=== PATIENT | male | born 1995 | race Caucasian/White ===

== ENCOUNTER 2018-11-24 17:10 | Emergency (ER) | payer MEDICAID, SELFPAY ==
[2018-11-24 17:12] VITALS: BP 156/103; PULSE 111; RESP 14; TEMP 36.7; O2SAT 95; BMI 28.4
--- NOTE | 2018-11-24 18:53 | ED.VISSUMM ---
- ER Visit Summary Date of Service: 11/24/18 Chief Complaint: Nausea, vomiting, diarrhea History of Present Illness: The patient is a 23 M presents to the emergency department approximately 18 hours of symptoms of gastroenteritis. Patient states that last night, he began to have some abdominal cramping. He states that he was having a mild headache and generalized malaise. He states shortly thereafter, he began to vomit. He states he vomited about 2 or 3 times. He is now had 10 episodes of loose, watery diarrhea. He does not think he had fever. He does admit to some myalgias and arthralgias. He denies any recent sick contacts. There is been no blood in the emesis or the diarrhea. He has no history of Crohn's disease or ulcerative colitis. He has no history of prior abdominal surgery. Physical Examination: Vital signs reviewed General: Well-nourished, well-developed Head: Normocephalic, atraumatic Eyes: Pupils equal and reactive, extraocular muscles intact Neck, supple, no lymphadenopathy Heart: Regular rate and rhythm Respiratory: No distress, clear bilaterally Abdomen: Soft, nontender, nondistended, no peritoneal signs Back: Nontender Extremities: Nontender, no edema, no cords Skin: Normal color no rash Neuro: Alert and oriented, no focal or lateralizing deficits Test Results: [] Emergency Department Course and Treatment: The patient's abdomen is soft and nontender. He has no reproducible tenderness. His exam is relatively unremarkable. The patient did not want any IV medication or laboratory workup. I do feel that this is reasonable. He does appear to be well hydrated. He does not have a fever. He has no focal tenderness. The patient is treated with Zofran, Bentyl, Imodium, Tylenol. I will continue him on these medications as an outpatient. He was counseled on concerning symptoms and reasons to return. He will be discharged home. Treatment Plan: [] Disposition: Discharge Impression: Gastroenteritis This note was generated with [employer] dictation software. It may contain incorrect words, spelling, and punctuation that were not noted in review of the chart prior to signing ED Disposition - Plan for ED Patient: Chief Complaint: Nausea/Vomiting/Diarrhea Instructions: ED Gastroenteritis Vs Food Poison Prescriptions: Ondansetron [Zofran Odt] 4 mg PO Q8H PRN PRN #10 tab PRN Reason: Nausea Dicyclomine HCl [Bentyl] 20 mg PO TIDAC #20 cap Referrals: Care Physician,No Primary [Primary Care Provider] -
[2018-11-24] MEDS: Dicyclomine 10 MG Capsule 20 MG PO (19:00)
[2018-11-24] MEDS: Acetaminophen 500 MG Tablet 1000 MG PO (19:00)
[2018-11-24] MEDS: Loperamide 2 MG Capsule 4 MG PO (19:00)
[2018-11-24] MEDS: Ondansetron ODT 4 MG Tablet 8 MG PO (19:00)
[2018-11-24 19:46] VITALS: BP 137/77; PULSE 90; RESP 16; O2SAT 94
== END 2018-11-24 19:47 | disposition home or self-care (01) ==
LOC: ED 19:10
PROVIDERS: Emergency Provider Emergency Medicine
DX: K52.9 Noninfective gastroenteritis and colitis, unspecified (principal)
CPT/HCPCS: 99283

== ENCOUNTER 2019-02-25 23:35 | Emergency (ER) | payer MEDICAID, SELFPAY ==
[2019-02-25 23:36] VITALS: BP 140/95; PULSE 115; RESP 18; TEMP 37.2; O2SAT 99; BMI 25.4
--- NOTE | 2019-02-25 23:48 | EKG12_ITS ---
Test Reason : HEAD INJURY Blood Pressure : / mmHG Vent. Rate : 098 BPM Atrial Rate : 098 BPM P-R Int : 150 ms QRS Dur : 094 ms QT Int : 356 ms P-R-T Axes : 038 031 016 degrees QTc Int : 454 ms Normal sinus rhythm Nonspecific T wave abnormality Abnormal ECG Confirmed by ASHLEY SALAZAR, PRISCILA ([id number]), marketing editor KRZYSZTOF EDDY ([id number]) on 03/02/2019 1:42:07 PM Referred By: YIN Confirmed By:PRISCILA RAMIREZ MD
--- NOTE | 2019-02-26 00:05 | CT_ITS ---
HISTORY: fall, hit back of head, headache, patient admits to drinking EXAMINATION: CT Spine Cervical W/O Contrast TECHNIQUE: Helically acquired images were obtained of the cervical spine. 2D reformatted images were reviewed. A radiation dose optimization technique was used for this scan. IV Contrast dosage and agent: None. COMPARISON: None FINDINGS: Visualization of the craniocervical junction and C1-C5 vertebrae. Motion artifact with nonvisualization of the lower cervical spine and upper dorsal spine. The CT exam as overall nondiagnostic in this regard. Intact dens and craniocervical junction. Straightening of the upper cervical spine with mild reversal of the normal cervical lordosis. The C1-C5 vertebra appear intact. Corresponding disc space heights are preserved. CT/Spine Cervical without Contras IMPRESSION: 1. Overall nondiagnostic exam secondary to motion artifact. 2. Intact craniocervical junction, dens, and C1-C5 vertebrae. 3. Consider follow-up CT exam if needed. Individualized dose optimization techniques were used for this CT. at 0126 Reported and signed by: Scot Gardiner MD Electronically Signed: Scot Gardiner, at 1:25 EDT Tel , Service support ,
[2019-02-26] MEDS: 0.9% Normal Saline 1,000 ML 1000 ML IV (00:08)
--- NOTE | 2019-02-26 00:14 | CT_ITS ---
HISTORY: fall, hit back of head, headache, patient admits to drinking EXAMINATION: CT Head or Brain W/O Contrast TECHNIQUE: Multiple axial images were obtained of the brain without intravenous contrast. A radiation dose optimization technique was used for this scan. IV Contrast dosage and agent: None. COMPARISON: Cranial CT report but not images 11/28/2013 FINDINGS: Normal ventricles and normal juares-white matter differentiation. No intracranial mass, hemorrhage, or acute intracranial abnormality. Posterior fossa structures are unremarkable. No suspicious extra-axial fluid collection. The calvarium appears intact. As visualized, the mastoids appear clear. Small dependent fluid levels within both maxillary sinuses and partial opacification of the left sphenoid sinus. CT/Brain/Head without Contrast IMPRESSION: 1. Normal CT brain without contrast. 2. Paranasal sinusitis, as above. Individualized dose optimization techniques were used for this CT. at 0119 Reported and signed by: Scot Gardiner MD Electronically Signed: Scot Gardiner, at 1:18 EDT Tel , Service support ,
[2019-02-26 00:19] LABS: Absolute Lymphocyte Count 1.66 X10^3/ul (0.83-4.51); Absolute Neutrophil Count 11.7 X10^3/uL (2.0-7.7); Basophil# 0.02 X10^3/uL; Basophil% 0.1 % (0-1); Eosinophil# 0.05 X10^3/uL; Eosinophils% 0.3 % (0-5); Hematocrit 48.2 % (40-54); Hemoglobin 16.6 g/dl (13.0-16.5); Lymphocyte # 1.66 X10^3/ul (4.0); Lymphocyte % 11.6 % (19-41); Mean Corp Hgb Conc 34.4 g/gl (32-36); Mean Corpuscular Hgb 30.3 pg (27.0-32.0); Mean Corpuscular Volume 88.1 fL (80-94); Monocyte# 0.87 X10^3/uL; Monocyte% 6.1 % (0-10); Neutrophil # 11.69 X10^3/uL (2.7-7.7); Neutrophil % 81.6 % (47-70); Platelet Count 190 K/mm3 (150-450); RBC Distribution Width CV 12.3 % (11.6-14.6); RBC Distribution Width SD 39.5 fl (35.1-43.9); Red Blood Count 5.47 M/mm3 (4.6-6.2); White Blood Count 14.3 K/mm3 (4.4-11.0)
[2019-02-26 00:24] LABS: Anion Gap 4 (5-15); BUN 16 mg/dL (7-18); BUN/Creat Ratio 12.7 RATIO (10-20); Calcium,Total 8.5 mg/dL (8.5-10.1); Chloride 103 mmol/L (98-107); Creatinine, Serum 1.26 mg/dL (0.70-1.30); EST Glomerular Filtration Rate 75 mL/min (>60); Est Glom Filt Rate - Afr Amer 91 mL/min (>60); Estimated Creatinine Clearance 100.08 ml/min; Glucose 92 mg/dL (74-106); Sodium Level 137 mmol/L (136-145)
[2019-02-26 00:26] LABS: POSITIVE COUNT NO; POSITIVE DIFFERENTIAL NO; POSITIVE MORPHOLOGY NO
--- NOTE | 2019-02-26 01:39 | ED.DCSUM_ITS ---
- ER Visit Summary Date of Service: 02/26/19 Chief Complaint: Head injury History of Present Illness: The patient is a 23 M reports falling off a barstool tonight and hitting his head on the floor. He states he did not have much to drink and does not know why he fell. He did lose consciousness. Patient reports history of irregular heartbeat. He has had syncope in the past. Physical Examination: Vital signs remarkable only for heart rate of 115. Patient sitting upright in bed no acute distress. Head neck examination reveals no obvious external sign of trauma. He has mild C-spine tenderness. Heart is regular rate and rhythm. Lung sounds are clear. Abdomen is soft nontender. Neuro exam is unremarkable. Test Results: EKG is sinus at 98 with no sign of acute ischemia. CBC reveals a white count of 14.3 with 81% neutrophils. Hemoglobin is concentrated at 16.6. Chemistry studies unremarkable. EtOH is 23. CT head is normal. CT the C-spine shows motion artifact, the spine is intact from base of skull through C5. Emergency Department Course and Treatment: Patient is given IV fluids and a dose of Toradol. Test results discussed with the patient. Treatment Plan: [] Disposition: Discharge Impression: 1. Fall 2. Closed head injury This note was generated with [employer] dictation software. It may contain incorrect words, spelling, and punctuation that were not noted in review of the chart prior to signing ED Disposition - Plan for ED Patient: Disposition: Home or Assisted Living Instructions: ED Head Injury Closed Prescriptions: Naproxen [Naprosyn] 500 mg PO BID PRN PRN #20 tablet PRN Reason: Pain Referrals: Chava Blanchard MD [NON-STAFF] - As Needed
[2019-02-26] MEDS: Ketorolac 30 MG/ML Syringe IV (02:26)
[2019-02-26 02:47] VITALS: BP 128/86; PULSE 102; RESP 18; O2SAT 100
--- NOTE | 2019-02-26 19:28 | ED.RN ---
mother of patient called in looking for patient. Advised mother patient was discharged home
== END 2019-02-26 03:10 | disposition home or self-care (01) ==
PROVIDERS: Emergency Provider Emergency Medicine
DX: S09.90XA Unspecified injury of head, initial encounter (principal); W08.XXXA Fall from other furniture, initial encounter; Y93.9 Activity, unspecified; Y92.9 Unspecified place or not applicable; Y99.9 Unspecified external cause status; Z72.0 Tobacco use
CPT/HCPCS: 70450; 72125; 80048; 80320; 85025; 93005; 96361; 96374; 99285; J7030; A4216; G0480

== ENCOUNTER 2019-02-28 12:59 | Emergency (ER) | payer MEDICAID, SELFPAY ==
[2019-02-28 13:00] VITALS: BP 160/101; PULSE 101; RESP 16; TEMP 36.7; O2SAT 96; BMI 26.4
--- NOTE | 2019-02-28 13:15 | CT_ITS ---
STUDY: CT BRAIN WITHOUT CONTRAST REASON FOR EXAM: Male, 23 years old. Head injury RADIATION DOSAGE (If Supplied By Facility): CTDIvol = ( 44.99 ) mGy, DLP = ( 829.85 ) mGycm TECHNIQUE: Transaxial CT imaging of the brain was performed without administration of intravenous contrast material. Individualized dose optimization techniques were used for this CT. COMPARISON: None. FINDINGS: There is no acute bleed or infarct. There are normal white matter tracts. The ventricles are normal in configuration. There is no hydrocephalus. The visualized paranasal sinuses are clear. The mastoid air cells are well aerated. There is no skull fracture. CT/Brain/Head without Contrast IMPRESSION: No acute intracranial abnormality. Electronically Signed: Seferino Rice, at 14:02 EDT Tel , Service support ,
--- NOTE | 2019-02-28 13:21 | ED.DCSUM_ITS ---
- ER Visit Summary Date of Service: 02/28/19 Chief Complaint: [Head injury] History of Present Illness: The patient is a 23 M [presents the emergency department after sustaining a head injury about 3 days ago. Patient states that he was at a bar/restaurant and had one beer and started to eat is burger. Chandra lindsay states that he fell back off his stool and struck his head on the ground. Patiently unconscious for several minutes. Patient eventually was seen in the emergency department that evening and had a CT scan of his brain that was unremarkable. Patient comes in with continued headache. Patient has had a difficult time sleeping. Complains of lightheadedness often. Complains of photophobia. He finally was told to return if symptoms worsen. Patient has had nausea but no vomiting.] Physical Examination: [HEENT-PERRLA, EOMI. Cranial nerves II through XII grossly intact. TMs clear. Mucous membranes moist. No adenopathy. Cardiovascular-regular rate and rhythm without murmur or ectopy Lungs-clear to auscultation, chest wall stable without crepitus or subcu emph ysema. Patient has superficial abrasions to the left anterior chest that were self-inflicted last evening. Abdomen-normoactive bowel sounds, soft, nontender, no rebound or rigidity, no peritoneal signs. Neuro yeqq-doldrr-jxhh and heel craig testing within normal limits, negative Romberg, negative pronator drift, fundi benign Extremities-intact ?4, normal range of motion, normal pulses. Left forearm- patient has superficial abrasions that were self-inflicted last evening.] Test Results: [CT scan of the brain without contrast was unremarkable.] Emergency Department Course and Treatment: [Patient advised use ibuprofen and Tylenol for discomfort. Patient will avoid screen time. Patient to get lots of rest and drink plenty of fluids.] Treatment Plan: [Follow-up with primary care physician within next 5 to 7 days. Patient is not suicidal or homicidal. He does not feel that he needs to speak with crisis.] Disposition: [Discharged home in stable condition.] Impression: [Postconcussive syndrome] This note was generated with [employer] software. It may contain incorrect words, spelling, and punctuation that were not noted in review of the chart prior to signing ED Disposition - Plan for ED Patient: Referrals: Care Physician,No Primary [Primary Care Provider] -
--- NOTE | 2019-02-28 13:39 | ED.RN ---
pt has superficial wound from self mutilation. wounds are clean and appear to be healing well. dr was informed. pt has a current psychologist with upcoming appointment. dr states pt doesn't need crisis to follow up with at current time. ariadna madden, rn [id number]
--- NOTE | 2019-02-28 14:10 | ED.DEP ---
ED Disposition - Plan for ED Patient: Instructions: ED Concussion Referrals: Care Physician,No Primary [Primary Care Provider] - Michelle Allison MD [STAFF PHYSICIAN] - 5-7 Days
[2019-02-28] MEDS: Diphth,Pertuss(Acell),Tet Vac 0.5 ML Vial IM (14:29)
== END 2019-02-28 14:57 | disposition home or self-care (01) ==
LOC: ED 13:37
PROVIDERS: Emergency Provider Emergency Medicine
DX: F07.81 Postconcussional syndrome (principal); I10 Essential (primary) hypertension; F32.9 Major depressive disorder, single episode, unspecified; F41.9 Anxiety disorder, unspecified; Z72.0 Tobacco use
CPT/HCPCS: 70450; 90715; 99284

== ENCOUNTER 2019-03-01 10:12 | Emergency (ER) | payer MEDICAID, SELFPAY ==
[2019-02-28 13:00] VITALS: BMI 26.4
[2019-03-01 10:12] VITALS: BP 142/94; PULSE 121; RESP 16; TEMP 37.1; O2SAT 94; BMI 26.4
--- NOTE | 2019-03-01 10:27 | ED.VIS.GEN ---
History of Present Illness Chief Complaint: Headache Informant: Patient, Significant Other Onset: - - Third visit status post initial head trauma on February 26 and repeat visit February 28 Context: - - Patient felt he needed to be reevaluated because his body felt stiff while asleep Timing: - Quality: Initial injury February 26. Had second head trauma yesterday February 28. Location: [facility] Current Severity: - - Unable to determine Maximum Severity: Severe Worsened by: Multiple things Relieved by: Nothing Associated Symptoms: Headache, photophobia, orthostatic, nausea Narrative: Patient is a 23-year-old male who had head trauma with loss of conscious on February 26. He was seen in the emerge department had a CT of the head and neck which were interpreted by radiologist as negative. He states he hit his head yesterday and was seen and rescanned. He reports last evening while asleep his body became stiff. He states he was convulsing. When asked if he was asleep had his he know if his body was stiff or he had a seizure. He was unable to answer my question. There was no incontinence of urine or stool. He did not bite his tongue. He does not have history of seizure disorder. Prior similar symptoms: Yes Recent Illness/Hospitalization: Yes - Past Medical History (1) Concussion with brief LOC Status: Acute Past Medical History - Allergies and Home Meds Allergies/Adverse Reactions: Allergies amoxicillin [Amoxicillin] Allergy (Verified 02/28/19 13:00) Hives bee venom protein (honey bee) Allergy (Verified 02/28/19 13:00) Angioedema Penicillins Allergy (Verified 02/28/19 13:00) Hives Primary Care Physician: Care Physician,No Primary [Primary Care Provider] - Prior records reviewed: Yes Surgical History: no surgical history Lives: Spouse/ Significant Other Smoking Status: Current every day smoker Alcohol: Rare Review of Systems General: Denies: Chills, Fever, Malaise, Sweats Eyes: Reports: - - Photophobia. Denies: Visual changes - bilaterally, Blurred Vision - bilaterally, Diplopia ENT: Denies: Rhinorrhea, Sore throat Cardiovascular: Denies: Chest pain, Palpitations Respiratory: Denies: Dyspnea, Cough, Dyspnea on exertion Gastrointestinal: Reports: Nausea. Denies: Abdominal pain, Vomiting, Diarrhea, Melena, Hematochezia Genitourinary: Denies: Dysuria, Hematuria, Frequency Musculoskeletal: Denies: Back pain, Extremity Pain Skin: Denies: Rash, Wounds Neurological: Reports: Headache. Denies: Weakness, Parasthesia, Numbness Psych: Reports: Anxiety Allergy: Denies: Uticaria, Swelling of the mouth Physical Exam Vital Signs/Narrative: Vital Signs Temp Pulse Resp BP Pulse Ox 03/01/19 10:12 98.8 F 121 H 16 142/94 H 94 Inital Vital Signs reviewed: Yes General: Well nourished, Well developed, No Acute Distress Head: Normocephalic, Atraumatic. Negative for: Trauma, Tenderness Eyes: Perrl, EOMI, - - Funduscopic exam reveals no papilledema.. Negative for: Pale conjunctiva, Scleral icterus ENT: Moist mucous membranes, No rhinorrhea. Negative for: TM's clear Neck: Supple, Nontender, - - He grimaces with flexion of his neck.. Negative for: No lymphadenopathy, No JVD Cardiovascular: Regular rate, Regular rhythm, No murmurs, Normal S1, Normal S2 Respiratory: No distress, CTA bilaterally, Chest nontender Abdomen: Soft, Nontender, Nondistended, Normal bowel sounds Back: Nontender, Normal Inspection Extremities: Nontender, No edema Skin: Normal color, No rash Neurological: Alert, Oriented x3, Cranial nerves II-XII grossly intact, Normal Strength, Normal Sensation, Normal DTR - There was no clonus or Babinski sign., Normal Gait, - - Romberg test with eyes open and closed were normal. Psychological: Normal affect, Normal Mood Diagnostic/Tx/Re-eval - Medical Decision Making Records from February 26 and February 28 were reviewed. Patient's history and physical is consistent with concussion. Since there has been no new injury since February 28 and his neuro exam is nonfocal with a GCS of 15. The imaging is not indicated or warranted. Patient was informed his symptoms are consistent with concussion. He was informed that 90 to 95% of patients have resolution of those symptoms in 4 to 6 weeks. He was instructed to avoid activity that causes his symptoms to worsen. ED Disposition - Plan for ED Patient: Disposition: Home or Assisted Living Diagnosis: Concussion syndrome Instructions: ED Concussion Referrals: Care Physician,No Primary [Primary Care Provider] -
--- NOTE | 2019-03-01 10:46 | ED.DEP ---
ED Disposition - Plan for ED Patient: Disposition: Home or Assisted Living Diagnosis: Concussion syndrome Instructions: ED Concussion Prescriptions: Ondansetron [Zofran Odt] 4 mg PO Q8H PRN PRN #10 tab PRN Reason: Nausea Referrals: Care Physician,No Primary [Primary Care Provider] -
== END 2019-03-01 10:53 | disposition home or self-care (01) ==
PROVIDERS: Emergency Provider Emergency Medicine
DX: F07.81 Postconcussional syndrome (principal); F17.200 Nicotine dependence, unspecified, uncomplicated
CPT/HCPCS: 99282

== ENCOUNTER 2019-06-07 16:25 | Emergency (ER) | payer MEDICAID, SELFPAY ==
[2019-06-07 16:26] VITALS: BP 138/85; PULSE 106; RESP 18; TEMP 36.5; O2SAT 97; BMI 25.2
--- NOTE | 2019-06-07 17:33 | ED.VISSUMM ---
- ER Visit Summary Date of Service: 06/07/19 Chief Complaint: Neck pain and bump on his left leg History of Present Illness: The patient is a 23 M who presents with neck pain that has been getting progressively worse over the past few days. Patient denies any trauma or injury. Patient states he felt a pop in his neck. Patient states the pain is gotten worse today. States pain radiates into his head and gives him a headache. Patient admits to some tingling in his fingers bilaterally. 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 Patient states he had an MRI of his cervical spine approximately 6 months ago in [place] but never followed up for the results. Patient also noticed a red bump on his left anterior thigh yesterday. Patient denies any discharge or drainage. Patient denies any fevers or chills. Patient admits to some slight redness around the area. Physical Examination: Vital signs are stable. Patient is afebrile. Patient is in no acute distress. Musculoskeletal exam reveals tenderness over the cervical paraspinal muscles bilaterally. There is mild midline tenderness. There is no bony crepitance or step-off. There is spasm of the cervical paraspinal muscles. There is good range of motion of the cervical spine. Strength is 5/5 bilateral knee upper extremities. There are no sensory deficits noted. Skin is warm and dry. There is one small pustule noted over the anterior aspect of the left proximal thigh. It is approximately 3 mm in diameter. There is some mild purulent drainage in the middle of the pustule. There is no fluctuance. Emergency Department Course and Treatment: Patient was advised that this is a small pustule from a likely hair follicle. Patient was also advised that his neck pain is likely muscular strain. Since there is no trauma or injury I do not feel x-rays or any imaging is necessary at this time. Patient was given prescription for Naprosyn. Patient was instructed to use ice to his neck. Patient was instructed to use warm compresses to his left thigh. Patient was also given a prescription for clindamycin. Patient was instructed to use bacitracin ointment to his thigh. Patient understood and was agreeable with plan. All questions were answered. Disposition: Discharge home Impression: 1. Acute cervical strain 2. Pustule left thigh This note was generated with Dragon dictation software. It may contain incorrect words, spelling, and punctuation that were not noted in review of the chart prior to signing ED Disposition - Plan for ED Patient: Disposition: Home or Assisted Living Diagnosis: Cervical myofascial strain, Skin pustule Instructions: Neck Sprain/Strain Prescriptions: Clindamycin HCl [Cleocin] 300 mg PO Q6H #28 cap Prescription Printed Naproxen [Naprosyn] 500 mg PO BID PRN #20 tab Prescription Printed Referrals: Care Physician,No Primary [Primary Care Provider] - 5-7 Days
[2019-06-07 18:03] VITALS: PULSE 97; RESP 18; O2SAT 99
== END 2019-06-07 18:04 | disposition home or self-care (01) ==
PROVIDERS: Emergency Provider Emergency Medicine
DX: S16.1XXA Strain of muscle, fascia and tendon at neck level, initial encounter (principal); L08.9 Local infection of the skin and subcutaneous tissue, unspecified; F17.210 Nicotine dependence, cigarettes, uncomplicated
CPT/HCPCS: 99283

== ENCOUNTER → 2019-07-05 15:12 | Outpatient (CLI) | payer OTHER, SELFPAY ==
[2019-06-07 16:26] VITALS: BMI 25.2
--- NOTE | 2019-07-05 15:18 | MRI_ITS ---
STUDY: MRI LEFT SHOULDER REASON FOR EXAM: Pain and decreased range of motion for 2 weeks to a month from shoulder injury. TECHNIQUE: Standardized fat and water weighted pulse sequences were obtained in all 3 orthogonal planes. COMPARISON: None. FINDINGS: There is mild supraspinatus tendinosis (T2 coronal images 11-13) without discrete tendon tear. Normal infraspinatus tendon. Normal subscapularis tendon. Normal teres minor tendon. Normal supraspinatus muscle. Normal infraspinatus muscle. Normal subscapularis muscle. Normal teres minor muscle. Normal glenohumeral articulation. Normal humeral head and visualized proximal humerus. Normal biceps labral complex. Normal intracapsular long biceps tendon. There is a subtle posterior labral tear (proton density axial images 10-13) with very small paralabral cysts (T2 axial images 10, 13; T2 coronal images 4, 5). Normal capsulo- ligamentous complex. Normal acromioclavicular articulation. There is a Type II morphology (curved), with a neutral orientation. There is no subacromial-subdeltoid bursal fluid. Normal visualized coracohumeral and coracoacromial ligaments. Normal deltoid muscle. Normal trapezius muscle. MRI/Upper Ext Joint Only(Routine) IMPRESSION: Subtle posterior labral tear with very small paralabral cysts. Mild supraspinatus tendinosis without demonstrated rotator cuff tear. Electronically Signed: Abiel Ramey MD at 9:08 EDT Tel , Service support ,
== END ==
PROVIDERS: Referring Provider Emergency Medicine; Visit Provider Emergency Medicine
DX: S43.402A Unspecified sprain of left shoulder joint, initial encounter (principal)
CPT/HCPCS: 73221

== ENCOUNTER 2019-07-24 14:53 | Emergency (ER) | payer MEDICAID, SELFPAY ==
[2019-07-24 14:54] VITALS: BP 130/71; PULSE 116; RESP 16; TEMP 36.6; O2SAT 95; BMI 24.2
--- NOTE | 2019-07-24 15:05 | RAD_ITS ---
STUDY: X-RAY - LEFT TIBIA AND FIBULA REASON FOR EXAM: Male, 24 years old. Softball hit leg TECHNIQUE: 3 view(s) of the tibia and fibula were obtained. COMPARISON: None. FINDINGS: Normal visualized tibia. Normal visualized fibula. The soft tissue structures are unremarkable. RAD/Tibia & Fibula 2 Views IMPRESSION: Normal x-ray examination of the tibia and fibula. Electronically Signed: Mariela Huynh MD at 16:23 EDT Tel , Service support ,
--- NOTE | 2019-07-24 15:14 | ED.VIS.GEN ---
History of Present Illness <NeydaSloan - Last Filed: 07/24/19 16:06> Informant: Patient Onset: Today Narrative: Patient presents to the ED with left ankle and craig pain. Prior to arrival, he was at a batting cage when 1 of the pitches hit his left lateral ankle. He has had pain since. He has not taken anything for pain. He denies any other injury. <EllisashwiniElaine - Last Filed: 07/24/19 16:12> Chief Complaint: Lower Extremity Injury Past Medical History <NeydaSloan - Last Filed: 07/24/19 16:06> Surgical History: no surgical history Smoking Status: Never smoker <BijanElaine - Last Filed: 07/24/19 16:12> - Allergies and Home Meds Allergies/Adverse Reactions: Allergies amoxicillin [Amoxicillin] Allergy (Verified 07/24/19 14:57) Hives bee venom protein (honey bee) Allergy (Verified 07/24/19 14:57) Angioedema Penicillins Allergy (Verified 07/24/19 14:57) Hives Primary Care Physician: Kaitlin Huggins MD [COURTESY STAFF PHYSICIAN] - 10-14 Days if not better Review of Systems General: Denies: Chills, Fever, Sweats Eyes: Denies: Visual changes - bilaterally, Diplopia ENT: Denies: Rhinorrhea, Sore throat Cardiovascular: Denies: Chest pain, Palpitations Respiratory: Denies: Dyspnea, Cough, Dyspnea on exertion Gastrointestinal: Denies: Abdominal pain, Nausea, Vomiting, Diarrhea, Melena, Hematochezia Genitourinary: Denies: Dysuria, Hematuria, Frequency Musculoskeletal: Reports: - - Left ankle pain. Skin: Denies: Rash, Wounds Neurological: Denies: Headache, Weakness, Numbness <BijanElaine - Last Filed: 07/24/19 16:12> Physical Exam Vital Signs/Narrative: Vital Signs Temp Pulse Resp BP Pulse Ox 07/24/19 14:54 97.9 F 116 H 16 130/71 H 95 <NeydaSloan - Last Filed: 07/24/19 16:06> Vital Signs/Narrative: Vital Signs Temp Pulse Resp BP Pulse Ox 07/24/19 14:54 97.9 F 116 H 16 130/71 H 95 General: Well nourished, Well developed, No Acute Distress Head: Normocephalic, Atraumatic Eyes: Perrl, EOMI ENT: Moist mucous membranes, No rhinorrhea Neck: Supple, Nontender Cardiovascular: Regular rate, Regular rhythm, No murmurs Respiratory: No distress, CTA bilaterally, Chest nontender Abdomen: Soft, Nontender, Nondistended, Normal bowel sounds Back: Nontender, Normal Inspection Extremities: No edema, - - Tenderness to palpation over left lateral ankle and mid craig. There is no edema, erythema, ecchymosis. Full left foot, ankle, and knee range of motion. No obvious deformity. DP and PT pulses 2+. Normal sensation. Compartments soft and compressible. Skin: Normal color, No rash Neurological: Alert, Oriented x3, Cranial nerves II-XII grossly intact, Normal Strength, Normal Sensation Psychological: Normal affect, Normal Mood <Elaine Thakkar - Last Filed: 07/24/19 16:12> Diagnostic/Tx/Re-eval - Medical Decision Making Seen and evaluated independently and in conjunction with physician life science research assistant. Agree with notes above unless documented otherwise. Patient had a blunt injury with a baseball at a batting cage versus his anterolateral left ankle, around 3 or 4 cm proximal to the lateral malleolus and a little anterior. X-rays on my interpretation, 3 views of the ankle and 3 views of the tib-fib are normal-appearing with no sign of bony injury. He is having trouble moving his foot, I suspect this is because he had blunt trauma to the distal aspect of the anterior compartment musculature. His compartments are all soft and nondistended. Supportive care is advised with close outpatient follow-up, as I discussed with him if he did have any type of rupture or significant soft tissue injury that required further evaluation, that would be very difficult to evaluate for now since he is having painful dorsiflexion that could be present due to simple contusion which is the more likely diagnosis. He understands this and will follow-up as needed. <Sloan Faye - Last Filed: 07/24/19 16:06> - Medical Decision Making Patient presents to the ED with injury to his left anterior lateral craig. X-rays are unremarkable for acute injury. Patient was educated his symptoms are most consistent with contusion. Is no signs/symptoms concerning for compartment syndrome. He was given ibuprofen here for analgesia. Educated on rice therapy and [id number] analgesics. He was given PCP referral to establish care. Educated on signs/symptoms to return to the ED. He is provided discharge instructions and agreeable to plan. Impression: Left craig contusion. Disposition: Home stable <Elaine Thakkar - Last Filed: 07/24/19 16:12> ED Disposition <Sloan Faye - Last Filed: 07/24/19 16:06> <Elaine Thakkar - Last Filed: 07/24/19 16:12> - Plan for ED Patient: Disposition: Home or Assisted Living Diagnosis: Contusion of left lower leg, initial encounter Instructions: CONTUSION, Lower Extremity Referrals: Kaitlin Huggins MD [COURTESY STAFF PHYSICIAN] - 10-14 Days if not better
--- NOTE | 2019-07-24 15:15 | RAD_ITS ---
STUDY: X-RAY - LEFT ANKLE REASON FOR EXAM: Male, 24 years old. Softball hit leg TECHNIQUE: 3 view(s) of the ankle. COMPARISON: None. FINDINGS: Normal visualized distal tibia and fibula. Normal medial and lateral malleoli. Normal tibiotalar articulation and ankle mortise. Normal visualized talus and calcaneus. The visualized subtalar, talonavicular, calcaneocuboid and tarsal articulations are normal. The soft tissue structures are unremarkable. RAD/Ankle min 3 Views IMPRESSION: Normal x-ray examination of the ankle. Electronically Signed: Mariela Huynh MD at 16:23 EDT Tel , Service support ,
[2019-07-24] MEDS: Ibuprofen 600 MG Tablet PO (15:37)
== END 2019-07-24 16:15 | disposition home or self-care (01) ==
PROVIDERS: Emergency Provider Physician Assistant
DX: S80.12XA Contusion of left lower leg, initial encounter (principal); W21.07XA Struck by softball, initial encounter; Z88.0 Allergy status to penicillin
CPT/HCPCS: 73590; 73610; 99283

== ENCOUNTER 2019-08-08 17:02 | Emergency (ER) | payer MEDICAID, SELFPAY ==
[2019-08-08 17:02] VITALS: BP 148/100; PULSE 101; RESP 18; TEMP 36.2; O2SAT 100; BMI 24.7
--- NOTE | 2019-08-08 17:18 | EKG12_ITS ---
Test Reason : CP Blood Pressure : / mmHG Vent. Rate : 100 BPM Atrial Rate : 100 BPM P-R Int : 140 ms QRS Dur : 090 ms QT Int : 360 ms P-R-T Axes : 037 026 016 degrees QTc Int : 464 ms Normal sinus rhythm Nonspecific T wave abnormality Prolonged QT Abnormal ECG Confirmed by PAT ROWLAND ([id number]), food editor EVELYN HAMILTON ([id number]) on 08/11/2019 8:32:07 AM Referred By: JI Confirmed By:PAT ROWLAND
--- NOTE | 2019-08-08 17:29 | ED.DCSUM_ITS ---
- ER Visit Summary Date of Service: 08/08/19 Chief Complaint: Chest pain History of Present Illness: The patient is a 24 M who presents with chest pain that began approximately 3 hours prior to arrival. Patient states she was watching TV when the pain began. Patient describes the pain as stabbing and tightness. Patient states the pain is over the left chest. Patient states nothing makes it better or worse. Patient admits to some paresthesias in his fingers. Patient also admits to some generalized weakness and dizziness. Patient admits to some shortness of breath. Patient also states he broke it into a sweat when the pain began. Patient also admits to some palpitations. Patient's only cardiac risk factor is smoking. Patient denies any PE risk factors. Physical Examination: Vital signs are stable except for mild tachycardia of 101. Patient is afebrile. Patient is in no acute distress. Oral mucosa is pink and moist. Neck is supple. Trachea is midline. There is no JVD noted. Heart was regular rate and rhythm. Lungs are clear and equal bilaterally. There is reproducible tenderness over the left anterior chest wall. There is no bony crepitance or step-off. Abdomen is soft. Bowel sounds are normal. There is no tenderness. Cranial nerves II through XII are intact. There are no focal motor or sensory deficits noted. Musculoskeletal exam does not show any tenderness or edema of the lower extremities. Test Results: EKG showed sinus rhythm with a rate of 100. There are nonspecific ST-T wave changes. There are no acute ST or T wave changes. This was unchanged compared to previous EKG dated 02/26/2019. CBC and basic metabolic profile were obtained and were within normal limits. Troponin was normal. PA and lateral chest x-ray was obtained. There is no acute cardiopulmonary process. Emergency Department Course and Treatment: Patient was given an injection of Toradol here. Patient felt better on reevaluation. Patient was advised of his results. Patient has a HEART score of 2. Patient was advised that this is low risk for acute cardiac event. Patient was instructed to follow-up with his primary care physician in 5 to 7 days. Patient was instructed to take Tylenol or ibuprofen as needed for pain. She understood and was agreeable with the plan. All questions were answered. Disposition: Discharge home Impression: Chest pain of uncertain etiology This note was generated with Secure-24ation software. It may contain incorrect words, spelling, and punctuation that were not noted in review of the chart prior to signing ED Disposition - Plan for ED Patient: Disposition: Home or Assisted Living Diagnosis: Chest pain of uncertain etiology Instructions: CHEST PAIN, Uncertain Cause Referrals: Care Physician,No Primary [Primary Care Provider] - Peter Pop DO [NON CLINICAL AFFILIATE] - 3-5 Days
[2019-08-08 17:31] LABS: Absolute Lymphocyte Count 2.08 X10^3/uL (0.83-4.51); Absolute Neutrophil Count 5.4 X10^3/uL (2.0-7.7); Basophil# 0.04 X10^3/uL; Basophil% 0.5 % (0-1); Eosinophil# 0.05 X10^3/uL; Eosinophils% 0.6 % (0-5); Hematocrit 49.9 % (40-54); Hemoglobin 17.5 g/dL (13.0-16.5); Lymphocyte # 2.08 X10^3/ul (4.0); Lymphocyte % 25.2 % (19-41); Mean Corp Hgb Conc 35.1 g/dL (32-36); Mean Corpuscular Hgb 31.6 pg (27.0-32.0); Mean Corpuscular Volume 90.2 fL (80-94); Mean Platelet Vol. 9.4 fl (6.2-12.0); Monocyte# 0.71 X10^3/uL; Monocyte% 8.6 % (0-10); NRBC Flagged by Analyzer 0 % (0-5); Neutrophil # 5.36 X10^3/uL (2.7-7.7); Neutrophil % 64.7 % (47-70); Platelet Count 229 K/mm3 (150-450); RBC Distribution Width SD 39.5 fl (35.1-43.9); Red Blood Count 5.53 M/mm3 (4.6-6.2); White Blood Count 8.3 K/mm3 (4.4-11.0)
[2019-08-08] MEDS: 0.9% Normal Saline 1,000 ML 1000 ML IV (17:36)
[2019-08-08] MEDS: Ketorolac 30 MG/ML Syringe IV (17:36)
[2019-08-08 17:47] LABS: Anion Gap 5 (5-15); BUN 14 mg/dL (7-18); BUN/Creat Ratio 13.2 RATIO (10-20); Chloride 103 mmol/L (98-107); Creatinine, Serum 1.06 mg/dL (0.70-1.30); EST Glomerular Filtration Rate 91 mL/min (>60); Est Glom Filt Rate - Afr Amer 110 mL/min (>60); Estimated Creatinine Clearance 117.95 ml/min; Glucose 96 mg/dL (74-106); Potassium 3.7 mmol/L (3.5-5.1); Sodium Level 138 mmol/L (136-145)
--- NOTE | 2019-08-08 17:50 | RAD_ITS ---
STUDY: X-RAY CHEST REASON FOR EXAM: Male, 24 years old. Shortness of breath. Dizziness and weakness. Symptoms began about 2:00 today. TECHNIQUE: PA and lateral views of the chest. COMPARISON: None. FINDINGS: The lungs are clear and expanded. There is no demonstrated pleural abnormality. Normal size heart. Normal mediastinum and josiane. Normal visualized pulmonary arteries. Normal visualized aortic arch and descending thoracic aorta. Normal visualized thoracic spine. Normal visualized ribs, clavicles, and shoulders. There is no demonstrated abnormality of the visualized soft tissue structures of the upper abdomen. RAD/Chest PA and Lateral IMPRESSION: No acute cardiopulmonary disease. Electronically Signed: Zach Jones DO at 18:09 EDT Tel [phone], Service support ,
[2019-08-08 19:31] VITALS: BP 135/62; PULSE 99; RESP 18; O2SAT 99
== END 2019-08-08 19:31 | disposition home or self-care (01) ==
PROVIDERS: Emergency Provider Emergency Medicine
DX: R07.89 Other chest pain (principal); R20.2 Paresthesia of skin; R61 Generalized hyperhidrosis; H53.8 Other visual disturbances; R06.00 Dyspnea, unspecified; M54.9 Dorsalgia, unspecified; R51 Headache; R53.1 Weakness; R42 Dizziness and giddiness; R00.2 Palpitations; R41.0 Disorientation, unspecified; Z72.0 Tobacco use
CPT/HCPCS: 71046; 80048; 84484; 85025; 93005; 96361; 96374; 99284; J7030; A4216

== ENCOUNTER 2019-09-08 16:58 | Emergency (ER) | payer MEDICAID, SELFPAY ==
[2019-09-08 16:59] VITALS: BP 119/70; PULSE 103; RESP 16; TEMP 37; O2SAT 97; BMI 24.7
--- NOTE | 2019-09-08 17:22 | RAD_ITS ---
STUDY: X-RAY - RIGHT ANKLE REASON FOR EXAM: Male, 24 years old. Twisting injury and posterior pain TECHNIQUE: 3 view(s) of the ankle. COMPARISON: None. FINDINGS: Normal visualized distal tibia and fibula. Normal medial and lateral malleoli. Normal tibiotalar articulation and ankle mortise. Normal visualized talus and calcaneus. The visualized subtalar, talonavicular, calcaneocuboid and tarsal articulations are normal. The soft tissue structures are unremarkable. RAD/Ankle min 3 Views IMPRESSION: No acute osseous injury is evident. Electronically Signed: Ta Valente MD at 18:06 EST Tel , Service support ,
--- NOTE | 2019-09-08 18:28 | ED.VISSUMM ---
- ER Visit Summary Date of Service: 09/08/19 Chief Complaint: [Injury to right ankle/Achilles] History of Present Illness: The patient is a 24 M [presents to the emergency department complaint of an injury to his right calf and Achilles tendon area that occurred yesterday while playing basketball. Patient states that he ran and jumped and felt a pop in his right ankle. Patient unable to bear weight since. Patient denies any other injuries.] Physical Examination: [HEENT-PERRLA, EOMI. Cranial nerves II through XII grossly intact. TMs clear. Mucous membranes moist. No adenopathy. Cardiovascular-regular rate and rhythm without murmur or ectopy Lungs-clear to auscultation, chest wall stable without crepitus or subcu emphysema Abdomen-normoactive bowel sounds, soft, nontender, no rebound or rigidity, no peritoneal signs. Extremities-intact ?4, normal range of motion, normal pulses, atraumatic. Right ankle-patient has some diffuse tenderness over the right Achilles tendon however there is no defect palpated in the tendon. Patient has a normal Gupta's test. Patient has some discomfort to palpation over the heel of the right foot. No ecchymosis or bruising noted about the ankle. Neurovascular intact distally.] Test Results: [Patient had a x-ray of his right ankle that was normal] Emergency Department Course and Treatment: [He was placed in a walking boot and crutches. Case was discussed with orthopedic surgeon who will be happy to see the patient as an outpatient.] Treatment Plan: [Follow up with orthopedics within the next 3 to 5 days] Disposition: [Discharged home in stable condition] Impression: [Right calf strain-possible partial tear of Achilles tendon] This note was generated with [employer] dictation software. It may contain incorrect words, spelling, and punctuation that were not noted in review of the chart prior to signing ED Disposition - Plan for ED Patient: Referrals: Care Physician,No Primary [Primary Care Provider] -
--- NOTE | 2019-09-08 18:30 | DCINST.ED_ITS ---
ED Disposition - Plan for ED Patient: Instructions: MUSCLE STRAIN, Extremity Prescriptions: Naproxen [Naprosyn] 500 mg PO BID PRN #20 tab Prescription Printed Hydrocodone Bitart/Apap 5-325 [[place] 5MG-325MG] 1 tab PO Q4H PRN PRN 2 Days #10 tab PRN Reason: Pain Prescription Printed Referrals: Care Physician,No Primary [Primary Care Provider] - Akua Esparza DO [STAFF PHYSICIAN] - 3-5 Days
== END 2019-09-08 18:46 | disposition home or self-care (01) ==
LOC: ED 17:38
PROVIDERS: Emergency Provider Emergency Medicine
DX: S86.111A Strain of other muscle(s) and tendon(s) of posterior muscle group at lower leg level, right leg, initial encounter (principal); S99.911A Unspecified injury of right ankle, initial encounter; X50.1XXA Overexertion from prolonged static or awkward postures, initial encounter; Y93.67 Activity, basketball; Z72.0 Tobacco use
CPT/HCPCS: 73610; 99284

== ENCOUNTER 2019-11-17 06:51 | Emergency (ER) | payer MEDICAID, SELFPAY ==
[2019-09-13 12:51] VITALS: BMI 24.7
[2019-11-17 06:52] VITALS: BP 142/93; PULSE 95; RESP 16; TEMP 37; O2SAT 99; BMI 25.6
--- NOTE | 2019-11-17 07:09 | ED.VIS.GI ---
History of Present Illness Chief Complaint: Nausea/Vomiting/Diarrhea Informant: Patient - Abdominal Pain/Flank Pain Onset: Weeks - 1 Context: Gradual Onset Timing: Intermittent Quality: Cramping Location: - - lower abd (pain) Current Severity: Gone - (pain) Maximum Severity: Mild Worsened by: Food Relieved by: Nothing - Nausea/Vomiting/Emesis GI Symptom: Nausea, Vomiting Onset: Weeks - 1 Severity: Moderate - Diarrhea/Melena/Hematochezia GI Symptom: Diarrhea, Hematochezia - streaky, once several days ago. Negative for: Melena Onset: Weeks - 1 Severity: Severe Associated Symptoms: - - decreased UOP; has been up x 1.5 hrs today and did urinate.. Negative for: Dysuria, Frequency, Hematuria, Urgency Narrative: Patient has vomiting diarrhea feeling dehydrated, malaise, subjective fevers, he gets some lower abdominal cramping just before he has diarrhea, then afterwards it lets up. He was around a friend/roommate who had this prior to him, and now his other roommate has this illness as well, starting after him. No recent travel out of the area or country, no recent antibiotics or suspicion for food poisoning according to the patient. Recent Illness/Hospitalization: No Past Medical History - Allergies and Home Meds Allergies/Adverse Reactions: Allergies amoxicillin [Amoxicillin] Allergy (Verified 11/17/19 06:56) Hives bee venom protein (honey bee) Allergy (Verified 11/17/19 06:56) Angioedema Penicillins Allergy (Verified 11/17/19 06:56) Hives Primary Care Physician: Estuardo Santos MD [STAFF PHYSICIAN] - As Needed (for primary care) Past Medical History: None Surgical History: no surgical history Lives: Roommate Smoking Status: Current every day smoker Drugs: None Review of Systems General: Reports: Fever, Malaise, Subjective, - - no syncope. Denies: Chills, Sweats Eyes: Denies: Visual changes - bilaterally, Diplopia ENT: Denies: Rhinorrhea, Sore throat Cardiovascular: Denies: Chest pain, Palpitations Respiratory: Denies: Dyspnea, Cough, Dyspnea on exertion Gastrointestinal: Reports: Abdominal pain, Nausea, Vomiting, Diarrhea, Hematochezia. Denies: Melena Genitourinary: Denies: Dysuria, Hematuria, Frequency Musculoskeletal: Denies: Neck pain, Back pain, Extremity Pain Skin: Denies: Rash, Wounds Neurological: Denies: Headache, Weakness, Numbness Physical Exam Vital Signs/Narrative: Vital Signs Temp Pulse Resp BP Pulse Ox 11/17/19 06:52 98.6 F 95 16 142/93 H 99 Inital Vital Signs reviewed: Yes General: Well nourished, Well developed, No Acute Distress Head: Normocephalic, Atraumatic Eyes: Perrl, EOMI ENT: Moist mucous membranes, No rhinorrhea Neck: Supple, Nontender Cardiovascular: Regular rate, Regular rhythm, No murmurs. Negative for: Tachycardia Respiratory: No distress, CTA bilaterally, Chest nontender Abdomen: Soft, Nontender, Nondistended, Hyperactive bowel sounds Back: Nontender, Normal Inspection Extremities: Nontender, No edema Skin: Normal color, No rash Neurological: Alert, Oriented x3, Cranial nerves II-XII grossly intact, Normal Strength, Normal Sensation, Normal Gait Psychological: Normal affect, Normal Mood Diagnostic/Tx/Re-eval - Medical Decision Making Patient was given a liter of IV isotonic fluid, Phenergan, he feels better and is able to tolerate fluids. He states he was at urgent care yesterday and was given a prescription for Zofran for the same thing, he has yet to fill it and plans to. Also given a Rx for prn Bentyl. He was sent here from work and is asking for a work note which was also provided. ED Disposition - Plan for ED Patient: Disposition: Home or Assisted Living Diagnosis: Viral gastroenteritis, Mild dehydration Instructions: GASTROENTERITIS, Viral (6y-Adult) Prescriptions: Dicyclomine HCl [Bentyl] 20 mg PO Q6H PRN #16 cap PRN Reason: abdominal cramping Prescription Printed Referrals: Estuardo Santos MD [STAFF PHYSICIAN] - As Needed (for primary care)
[2019-11-17] MEDS: 0.9% Normal Saline 1,000 ML 999 ML IV (07:37)
[2019-11-17] MEDS: proMETHazine 25 MG/ML Syringe 12.5 MG IV (07:37)
[2019-11-17 08:37] VITALS: BP 108/74; PULSE 62; RESP 15; O2SAT 98
== END 2019-11-17 08:38 | disposition home or self-care (01) ==
LOC: ED 07:43
PROVIDERS: Emergency Provider Emergency Medicine
DX: A08.4 Viral intestinal infection, unspecified (principal); E86.0 Dehydration; F17.200 Nicotine dependence, unspecified, uncomplicated; Z88.0 Allergy status to penicillin
CPT/HCPCS: 96361; 96374; 99284; J7030; A4216

== ENCOUNTER 2019-11-29 19:35 | Emergency (ER) | payer MEDICAID, SELFPAY ==
[2019-11-29 19:35] VITALS: BP 158/69; PULSE 117; RESP 20; TEMP 37.2; O2SAT 100; BMI 24.4
--- NOTE | 2019-11-29 19:40 | RAD_ITS ---
STUDY: X-RAY - RIGHT ANKLE REASON FOR EXAM: Male, 24 years old. Pain TECHNIQUE: 3 view(s) of the ankle. COMPARISON: X-ray right ankle September 08, 2019 FINDINGS: Ankle soft tissue swelling is present, greatest at the lateral aspect. There is mildly increased fibulotalar space. There is no evidence of acute fracture or dislocation. There are no significant degenerative changes. There are no radiodense foreign bodies. RAD/Ankle min 3 Views IMPRESSION: No acute fracture. Ankle soft tissue swelling, greatest at the lateral aspect. If clinical concern for ligamentous injury, consider MRI assessment. Electronically Signed: Sin Martines, at 20:03 EST Tel , Service support ,
--- NOTE | 2019-11-29 20:24 | ED.DEP ---
ED Disposition - Plan for ED Patient: Instructions: Sprain, Ankle, with X-Ray Prescriptions: Naproxen [Naprosyn] 500 mg PO BID PRN #20 tablet Referrals: Care Physician,No Primary [Primary Care Provider] -
--- NOTE | 2019-11-29 20:25 | ED.VISSUMM ---
- ER Visit Summary Date of Service: 11/29/19 Chief Complaint: Right ankle injury History of Present Illness: The patient is a 24 M presenting with right ankle injury. Patient was playing basketball and came down on his right ankle wrong. He has had painful ambulation since. He denies other injuries. Physical Examination: Vitals are stable. Patient is afebrile. Alert no acute distress. HEENT exam is unremarkable. Neck is nontender Lungs are clear and equal bilaterally. Heart is regular rate and rhythm. Extremities right lateral ankle tenderness and swelling. No Achilles tendon tenderness. No fifth metatarsal tenderness. No proximal fibula tenderness. Skin is warm and dry. No focal neurologic deficit. Remainder of exam is unremarkable. Emergency Department Course and Treatment: Right ankle x-ray shows no acute fracture. Ankle soft tissue swelling, greatest at the lateral aspect. If clinical concern for ligamentous injury, consider MRI assessment. Patient is advised to ice and elevate. He was given Griffin x1 in the ED and a prescription for Naprosyn. He was given a boot orthosis. Advised to follow-up with primary care physician. Advised return to ED for worsening complaints. Disposition: Discharge home Impression: Right ankle sprain This note was generated with [employer] dictation software. It may contain incorrect words, spelling, and punctuation that were not noted in review of the chart prior to signing ED Disposition - Plan for ED Patient: Instructions: Sprain, Ankle, with X-Ray Prescriptions: Naproxen [Naprosyn] 500 mg PO BID PRN #20 tab Prescription Printed Referrals: Care Physician,No Primary [Primary Care Provider] -
[2019-11-29] MEDS: HYDROcodone Bitartrate/Apap 5/325 Tablet PO (20:31)
[2019-11-29 20:54] VITALS: PULSE 80; RESP 16; O2SAT 98
== END 2019-11-29 21:00 | disposition home or self-care (01) ==
LOC: ED 20:35
PROVIDERS: Emergency Provider Emergency Medicine
DX: S93.401A Sprain of unspecified ligament of right ankle, initial encounter (principal); W19.XXXA Unspecified fall, initial encounter; Y93.67 Activity, basketball; Y92.310 Basketball court as the place of occurrence of the external cause; Y99.9 Unspecified external cause status; Z72.0 Tobacco use
CPT/HCPCS: 73610; 99283; A4216

== ENCOUNTER 2020-07-01 21:19 | Emergency (ER) | payer MEDICAID, SELFPAY ==
[2020-07-01 21:19] VITALS: BP 154/105; PULSE 91; RESP 16; TEMP 36.3
[2020-07-01 21:20] VITALS: BP 154/105; PULSE 91; RESP 16; TEMP 36.3; BMI 24.0
--- NOTE | 2020-07-01 21:30 | ED.VIS.GEN ---
History of Present Illness Chief Complaint: Ear Problem Informant: Patient Onset: Today, Hours Context: Sudden Onset Timing: Continuous Quality: Pain, muffled hearing, drainage Location: Left Current Severity: Mild Maximum Severity: Moderate Worsened by: Mother putting something in his ear for wax removal Relieved by: Nothing Associated Symptoms: No constitutional symptoms Narrative: Patient is 25-year-old male who presents because of ear pain. His mother put some type of liquid to remove the wax. He states his pain got worse. He now reports drainage from the ear. He states his hearing is muffled. He does have ringing in his ears and feels that his balance is off. He denies fever, chills night sweats. He does report headache. He denies ocular or visual symptoms. Nuys trouble with speech or swallowing. He denies cough or shortness of breath. He is on no anticoagulants. Prior similar symptoms: No Recent Illness/Hospitalization: No - Past Medical History (1) No significant past medical history Status: Acute Past Medical History - Allergies and Home Meds Allergies/Adverse Reactions: Allergies amoxicillin [Amoxicillin] Allergy (Verified 11/29/19 20:56) Hives bee venom protein (honey bee) Allergy (Verified 11/29/19 20:56) Angioedema Penicillins Allergy (Verified 11/29/19 20:56) Hives Primary Care Physician: Care Physician,No Primary [Primary Care Provider] - Prior records reviewed: Yes Surgical History: no surgical history Lives: Spouse/ Significant Other Smoking Status: Current every day smoker Alcohol: Occasional Drugs: None Review of Systems General: Denies: Chills, Fever, Malaise, Subjective Eyes: Denies: Visual changes - right, Blurred Vision - bilaterally ENT: Reports: Left ear pain, - - Please read HPI. Denies: Rhinorrhea, Sore throat Cardiovascular: Denies: Chest pain, Palpitations Respiratory: Denies: Dyspnea, Cough, Dyspnea on exertion Gastrointestinal: Denies: Nausea, Vomiting Musculoskeletal: Denies: Myalgias, Arthralgias, Neck pain, Back pain Neurological: Reports: Headache. Denies: Weakness, Parasthesia, Numbness, -, - Hematologic: Denies: Easy bruising, Easy bleeding Allergy: Denies: Uticaria Physical Exam Vital Signs/Narrative: Vital Signs Temp Pulse Resp BP 07/01/20 21:20 97.3 F L 91 16 154/105 H 09/05/20 21:19 97.3 F L 91 16 154/105 H Inital Vital Signs reviewed: Yes ENT: Moist mucous membranes, No rhinorrhea. Negative for: TM's clear - Left TM has perforated. There is bloody purulent drainage noted in the left external auditory canal., Dry mucous membranes, Nasal congestion Neck: Supple, Nontender, No lymphadenopathy, No JVD Cardiovascular: Regular rate, Regular rhythm, No murmurs, Normal S1, Normal S2 Respiratory: No distress, CTA bilaterally, Chest nontender Skin: Normal color, No rash Neurological: Alert, Oriented x3, Cranial nerves II-XII grossly intact, Normal Strength, Normal Sensation Psychological: Normal affect, Normal Mood Diagnostic/Tx/Re-eval - Medical Decision Making Reports allergy to penicillin with hives and swelling. Will treat with doxycycline. Patient has a perforated left TM due to otitis media. Patient was discharged to home with appropriate home-going instructions and antibiotics. ED Disposition - Plan for ED Patient: Disposition: Home or Assisted Living Diagnosis: Rupture of tympanic membrane with acute suppurative otitis media Instructions: ED Rupture Eardrum Infec Prescriptions: Doxycycline 100 mg PO BID #20 cap Transmission Status: Pending to [id number] Referrals: Care Physician,No Primary [Primary Care Provider] - Doctor,Your [STAFF PHYSICIAN] - 3-5 Days if not improving Additional Instructions: Should follow-up with your primary care doctor. The name of your doctor is located on your insurance card issued to you from [facility].
[2020-07-01] MEDS: Doxycycline 100 MG CAPSULE PO (21:37)
[2020-07-01 21:39] VITALS: RESP 16
== END 2020-07-01 21:46 | disposition home or self-care (01) ==
LOC: ED 21:40
PROVIDERS: Emergency Provider Emergency Medicine
DX: H66.019 Acute suppurative otitis media with spontaneous rupture of ear drum, unspecified ear (principal); F17.200 Nicotine dependence, unspecified, uncomplicated; Z88.0 Allergy status to penicillin
CPT/HCPCS: 99283

== ENCOUNTER 2020-11-19 22:35 | Emergency (ER) | payer MEDICAID, SELFPAY ==
[2020-11-19 22:36] VITALS: BP 154/99; PULSE 105; RESP 16; TEMP 36.3; O2SAT 97; BMI 27.1
--- NOTE | 2020-11-19 22:49 | ED.DCSUM_ITS ---
History of Present Illness Chief Complaint: GI Bleed Informant: Patient Narrative: Patient presents with generalized fatigue. He stated he got over coronavirus a few weeks ago. He has had generalized fatigue. He has mild muscle aches. He felt nauseous last night and had a forceful emesis. He then had another emesis with some blood streaks after that. Thinners or chronic medical problems. He stated he cleared his throat tonight and noticed some blood-tinged sputum. He has not been coughing up blood. No history of pulmonary embolism. 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 No home treatment. Current severity is mild. - Past Medical History (1) Concussion with brief LOC Status: Acute (2) No significant past medical history Status: Acute Past Medical History - Allergies and Home Meds Allergies/Adverse Reactions: Allergies amoxicillin [Amoxicillin] Allergy (Verified 11/19/20 22:39) Hives bee venom protein (honey bee) Allergy (Verified 11/19/20 22:39) Angioedema Penicillins Allergy (Verified 11/19/20 22:39) Hives Primary Care Physician: Care Physician,No Primary [Primary Care Provider] - Prior records reviewed: Yes Past Medical History: - - Problem list Surgical History: no surgical history Smoking Status: Current every day smoker Alcohol: None Drugs: None Review of Systems General: Denies: Chills, Fever, Sweats Eyes: Denies: Visual changes - bilaterally, Diplopia ENT: Denies: Rhinorrhea, Sore throat Cardiovascular: Denies: Chest pain, Palpitations Respiratory: Denies: Dyspnea, Cough, Dyspnea on exertion Gastrointestinal: Reports: Nausea, Vomiting. Denies: Abdominal pain, Diarrhea, Melena, Hematochezia Genitourinary: Denies: Dysuria, Hematuria, Frequency Musculoskeletal: Reports: Myalgias. Denies: Back pain, Extremity Pain Skin: Denies: Rash, Wounds Neurological: Denies: Headache, Weakness, Numbness Physical Exam Vital Signs/Narrative: Vital Signs Temp Pulse Resp BP Pulse Ox 11/19/20 22:36 97.3 F L 105 H 16 154/99 H 97 General: Well nourished, Well developed, No Acute Distress Head: Normocephalic, Atraumatic Eyes: Perrl, EOMI ENT: Moist mucous membranes, No rhinorrhea Neck: Supple, Nontender Cardiovascular: Regular rate, Regular rhythm, No murmurs Respiratory: No distress, CTA bilaterally, Chest nontender Abdomen: Soft, Nontender, Nondistended, Normal bowel sounds Back: Nontender, Normal Inspection Extremities: Nontender, No edema Skin: Normal color, No rash Neurological: Alert, Oriented x3, Cranial nerves II-XII grossly intact, Normal Strength, Normal Sensation Psychological: Normal affect, Normal Mood Diagnostic/Tx/Re-eval - Medical Decision Making Patient resting comfortably. IV established and given Toradol Zofran IV fluids. Lab work obtained. Patient felt better after treatment. Coags negative. Electrolytes unremarkable. CBC shows nothing acute. Patient felt like he could go home after treatment. Will be given Zofran for home. No further vomiting. I suspect he may have a small Kiana-Wilde tear that resolved. It might be just abrasions from hard vomiting. I do not suspect he has an emergent cause of his symptoms. We will follow-up as an outpatient ED Disposition - Plan for ED Patient: Disposition: Home or Assisted Living Diagnosis: Weakness, Kiana-Wilde tear Instructions: ED Weakness (Uncertain Cause), ED Upper GI Bleeding (Stable) Prescriptions: Ondansetron [Zofran Odt] 8 mg PO Q8H PRN PRN #20 tab PRN Reason: Nausea Transmission Status: Pending to [facility]/pharmacy #[id number] Referrals: Care Physician,No Primary [Primary Care Provider] -
[2020-11-19] MEDS: Ondansetron 4 MG/2 ML Vial IV (23:25)
[2020-11-19] MEDS: Ketorolac 15 MG/ML Vial IV (23:25)
[2020-11-19] MEDS: 0.9% Normal Saline 1,000 ML 1000 ML IV (23:26)
[2020-11-19 23:35] LABS: International Normalized Ratio 1.1; Prothrombin Time (Protime)PT. 13.6 SECONDS (11.7-14.9)
[2020-11-19 23:36] LABS: Partial Thromboplast Time 24.4 Seconds (24.1-36.2)
[2020-11-19 23:38] LABS: Anion Gap 5 (5-15); BUN 17 mg/dL (7-18); BUN/Creat Ratio 15.6 RATIO (10-20); Calcium,Total 8.4 mg/dL (8.5-10.1); Chloride 104 mmol/L (98-107); Creatinine, Serum 1.09 mg/dL (0.70-1.30); EST Glomerular Filtration Rate 87 mL/min (>60); Est Glom Filt Rate - Afr Amer 106 mL/min (>60); Estimated Creatinine Clearance 113.71 ml/min; Glucose 83 mg/dL (74-106); Potassium 3.5 mmol/L (3.5-5.1); Sodium Level 139 mmol/L (136-145)
[2020-11-19 23:39] LABS: Absolute Lymphocyte Count 2.16 X10^3/uL (0.83-4.51); Absolute Neutrophil Count 3.5 X10^3/uL (2.0-7.7); Basophil# 0.03 X10^3/uL; Basophil% 0.5 % (0-1); Eosinophil# 0.08 X10^3/uL; Eosinophils% 1.2 % (0-5); Lymphocyte # 2.16 X10^3/ul (4.0); Lymphocyte % 32.5 % (19-41); Mean Corp Hgb Conc 34.8 g/dL (32-36); Mean Corpuscular Hgb 31.9 pg (27.0-32.0); Mean Corpuscular Volume 91.8 fL (80-94); Mean Platelet Vol. 9.5 fl (6.2-12.0); Monocyte# 0.76 X10^3/uL; Monocyte% 11.4 % (0-10); NRBC Flagged by Analyzer 0 % (0-5); Neutrophil # 3.53 X10^3/uL (2.7-7.7); Platelet Count 217 K/mm3 (150-450); RBC Distribution Width CV 11.7 % (11.6-14.6); RBC Distribution Width SD 39.7 fl (35.1-43.9); Red Blood Count 5.01 M/mm3 (4.6-6.2); White Blood Count 6.7 K/mm3 (4.4-11.0)
[2020-11-20 01:36] VITALS: BP 111/72; PULSE 61; RESP 16
== END 2020-11-20 02:09 | disposition home or self-care (01) ==
PROVIDERS: Emergency Provider Emergency Medicine
DX: K22.6 Gastro-esophageal laceration-hemorrhage syndrome (principal); F17.200 Nicotine dependence, unspecified, uncomplicated; Z88.0 Allergy status to penicillin; R53.1 Weakness
CPT/HCPCS: 80048; 85025; 85610; 85730; 96361; 96374; 96375; 99283; J7030; A4216; J2405

== ENCOUNTER 2021-01-01 12:57 | Emergency (ER) | payer MEDICAID, SELFPAY ==
[2021-01-01 12:58] VITALS: BP 156/103; PULSE 101; RESP 16; TEMP 36.6; O2SAT 95; BMI 24.3
--- NOTE | 2021-01-01 13:05 | RAD_ITS ---
STUDY: X-RAY - RIGHT CLAVICLE REASON FOR EXAM: Male, 25 years old. fall TECHNIQUE: 2 view(s) of the clavicle. COMPARISON: None. FINDINGS: Normal clavicle. Normal acromioclavicular articulation. Normal visualized sternoclavicular articulation. Normal visualized pulmonary apex. RAD/Clavicle IMPRESSION: Normal x-ray examination of the clavicle. Electronically Signed: Dimas Hong MD at 14:24 EST Tel , Service support ,
--- NOTE | 2021-01-01 13:05 | RAD_ITS ---
STUDY: X-RAY - RIGHT SHOULDER REASON FOR EXAM: Male, 25 years old. fall TECHNIQUE: 4 view(s) of the shoulder. COMPARISON: None. FINDINGS: Normal glenohumeral articulation. Normal acromioclavicular joint. Normal acromion. Normal humeral head and visualized proximal humerus. The soft tissue structures are unremarkable. Normal visualized pulmonary apex. RAD/Shoulder min 2 Views IMPRESSION: Normal x-ray examination of the shoulder. Electronically Signed: Dimas Hong MD at 14:16 EST Tel , Service support ,
--- NOTE | 2021-01-01 13:09 | ED.VIS.GEN ---
History of Present Illness Chief Complaint: Fall Informant: Patient Onset: Days Context: Sudden Onset Timing: Continuous Current Severity: Moderate Maximum Severity: Moderate Narrative: The patient is a healthy 25-year-old male who is right-hand dominant the presents to the emergency department with right shoulder and chest injury. Patient states that he was with friends on Friday night. He states they were drinking. He was chasing after one of his friends, tripped and fell. He landed directly on his upper right shoulder. He states since then, has had a lot of pain and difficulty moving because of the pain. He denies any numbness or weakness in the hand. He did not strike his head. He denies loss of consciousness. Prior similar symptoms: No Recent Illness/Hospitalization: No Past Medical History - Allergies and Home Meds Allergies/Adverse Reactions: Allergies amoxicillin [Amoxicillin] Allergy (Verified 01/01/21 12:58) Hives bee venom protein (honey bee) Allergy (Verified 01/01/21 12:58) Angioedema Penicillins Allergy (Verified 01/01/21 12:58) Hives Primary Care Physician: Care Physician,No Primary [Primary Care Provider] - Prior records reviewed: Yes Past Medical History: None Surgical History: no surgical history Smoking Status: Current some day smoker Review of Systems General: Denies: Chills, Fever, Sweats Eyes: Denies: Visual changes - bilaterally, Diplopia ENT: Denies: Rhinorrhea, Sore throat Cardiovascular: Denies: Chest pain, Palpitations Respiratory: Denies: Dyspnea, Cough, Dyspnea on exertion Gastrointestinal: Denies: Abdominal pain, Nausea, Vomiting, Diarrhea, Melena, Hematochezia Genitourinary: Denies: Dysuria, Hematuria, Frequency Musculoskeletal: Denies: Back pain, Extremity Pain Skin: Denies: Rash, Wounds Neurological: Denies: Headache, Weakness, Numbness Physical Exam Vital Signs/Narrative: Vital Signs Temp Pulse Resp BP Pulse Ox 01/01/21 12:58 97.8 F 101 H 16 156/103 H 95 General: Well nourished, Well developed, No Acute Distress Head: Normocephalic, Atraumatic Eyes: Perrl, EOMI ENT: Moist mucous membranes, No rhinorrhea Neck: Supple, Nontender Cardiovascular: Regular rate, Regular rhythm, No murmurs Respiratory: No distress, CTA bilaterally, Chest nontender Abdomen: Soft, Nontender, Nondistended, Normal bowel sounds Back: Nontender, Normal Inspection Extremities: No edema, Tenderness - Patient is tender over the clavicle into the AC joint. There is no obvious deformity. His pulses are normal. His sensation is preserved. Skin: Normal color, No rash Neurological: Alert, Oriented x3, Cranial nerves II-XII grossly intact, Normal Strength, Normal Sensation Psychological: Normal affect, Normal Mood Diagnostic/Tx/Re-eval - Medical Decision Making Plain films were obtained of the chest, clavicle, and shoulder. These were reviewed by myself. There is no evidence of rib fracture, pneumothorax, clavicular fracture, shoulder dislocation, or shoulder fracture. Clinically, I do feel the patient likely has an AC joint sprain. I am going to treat him conservatively with a sling and range of motion exercises. He will be given outpatient orthopedic follow-up. Impression 1. AC joint sprain-right ED Disposition - Plan for ED Patient: Instructions: ED Sprain AC Joint Prescriptions: cycloBENZAPRine HCl [Flexeril] 10 mg PO TID PRN #20 tab PRN Reason: Muscle Spasm Prescription Printed Naproxen [Naprosyn] 500 mg PO BID #14 tab Prescription Printed Referrals: Care Physician,No Primary [Primary Care Provider] -
[2021-01-01] MEDS: HYDROcodone Bitartrate/Apap 5/325 Tablet PO (13:10)
--- NOTE | 2021-01-01 13:10 | RAD_ITS ---
STUDY: X-RAY CHEST REASON FOR EXAM: Male, 25 years old. fall TECHNIQUE: Frontal and lateral views of the chest. COMPARISON: None. FINDINGS: The lungs are clear and expanded. There is no demonstrated pleural abnormality. Normal size heart. Normal mediastinum and josiane. Normal visualized pulmonary arteries. Normal visualized aortic arch and descending thoracic aorta. Normal visualized thoracic spine. Normal visualized ribs, clavicles, and shoulders. There is no demonstrated abnormality of the visualized soft tissue structures of the upper abdomen. RAD/Chest PA and Lateral IMPRESSION: Normal x-ray examination of the chest. Electronically Signed: Dimas Hong MD at 14:09 EST Tel , Service support ,
== END 2021-01-01 14:38 | disposition home or self-care (01) ==
LOC: ED 14:09
PROVIDERS: Emergency Provider Emergency Medicine
DX: S43.51XA Sprain of right acromioclavicular joint, initial encounter (principal); W01.0XXA Fall on same level from slipping, tripping and stumbling without subsequent striking against object, initial encounter; F17.210 Nicotine dependence, cigarettes, uncomplicated
CPT/HCPCS: 71046; 73000; 73030; 99283

== ENCOUNTER 2021-06-01 21:33 | Emergency (ER) | payer MEDICAID, SELFPAY ==
[2021-06-01 21:34] VITALS: BP 141/110; PULSE 133; RESP 16; TEMP 37.6; O2SAT 97; BMI 27.4
--- NOTE | 2021-06-01 22:14 | EX.ED.VIS.UR ---
HPI HPI - URI History of Present Illness Chief Complaint: Sore Throat Informant: patient Onset/Context/Timing Onset: Today Context: Gradual Onset Timing: Continuous Current Severity: Mild Maximum Severity: Mild Worsened by: Not Worsened By Swallowing, Eating Solids and Drinking Liquids Associated Symptoms Associated Symptoms: Positive for Nonproductive cough; Negative for Nasal Congestion, Headache, Sinus Pressure, Myalgias, Nausea, Vomiting, Diarrhea, Shortness of Breath, Chest Pain, Hemoptysis and Productive Cough Narrative Narrative: 25-year-old male history of bipolar disorder. States has had a sore throat all day. Mild nonproductive cough. Denies fever or chills. Able to swallow. States he is not had a Covid shot but he had Covid with a positive test in October. He denies any shortness of breath. Prior similar symptoms: Yes Recent Illness/Hospitalization: No ROS ROS ED ROS Narrative Sore throat and cough. Review of Systems ROS Unobtainable: Denies due to encephalopathy Constitutional Constitutional ED: Denies chills or fever(s) Eyes Eyes: Denies change in vision ENT ENT ED: Reports sore throat; Denies ear pain or rhinorrhea Cardiovascular Cardiovascular: Denies chest pain or palpitations Respiratory/Chest Respiratory/Chest: Reports cough; Denies dyspnea or sputum Gastrointestinal Gastrointestinal: Denies abdominal pain, diarrhea, nausea or vomiting Genitourinary Genitourinary ED: Denies dysuria Musculoskeletal Musculoskeletal: Denies myalgias Integumentary Denies rash Neurologic Neurologic: Denies headache(s) Psychiatric Psychiatric: Denies depression Endocrine Endocrinology: Denies polyuria Hematologic/Lymphatic Hematologic/Lymphatic: Denies easy bruising Allergic/Immunologic Allergic/Immunologic ED: Denies urticaria PFSH PFSH Home Medications gabapentin 300 mg PO TID 07/01/20 [History Last Taken Unknown] Quetiapine Fumarate [Seroquel Xr] 50 mg PO QHS 11/19/20 [History Last Taken Unknown] ondansetron 8 mg PO Q8H PRN PRN #20 tab 11/20/20 [Rx Last Taken Unknown] cyclobenzaprine 10 mg PO TID PRN #20 tab 01/01/21 [Rx Last Taken Unknown] naproxen 500 mg PO BID #14 tab 01/01/21 [Rx Last Taken Unknown] Allergy/AdvReac Type Severity Reaction Status Date / Time amoxicillin [Amoxicillin] Allergy Hives Verified 06/01/21 21:36 bee venom protein (honey bee) Allergy Angioedema Verified 06/01/21 21:36 Penicillins Allergy Hives Verified 06/01/21 21:36 Social History Smoking Status: Current every day smoker EXAM Physical Exam Narrative Exam Narrative: Young male no acute distress. Vital signs stable afebrile. Pulse ox 97%. Temperature 98.7. Patient does not look septic toxic. H EENT exam TMs are normal bilaterally. Posterior pharynx moist and pink. He has enlarged tonsils but there is no exudate. There is no erythema. There is no peritonsillar abscess. He has no trouble swallowing or breathing. No drooling. Floor of his mouth is unremarkable. Neck nontender no lymphadenopathy. Lungs clear to auscultation bilaterally. Heart regular rhythm rate about 110 no murmur. Abdomen soft nontender. Moving all 4 extremities. Skin unremarkable. No rashes. Back unremarkable. Neurologically is awake and alert. Const Vital Signs: 06/01/21 21:34 Temperature 99.7 F H Temperature Source Temporal Pulse Rate 133 H Respiratory Rate 16 Blood Pressure 141/110 H Blood Pressure Mean 120 Pulse Ox 97 Oxygen Delivery Method Room Air General Appearance ED: Negative for pallor HEENT Reports TM's clear and moist mucous membranes normocephalic and atraumatic Face and Sinus: Negative for sinus tenderness or facial tenderness External Ear: external ears normal, mastoids normal and no preauricular adenopathy External Auditory Canal: EAC's normal Tympanic Membrane ED: Yes TM's clear Eyes PERRL and EOMs intact bilaterally Neck no lymphadenopathy, supple, no meningeal signs and no JVD General: Negative for anterior neck swelling or lymphadenopathy Resp normal respiratory effort and clear to auscultation bilaterally Cardio S1 normal heart sound, S2 normal heart sound and no murmurs Rate: tachycardic Rhythm: regular rhythm GI non-tender, non-distended and no masses Auscultation: normoactive bowel sounds Palpation: soft; Negative for tender or guarding Back/Spine no CVA tenderness Extremity normal to inspection and full ROM General Extremety ED: Negative for cyanosis or tenderness General Extremity: Negative for cyanosis Neuro oriented x3 Sensorium / Orientation: alert, oriented to person, oriented to place and oriented to time Motor Exam: strength 5/5 throughout Psych mental status grossly normal Skin General Skin Exam: Negative for jaundice or pallor Lesions: no lesions Rashes: no rashes MDM MDM MDM Narrative Medical decision making narrative: Young male sore throat. Clinically appears to be a viral syndrome. Does not look like strep. Discussed with patient he did not want a strep test sent. Will be treated for his symptoms with salt water gargling. Tylenol and Motrin. Throat lozenges. Follow-up if not improving. Discharge Plan Triage Chief Complaint: Sore Throat ED Provider: Keith Nelson Dx/Rx/DC Orders Clinical Impression: Acute viral pharyngitis Instructions: ED Pharyngitis, Viral Prescriptions: No Action gabapentin 300 MG capsule 300 mg PO TID RF: 0 Quetiapine Fumarate [Seroquel Xr] 50 MG Tab.Sr.24h 50 mg PO QHS RF: 0 ondansetron 4 MG tablet 8 mg PO Q8H PRN PRN (Reason: Nausea) Qty: 20 RF: 0 cyclobenzaprine 10 MG tablet 10 mg PO TID PRN (Reason: Muscle Spasm) Qty: 20 RF: 0 naproxen 500 MG tablet 500 mg PO BID Qty: 14 RF: 0 Primary Care Provider: Care Physician,No Primary Referrals: Ta Gustafson MD [NON-STAFF] - 3-5 Days if not improving Care Physician,No Primary [Primary Care Provider] - Activity Restrictions/Additional Instructions: Plenty of fluids and rest. Tylenol and Motrin for pain. Warm salt water gargling and throat lozenges. Follow-up if not improving. Disposition Disposition: Home, Self Care
== END 2021-06-01 22:26 | disposition home or self-care (01) ==
PROVIDERS: Emergency Provider Emergency Medicine
DX: J02.8 Acute pharyngitis due to other specified organisms (principal); B97.89 Other viral agents as the cause of diseases classified elsewhere; F17.200 Nicotine dependence, unspecified, uncomplicated; F31.9 Bipolar disorder, unspecified; Z79.1 Long term (current) use of non-steroidal anti-inflammatories (NSAID)
CPT/HCPCS: 99282

== ENCOUNTER 2021-07-03 13:49 | Emergency (ER) | payer MEDICAID, SELFPAY ==
[2021-07-03 13:49] VITALS: BP 134/97; PULSE 91; RESP 18; TEMP 37.1; O2SAT 96; BMI 26.4
--- NOTE | 2021-07-03 15:34 | EX.ED.DYSGE1 ---
HPI History of Present Illness Chief Complaint: Nausea/Vomiting/Diarrhea Informant: patient Narrative Narrative: Patient is a 26-year-old male presenting with 1 day of nausea, vomiting and diarrhea. He states he went to work and vomited. He was sent home and is states he came in because he needs a work note. He has been having some mild abdominal pain. He has been more tired than normal. Denies any fever or chills. He denies any chest pain or shortness of breath. Does have some body aches. States he has previously had Covid and does not want be tested for it at this time. Patient denies any recent alcohol use. He thinks he just ate something bad. No other complaints at this time. PFSH PFSH Home Medications gabapentin 800 mg PO BID 07/01/20 [History Last Taken Unknown] Quetiapine Fumarate [Seroquel Xr] 50 mg PO QHS 11/19/20 [History Last Taken Unknown] famotidine [Pepcid] 20 mg PO DAILY #14 tab 07/03/21 [Rx Last Taken Unknown] ondansetron HCl [Zofran] 4 mg PO Q8H PRN #14 tab 07/03/21 [Rx Last Taken Unknown] Allergy/AdvReac Type Severity Reaction Status Date / Time amoxicillin [Amoxicillin] Allergy Hives Verified 07/03/21 13:51 bee venom protein (honey bee) Allergy Angioedema Verified 07/03/21 13:51 Penicillins Allergy Hives Verified 07/03/21 13:51 Social History Smoking Status: Current every day smoker tobacco type: cigarettes ROS ROS ED Constitutional Constitutional ED: Reports other Details: Fatigue ; Denies chills, fever(s) or malaise Eyes Eyes: Denies blurry vision or loss of vision ENT ENT ED: Denies rhinorrhea or sore throat Cardiovascular Cardiovascular: Denies chest pain or dizziness Respiratory/Chest Respiratory/Chest: Denies cough or dyspnea Gastrointestinal Gastrointestinal: Reports abdominal pain, diarrhea, nausea and vomiting Genitourinary Genitourinary ED: Denies dysuria or hematuria Musculoskeletal Musculoskeletal: Denies arthralgias or myalgias Integumentary Denies rash or wounds Neurologic Neurologic: Denies focal weakness, headache(s) or weakness Psychiatric Psychiatric: Denies anxiety or behavioral changes EXAM Physical Exam Const Vital Signs: 07/03/21 13:49 Temperature 98.8 F Temperature Source Temporal Pulse Rate 91 Respiratory Rate 18 Blood Pressure 134/97 H Blood Pressure Mean 109 Pulse Ox 96 Positive well nourished, well developed and no apparent distress General Appearance ED: well developed HEENT Reports normocephalic atraumatic Nose: no nasal discharge External Ear: external ears normal Mouth ED: Yes moist mucous membranes normal Eyes PERRL and EOMs intact bilaterally Neck full ROM and no meningeal signs Chest Wall inspection of chest normal Resp normal respiratory effort and normal air movement Cardio regular rate and regular rhythm GI normal to inspection, nondistended, normoactive bowel sounds, non-tender and non-distended Extremity normal to inspection and full ROM Neuro oriented x3 and no focal motor deficits Sensorium / Orientation: alert Psych mental status grossly normal and thought process normal Skin no rashes or lesions noted and no wounds MDM MDM MDM Narrative Medical decision making narrative: Patient evaluated for nausea, vomiting and diarrhea for 1 day. He is currently well-appearing with a soft abdominal exam. No pain at this time. Has been able to tolerate fluids. I do not think blood work is indicated at this time especially as he has normal lab work. Imaging is not indicated. Is treated symptomatically with Zofran and given a work note for today and tomorrow. Instructed to return to emergency room if he develops any worsening symptoms. Given a prescription for Pepcid and Zofran. Patient is counseled on signs and symptoms requiring return to the emergency room. Patient verbalizes agreement and understand this plan. Patient discharged home in stable and improved condition. Discharge Plan Triage Chief Complaint: Nausea/Vomiting/Diarrhea ED Provider: Norma Nieto Dx/Rx/DC Orders Clinical Impression: Nausea vomiting and diarrhea Instructions: ED Vomiting and Diarrhea ... Prescriptions: New ondansetron HCl [Zofran] 4 mg tablet 4 mg PO Q8H PRN (Reason: nausea and vomiting) Qty: 14 RF: 0 famotidine [Pepcid] 20 mg tablet 20 mg PO DAILY Qty: 14 RF: 0 No Action gabapentin 300 MG capsule 800 mg PO BID RF: 0 Quetiapine Fumarate [Seroquel Xr] 50 MG Tab.Sr.24h 50 mg PO QHS RF: 0 Primary Care Provider: Care Physician,No Primary Referrals: Afua Barrett MD [STAFF PHYSICIAN] - Care Physician,No Primary [Primary Care Provider] - Activity Restrictions/Additional Instructions: If you develop fever more flulike symptoms please get tested for Covid. Take [id number] Pepto-Bismol as well as needed for symptoms. Return if you have any worsening symptoms or develop worsening abdominal pain. Disposition Disposition: Home, Self Care
[2021-07-03] MEDS: Ondansetron ODT 4 MG Tablet PO (15:41)
== END 2021-07-03 15:46 | disposition home or self-care (01) ==
PROVIDERS: Emergency Provider Emergency Medicine
DX: R11.2 Nausea with vomiting, unspecified (principal); R19.7 Diarrhea, unspecified; F17.210 Nicotine dependence, cigarettes, uncomplicated; Z79.899 Other long term (current) drug therapy
CPT/HCPCS: 99283

== ENCOUNTER 2022-11-04 15:08 | Emergency (ER) | payer MEDICAID, SELFPAY ==
[2022-11-04 15:09] VITALS: BP 152/105; PULSE 103; RESP 16; TEMP 36.5; O2SAT 99; BMI 29.9
--- NOTE | 2022-11-04 15:35 | RAD_ITS ---
STUDY: X-RAY - LEFT KNEE REASON FOR EXAM: Male, 27 years old. PAIN AND SWELLING TECHNIQUE: 4 view(s) of the knee. COMPARISON: February 01, 2015 FINDINGS: Normal visualized distal femur. Normal visualized proximal tibia and fibula. Normal proximal tibiofibular articulation. Normal medial femorotibial compartment. Normal lateral femorotibial compartment. Normal patellofemoral articulation. The soft tissue structures are unremarkable. RAD/Knee 4 or More Views IMPRESSION: Normal x-ray examination of the knee. Electronically Signed: Maykel Christianson MD at 17:42 EST ,
--- NOTE | 2022-11-04 18:23 | ED.RN ---
pt lwbs at 1800
== END 2022-11-04 18:00 | disposition left against medical advice (07) ==
LOC: ED 18:32
DX: M79.89 Other specified soft tissue disorders (principal); M25.562 Pain in left knee
CPT/HCPCS: 73562; 73564

== ENCOUNTER → 2022-12-14 | Outpatient (CLI) | payer MEDICAID, SELFPAY ==
--- NOTE | 2022-12-14 14:30 | MRI_ITS ---
STUDY: MRI LEFT KNEE REASON FOR EXAM: Male, 27 years old. Pain. TECHNIQUE: Standardized fat and water weighted pulse sequences were obtained in all 3 orthogonal planes. COMPARISON: X-ray November 04, 2022 FINDINGS: Normal medial meniscus. Normal hyaline cartilage of the medial femorotibial compartment. There is subchondral edema of the anterior medial femoral condyle, series 5 image 18/26. Normal medial tibial plateau. Normal medial collateral ligamentous complex (MCL). Normal distal semimembranosus, gracilis and semitendinosus tendons. Normal lateral meniscus. Normal hyaline cartilage of the lateral femorotibial compartment. There is mild marrow edema of the lateral femoral condyle series 7 image 16/34. Normal lateral tibial plateau Normal proximal tibiofibular articulation. Normal lateral collateral (fibular) ligament. Normal popliteus tendon. Normal biceps femoris tendon. Normal anterior cruciate ligament (ACL). Normal posterior cruciate ligament (PCL). Normal congruent patellofemoral articulation. Normal hyaline cartilage of the patellofemoral compartment. Normal medial and lateral patellar retinaculum. Normal quadriceps tendon. Normal patellar tendon. Normal Hoffa''s fat pad. There is a small volume joint effusion. The soft tissues are unremarkable. The otherwise visualized osseous structures are unremarkable. MRI/Lower Ext Joint Only (Routine) IMPRESSION: Stress injury/fracture versus contusion of the anterior medial femoral condyle and lateral femoral condyle. Joint effusion. No meniscal tear. Electronically Signed: Sloan Cochran MD at 14:01 EST ,
== END | disposition home or self-care (01) ==
LOC: MRI 14:30
PROVIDERS: Visit Provider Physician Assistant
DX: S83.92XA Sprain of unspecified site of left knee, initial encounter (principal); M23.92 Unspecified internal derangement of left knee
CPT/HCPCS: 73721

== ENCOUNTER 2023-03-05 10:57 | Emergency (ER) | payer MEDICAID, SELFPAY ==
[2023-03-05 10:58] VITALS: BP 140/102; PULSE 105; RESP 18; TEMP 36.6; O2SAT 100; BMI 28.8
--- NOTE | 2023-03-05 11:07 | EKG12_ITS ---
Test Reason : DIZZINESS Blood Pressure : / mmHG Vent. Rate : 091 BPM Atrial Rate : 091 BPM P-R Int : 146 ms QRS Dur : 088 ms QT Int : 378 ms P-R-T Axes : 028 005 013 degrees QTc Int : 464 ms Normal sinus rhythm Minimal voltage criteria for LVH, may be normal variant ( R in aVL ) Borderline ECG When compared with ECG of 08-AUG-2019 17:04, No significant change was found Confirmed by EMPERATRIZ SALAZAR, LAM ([id number]), editor city [id number] EDDY ([id number]) on 03/06/2023 9:50:55 AM Referred By: Confirmed By:JOSE MIGUEL AWAN MD
--- NOTE | 2023-03-05 11:09 | EDS_ITS ---
HPI History of Present Illness Chief Complaint: Dizziness Informant: patient Narrative Narrative: Patient presents with a sense of can of generalized weakness and just not feeling well at work today. He states he felt a little bit this way when he woke up but it got worse at work. He has no focal symptoms such as headache shortness of breath nausea vomiting muscle diarrhea fevers or chills. He does wonder if his blood pressure is elevated. He states he has been told for years that his blood pressure is up a little bit. 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 But those medicines did not work well for him. He has never tried new medicines. He does not know what medicine he was tried on originally. Patient is feeling better now. He would like a work note. Despite his med list here, he patient tells me he is not on any medicines at this time. Allergies are reviewed Patient does have family history of high blood pressure and some diabetes. He has never been diagnosed with diabetes. [facility] Medical History Strain of right hand Strain of right wrist Home Medications Quetiapine Fumarate [Seroquel Xr] 50 mg PO QHS 11/19/20 [History Last Taken Unknown] famotidine 20 mg tablet (Pepcid) 20 mg PO DAILY #14 tabs 07/03/21 [Rx Last Taken Unknown] ondansetron HCl 4 mg tablet (Zofran) 4 mg PO Q8H PRN nausea and vomiting #14 tabs 07/03/21 [Rx Last Taken Unknown] etodolac 300 mg capsule 300 mg PO Q8H #15 caps 11/06/22 [Rx Last Taken Unknown] cyclobenzaprine 5 mg tablet 5 mg PO QHS PRN muscle spasm #10 tabs 12/20/22 [Rx Last Taken Unknown] gabapentin 400 mg capsule ea PO 12/20/22 [History Last Taken Unknown] meloxicam 15 mg tablet 15 mg PO DAILY #21 tabs 12/20/22 [Rx Last Taken Unknown] amlodipine 5 mg tablet 5 mg PO DAILY #30 tabs 03/05/23 [Rx Last Taken Unknown] Allergy/AdvReac Type Severity Reaction Status Date / Time amoxicillin [Amoxicillin] Allergy Hives Verified 03/05/23 10:59 bee venom protein (honey bee) Allergy Angioedema Verified 03/05/23 10:59 Penicillins Allergy Hives Verified 03/05/23 10:59 Social History Smoking Status: Current every day smoker tobacco type: cigarettes ROS ROS ED Constitutional Constitutional ED: Denies chills, fever(s), subjective, sweats or weight loss Eyes Eyes: Denies change in vision ENT ENT ED: Denies rhinorrhea or sore throat Cardiovascular Cardiovascular: Denies chest pain, palpitations or racing heartbeat Respiratory/Chest Respiratory/Chest: Denies cough or dyspnea Gastrointestinal Gastrointestinal: Denies abdominal pain, diarrhea, nausea or vomiting Musculoskeletal Musculoskeletal: Denies myalgias Integumentary Denies rash Neurologic Neurologic: Denies headache(s), paresthesias or weakness Endocrine Endocrinology: Denies polydipsia or polyuria Hematologic/Lymphatic Hematologic/Lymphatic: Denies easy bleeding or easy bruising Allergic/Immunologic Allergic/Immunologic ED: Denies urticaria EXAM Physical Exam Narrative Exam Narrative: Patient is awake alert sitting comfortably in the bed and nontoxic. HEENT: Mucous membranes seem moist. No facial trauma. Tonsils are small mildly large but not red and there is no exudate. He has no pain in the area. Eyes show no icterus or injection Neck is supple. Lungs are clear bilaterally. He takes good deep breaths without any pain. His saturations are normal at 100% on room air. Heart rate is regular. He is seems have a rate closer to 90 when I listen. I hear no murmur. I hear no ectopy. There is no indication of irregularity on exam. Abdomen is soft nontender nondistended and no mass. Extremities show no tenderness edema pain with range of motion. Neurologically he is awake alert appropriate. Speech and understanding is normally. There is normal gait and balance. Normal strength and sensation. Skin shows no pallor or diaphoresis or rash. Const Vital Signs: 03/05/23 10:58 03/05/23 11:21 Temperature 98 F Temperature Source Temporal Pulse Rate 105 H Respiratory Rate 18 Respiratory Effort Normal Non-Labored Respiratory Pattern Normal Blood Pressure 140/102 H Blood Pressure Mean 114 Pulse Ox 100 Oxygen Delivery Method Room Air MDM MDM MDM Narrative Medical decision making narrative: Patient's initial blood pressure is up slightly here. We will recheck this. He states he has a history of blood pressure but is never really been on meds long-term. With his family history and generalized symptoms we will check blood work. CBC shows normal white count. Mild elevation in hemoglobin which could be a little bit of hemoconcentration but his electrolytes do not show significant dehydration. Electrolytes show no acute abnormalities. Glucose is normal at 100 Patient's symptoms feel better. He is eating and drinking here. Blood work shows no marked abnormalities. EKG shows no acute process. But patient does have blood pressure elevation. Although its not that high he states every time he gets it checked for a long time it is up. It is normally about 150/100. Since this really is chronic, he used to be on meds, I think it is appropriate we initiate therapy. But he needs to follow-up with his primary physician. I explained that this is a long-term management issue. Lab Data Attestation: I reviewed the patient's lab results. Labs: Laboratory Results - last 24 hr 03/05/23 03/05/23 11:15 11:15 WBC 5.8 RBC 5.39 Hgb 16.8 H Hct 48.4 MCV 89.8 MCH 31.2 MCHC 34.7 RDW Std Deviation 38.4 RDW Coeff of Apple 11.9 Plt Count 240 MPV 9.3 Immature Gran % (Auto) 0.300 Neut % (Auto) 54.1 Lymph % (Auto) 32.2 Meagher % (Auto) 10.4 H Eos % (Auto) 2.3 Baso % (Auto) 0.7 Absolute Neuts (auto) 3.1 Absolute Lymphs (auto) 1.86 Nucleated RBC % 0 Sodium 142 Potassium 4.0 Chloride 109 H Carbon Dioxide 28.0 Anion Gap 5 BUN 12 Creatinine 0.97 Estim Creat Clear Calc 125.56 Est GFR (MDRD) Af Amer 119 Est GFR (MDRD) Non-Af 98 BUN/Creatinine Ratio 12.4 Glucose 100 Calcium 8.9 Discharge Plan Triage Chief Complaint: Dizziness ED Provider: Isael Pinto Dx/Rx/DC Orders Clinical Impression: Elevated blood pressure reading, Illness, unspecified Instructions: ED Hypertension, To Be Confirmed Prescriptions: New amlodipine 5 mg tablet 5 mg PO DAILY Qty: 30 0RF No Action etodolac 300 mg capsule 300 mg PO Q8H Qty: 15 0RF gabapentin 400 mg capsule PO Label Comments: TAKE 1 CAPSULE BY MOUTH 4 TIMES DAILY meloxicam 15 mg tablet 15 mg PO DAILY Qty: 21 0RF cyclobenzaprine 5 mg tablet 5 mg PO QHS PRN (Reason: muscle spasm) Qty: 10 0RF Quetiapine Fumarate [Seroquel Xr] 50 MG Tab.Sr.24h 50 mg PO QHS ondansetron HCl [Zofran] 4 mg tablet 4 mg PO Q8H PRN (Reason: nausea and vomiting) Qty: 14 0RF famotidine [Pepcid] 20 mg tablet 20 mg PO DAILY Qty: 14 0RF Primary Care Provider: Care Physician,No Primary Referrals: Bia Alex MD [Med Staff - [employer] Intern] - 3-5 Days Care Physician,No Primary [Primary Care Provider] - Disposition Disposition: Home, Self Care
[2023-03-05 11:26] LABS: Absolute Lymphocyte Count 1.86 X10^3/uL (0.83-4.51); Absolute Neutrophil Count 3.1 X10^3/uL (2.0-7.7); Basophil# 0.04 X10^3/uL; Basophil% 0.7 % (0-1); Eosinophil# 0.13 X10^3/uL; Eosinophils% 2.3 % (0-5); Hematocrit 48.4 % (40-54); Hemoglobin 16.8 g/dL (13.0-16.5); Lymphocyte # 1.86 X10^3/ul (0.83-4.51); Lymphocyte % 32.2 % (19-41); Mean Corp Hgb Conc 34.7 g/dL (32-36); Mean Corpuscular Hgb 31.2 pg (27.0-32.0); Mean Corpuscular Volume 89.8 fL (80-94); Mean Platelet Vol. 9.3 fl (6.2-12.0); Monocyte% 10.4 % (0-10); NRBC Flagged by Analyzer 0 % (0-5); Neutrophil # 3.12 X10^3/uL (2.7-7.7); Neutrophil % 54.1 % (47-70); Platelet Count 240 K/mm3 (150-450); RBC Distribution Width CV 11.9 % (11.6-14.6); RBC Distribution Width SD 38.4 fl (35.1-43.9); Red Blood Count 5.39 M/mm3 (4.6-6.2); White Blood Count 5.8 K/mm3 (4.4-11.0)
[2023-03-05 11:37] LABS: Anion Gap 5 (5-15); BUN 12 mg/dL (7-18); BUN/Creat Ratio 12.4 RATIO (10-20); Calcium,Total 8.9 mg/dL (8.5-10.1); Chloride 109 mmol/L (98-107); Creatinine, Serum 0.97 mg/dL (0.70-1.30); EST Glomerular Filtration Rate 98 mL/min (>60); Est Glom Filt Rate - Afr Amer 119 mL/min (>60); Estimated Creatinine Clearance 125.56 ml/min; Glucose 100 mg/dL (74-106); Sodium Level 142 mmol/L (136-145)
--- NOTE | 2023-03-05 12:20 | CM.ED ---
Social Work Note Referral Source: case find Referral Reason: no PCP SW met with patient and introduced herself and role as [facility] [employer]. Patient standing in room and agreeable to speak with SW. SW inquired about patient's insurance and current PCP. Patient verified insurance and reports no current PCP. SW provided patient with a list of local PCPs in network with patient's insurance and accepting new patients. Patient was receptive towards list and voiced no other needs. SW remains available if needs arise. Pam Campos EEG TECHNOLOGIST, [place]
== END 2023-03-05 12:48 | disposition home or self-care (01) ==
PROVIDERS: Emergency Provider Emergency Medicine; Visit Provider Emergency Medicine
DX: R42 Dizziness and giddiness (principal); R03.0 Elevated blood-pressure reading, without diagnosis of hypertension; F17.210 Nicotine dependence, cigarettes, uncomplicated; R69 Illness, unspecified
CPT/HCPCS: 80048; 85025; 93005; 99282; A4216

== ENCOUNTER 2023-04-27 12:02 | Emergency (ER) | payer MEDICAID, SELFPAY ==
[2023-04-27 12:02] VITALS: BP 132/110; PULSE 109; RESP 16; TEMP 36.1; O2SAT 98; BMI 31.6
--- NOTE | 2023-04-27 12:33 | RAD_ITS ---
STUDY: X-RAY - LEFT KNEE REASON FOR EXAM: Male, 27 years old. knee pain TECHNIQUE: 4 view(s) of the knee. COMPARISON: 11/04/2022 FINDINGS: Normal visualized distal femur. Normal visualized proximal tibia and fibula. Normal proximal tibiofibular articulation. Normal medial femorotibial compartment. Normal lateral femorotibial compartment. Normal patellofemoral articulation. The soft tissue structures are unremarkable. RAD/Knee 4 or More Views IMPRESSION: Normal x-ray examination of the knee. Electronically Signed: Kale Florian MD at 12:58 EDT ,
[2023-04-27] MEDS: Ibuprofen 600 MG Tablet PO (12:51)
[2023-04-27] MEDS: Diphth,Pertuss(Acell),Tet Vac 0.5 ML Vial IM (12:52)
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
== END 2023-04-27 13:29 | disposition home or self-care (01) ==
PROVIDERS: Emergency Provider Emergency Medicine; Visit Provider Emergency Medicine
DX: S81.012A Laceration without foreign body, left knee, initial encounter (principal); S81.011A Laceration without foreign body, right knee, initial encounter; T24.232A Burn of second degree of left lower leg, initial encounter; F17.210 Nicotine dependence, cigarettes, uncomplicated; T24.221A Burn of second degree of right knee, initial encounter; S80.812A Abrasion, left lower leg, initial encounter; S80.212A Abrasion, left knee, initial encounter; T24.222A Burn of second degree of left knee, initial encounter; I10 Essential (primary) hypertension; X19.XXXA Contact with other heat and hot substances, initial encounter
CPT/HCPCS: 73564; 90715; 99283

== ENCOUNTER 2023-06-22 01:11 | Emergency (ER) | payer MEDICAID, SELFPAY ==
[2023-06-22 01:12] VITALS: BP 157/116; PULSE 118; RESP 16; TEMP 36.6; O2SAT 99; BMI 29.8
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
[2023-06-22] MEDS: oxyCODONE 5 MG Tablet 10 MG PO (02:30)
--- NOTE | 2023-06-22 02:58 | ED.RN ---
[place] [employer] AT BEDSIDE TO FILE REPORT
--- NOTE | 2023-06-22 03:00 | RAD_ITS ---
INDICATION: pain EXAMINATION/TECHNIQUE: X-RAY - XR Spine Cervical 4 or 5 Views COMPARISON: 02/26/2019 CT. FINDINGS: VERTEBRAE: No fracture or subluxation. No significant degenerative changes. No erosive changes. PREVERTEBRAL SOFT TISSUES: Unremarkable. LUNG APICES: Visualized portions unremarkable. RAD/Cerv Spine 4 or 5 Views IMPRESSION: Unremarkable views of the cervical spine. Electronically Signed: Sin Deng DO at 4:29 EDT ,
--- NOTE | 2023-06-22 03:06 | RAD_ITS ---
INDICATION: pain EXAMINATION/TECHNIQUE: X-RAY - LEFT XR Knee 3 Views COMPARISON: 02/01/2015. FINDINGS: SOFT TISSUES: Unremarkable. BONES/JOINTS: No fracture or dislocation. No significant degenerative changes. No erosive changes. RAD/Knee 3 Views IMPRESSION: Unremarkable views of the left knee. Electronically Signed: Sin Deng DO at 4:27 EDT ,
--- NOTE | 2023-06-22 03:12 | RAD_ITS ---
INDICATION: pain EXAMINATION/TECHNIQUE: X-RAY - LEFT XR Wrist Min 3 Views COMPARISON: Left hand x-rays from 07/30/2017. FINDINGS: SOFT TISSUES: Unremarkable. BONES/JOINTS: No fracture or dislocation. No significant degenerative changes. No erosive changes. RAD/Wrist min 3 Views IMPRESSION: Unremarkable views of the left wrist. Electronically Signed: Sin Deng DO at 4:30 EDT ,
--- NOTE | 2023-06-22 03:18 | RAD_ITS ---
INDICATION: pain EXAMINATION/TECHNIQUE: X-RAY - LEFT XR Shoulder Min 2 Views COMPARISON: None. FINDINGS: SOFT TISSUES: Unremarkable. BONES/JOINTS: No fracture or dislocation. No significant degenerative changes. No erosive changes. RAD/Shoulder min 2 Views IMPRESSION: Unremarkable views of the left shoulder. Electronically Signed: Sin Deng DO at 4:28 EDT ,
== END 2023-06-22 04:43 | disposition home or self-care (01) ==
PROVIDERS: Emergency Provider Emergency Medicine; Visit Provider Emergency Medicine
DX: S89.92XA Unspecified injury of left lower leg, initial encounter (principal); S49.92XA Unspecified injury of left shoulder and upper arm, initial encounter; F17.210 Nicotine dependence, cigarettes, uncomplicated; S49.91XA Unspecified injury of right shoulder and upper arm, initial encounter; Y04.8XXA Assault by other bodily force, initial encounter
CPT/HCPCS: 72050; 73030; 73110; 73562; 99283

== ENCOUNTER 2024-04-13 14:03 | Emergency (ER) | payer OTHER, MEDICAID, SELFPAY ==
[2024-04-13 14:05] VITALS: BP 124/105; PULSE 112; RESP 18; TEMP 36.8; O2SAT 96; BMI 29.2
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
[2024-04-13 14:29] VITALS: BP 121/83; BP 121/99; BP 131/97; PULSE 102; PULSE 106; PULSE 120
[2024-04-13] MEDS: 0.9% Normal Saline (1000mL) 1,000 ML 1000 ML IV (14:42)
[2024-04-13 14:47] LABS: Absolute Lymphocyte Count 2.29 X10^3/uL (0.83-4.51); Absolute Neutrophil Count 4.2 X10^3/uL (2.0-7.7); Basophil# 0.03 X10^3/uL; Basophil% 0.4 % (0-1); Eosinophils% 1.3 % (0-5); Hematocrit 46.8 % (40-54); Lymphocyte # 2.29 X10^3/ul (0.83-4.51); Lymphocyte % 30.9 % (19-41); Mean Corp Hgb Conc 34.2 g/dL (32-36); Mean Corpuscular Hgb 31.1 pg (27.0-32.0); Mean Corpuscular Volume 91.1 fL (80-94); Mean Platelet Vol. 9.9 fl (6.2-12.0); Monocyte# 0.79 X10^3/uL; Monocyte% 10.7 % (0-10); NRBC Flagged by Analyzer 0 % (0-5); Neutrophil # 4.17 X10^3/uL (2.7-7.7); Neutrophil % 56.3 % (47-70); Platelet Count 210 K/mm3 (150-450); RBC Distribution Width CV 12.3 % (11.6-14.6); RBC Distribution Width SD 40.3 fl (35.1-43.9); Red Blood Count 5.14 M/mm3 (4.6-6.2); White Blood Count 7.4 K/mm3 (4.4-11.0)
[2024-04-13 15:00] LABS: Anion Gap 7 (5-15); BUN 25 mg/dL (7-18); BUN/Creat Ratio 21.6 RATIO (10-20); Calcium,Total 8.7 mg/dL (8.5-10.1); Chloride 103 mmol/L (98-107); Creatinine, Serum 1.16 mg/dL (0.70-1.30); EST Glomerular Filtration Rate 79 mL/min (>60); Est Glom Filt Rate - Afr Amer 96 mL/min (>60); Estimated Creatinine Clearance 114.94 ml/min; Glucose 90 mg/dL (74-106); Potassium 4.3 mmol/L (3.5-5.1); Sodium Level 134 mmol/L (136-145)
[2024-04-13] MEDS: Ketorolac 30 MG/ML Syringe IV (15:44)
[2024-04-13 15:47] VITALS: BP 124/101; PULSE 100; RESP 14; TEMP 36.9; O2SAT 100
== END 2024-04-13 16:04 | disposition home or self-care (01) ==
PROVIDERS: Emergency Provider Emergency Medicine; Visit Provider Emergency Medicine
DX: T67.5XXA Heat exhaustion, unspecified, initial encounter (principal); R53.1 Weakness; R42 Dizziness and giddiness; F17.210 Nicotine dependence, cigarettes, uncomplicated; R51.9 Headache, unspecified; X30.XXXA Exposure to excessive natural heat, initial encounter
CPT/HCPCS: 80048; 85025; 96361; 96374; 99285; J7030; A4216

== ENCOUNTER → 2024-08-11 | Outpatient (CLI) | payer MEDICAID, SELFPAY ==
--- NOTE | 2024-08-11 13:36 | RAD_ITS ---
STUDY: X-RAY - LEFT KNEE REASON FOR EXAM: Male, 29 years old. Sprain. TECHNIQUE: 4 views of the left knee. COMPARISON: None. FINDINGS: Normal visualized distal femur. Normal visualized proximal tibia and fibula. Normal proximal tibiofibular articulation. There is no demonstrated fracture. Normal medial femorotibial compartment. Normal lateral femorotibial compartment. Normal patellofemoral articulation. The soft tissue structures are unremarkable. RAD/Knee 4 or More Views IMPRESSION: Normal x-ray examination of the left knee. Electronically Signed: Rome Fletcher MD at 13:55 EDT ,
== END | disposition home or self-care (01) ==
LOC: MTRAD 13:36
PROVIDERS: Referring Provider Physician Assistant; Visit Provider Physician Assistant
DX: T14.8XXA Other injury of unspecified body region, initial encounter (principal)
CPT/HCPCS: 73564

== ENCOUNTER 2024-08-24 01:53 | Emergency (ER) | payer BC, MEDICAID, SELFPAY ==
[2024-08-24 01:54] VITALS: BP 157/113; PULSE 100; RESP 18; TEMP 36.8; O2SAT 98; BMI 13.6
--- NOTE | 2024-08-24 01:57 | RAD_ITS ---
EXAM: XR CHEST, 1 VIEW CLINICAL INDICATION: chest pain TECHNIQUE: Frontal view of the chest. COMPARISON: Two-view chest 01/01/2021 FINDINGS: LUNGS AND PLEURAL SPACES: Unremarkable. No consolidation or edema. No pneumothorax. No effusion. HEART: Unremarkable. Cardiac silhouette not enlarged. MEDIASTINUM: Central airways and mediastinal contour are unremarkable. BONES/JOINTS: Unremarkable. No acute fracture. SOFT TISSUES: Unremarkable. RAD/Chest 1 View (Portable) IMPRESSION: No radiographic evidence of acute cardiopulmonary disease. Electronically Signed: Sixto Rodriguez MD at 3:12 EDT ,
--- NOTE | 2024-08-24 01:57 | EKG12_ITS ---
Test Reason : CHEST PAIN Blood Pressure : */* mmHG Vent. Rate : 104 BPM Atrial Rate : 104 BPM P-R Int : 138 ms QRS Dur : 80 ms QT Int : 340 ms P-R-T Axes : 26 12 17 degrees QTcB Int : 447 ms Sinus tachycardia Minimal voltage criteria for LVH, may be normal variant ( R in aVL ) Nonspecific T wave abnormality Abnormal ECG Confirmed by SAHLEY SALAZAR, PRISCILA ([id number]), international editorial producer KRZYSZTOF EDDY ([id number]) on 08/24/2024 1:11:12 PM Referred By: EDITH Confirmed By: PRISCILA RAMIREZ MD
[2024-08-24 02:08] LABS: Absolute Lymphocyte Count 2.88 X10^3/uL (0.83-4.51); Absolute Neutrophil Count 4.9 X10^3/uL (2.0-7.7); Basophil# 0.04 X10^3/uL; Basophil% 0.5 % (0-1); Eosinophil# 0.27 X10^3/uL; Eosinophils% 3.1 % (0-5); Hematocrit 46.2 % (40-54); Hemoglobin 16.2 g/dL (13.0-16.5); Lymphocyte # 2.88 X10^3/ul (0.83-4.51); Lymphocyte % 32.6 % (19-41); Mean Corp Hgb Conc 35.1 g/dL (32-36); Mean Corpuscular Hgb 31.6 pg (27.0-32.0); Mean Corpuscular Volume 90.2 fL (80-94); Mean Platelet Vol. 9.3 fl (6.2-12.0); Monocyte# 0.72 X10^3/uL; Monocyte% 8.1 % (0-10); NRBC Flagged by Analyzer 0 % (0-5); Neutrophil # 4.88 X10^3/uL (2.7-7.7); Neutrophil % 55.1 % (47-70); Platelet Count 245 K/mm3 (150-450); RBC Distribution Width CV 11.5 % (11.6-14.6); Red Blood Count 5.12 M/mm3 (4.6-6.2); White Blood Count 8.8 K/mm3 (4.4-11.0)
--- NOTE | 2024-08-24 02:15 | ED.VIS.CHEST ---
HPI History of Present Illness Chief Complaint: Chest Pain [facility] Medical History Strain of left knee Strain of right hand Strain of right wrist Home Medications ?Medication ?Instructions ?Recorded ?Last Taken ?Type Quetiapine Fumarate [Seroquel Xr] 50 mg PO QHS 11/19/20 Unknown History gabapentin 400 mg capsule 400 mg PO Q6H 12/20/22 Unknown History amlodipine 5 mg tablet (Norvasc) 5 mg PO DAILY #30 tabs 08/24/24 Unknown Rx quetiapine 50 mg tablet 50 - 100 mg PO QHS PRN PRN insomnia 08/24/24 Unknown History Allergy/AdvReac Type Severity Reaction Status Date / Time amoxicillin (Amoxicillin) Allergy Hives Verified 08/24/24 01:57 bee venom protein (honey bee) Allergy Angioedema Verified 08/24/24 01:57 Penicillins Allergy Hives Verified 08/24/24 01:57 Social History Smoking Status: Current every day smoker tobacco type: cigarettes and e-cigarettes EXAM Physical Exam Const Vital Signs: 08/24/24 01:54 08/24/24 02:10 08/24/24 02:11 Temperature 98.3 F Temperature Source Oral Pulse Rate 100 Respiratory Rate 18 Respiratory Pattern Normal Blood Pressure 157/113 H Blood Pressure Mean 127 Pulse Ox 98 Oxygen Delivery Method Room Air Room Air 08/24/24 02:54 08/24/24 04:00 08/24/24 05:16 Temperature 98 F Temperature Source Pulse Rate 96 74 94 Respiratory Rate 18 16 20 H Respiratory Pattern Blood Pressure 152/92 H 147/96 H 138/92 H Blood Pressure Mean 112 113 107 Pulse Ox 95 96 Oxygen Delivery Method Room Air MDM MDM MDM Narrative Medical decision making narrative: HISTORY OF PRESENT ILLNESS: 29-year-old male presents with chest pain notes 3 days of chest pain rating to the shoulder with some associated numbness. Denies nausea or vomiting. No cough fever chills. No lower extremity edema orthopnea or paroxysmal nocturnal dyspnea. No bleeding diathesis. No falls or trauma. No vomiting or diarrhea noted. No alcohol use. No illicit drug use such as methamphetamine or cocaine. Patient denies sudden onset of pain, no tearing sensation, no migratory symptoms, no new numbness, weakness or loss of sensation. Patient denies family history or personal history of Marfan syndrome or Sophia-Danlos. The patient denies recent surgery in the last 4 weeks or immobilization in the last 3 days, denies previous diagnosis of DVT or PE, hemoptysis, unilateral leg swelling or malignancy with treatment the last 6 months. No estrogen use noted. REVIEW OF SYSTEMS: All other systems reviewed and are negative except as noted in the history of present illness. At least 10 review of systems reviewed and are negative except as noted in history of present illness. PHYSICAL EXAM: Nursing triage notes reviewed, Vital signs reviewed Constitutional: please see mdm HENT: MMM Eyes: Pupils equal round and reactive to light, Extraocular muscles intact Neck: No stridor, no JVD, full neck ROM Lungs: Clear to auscultation, No wheezing or rales. No increased work of breathing, no conversational dyspnea, no accessory muscle use, no nasal flaring. No respiratory distress noted Heart: Regular rate and rhythm, No murmurs, No rubs and No gallops, 2+ distal pulses (radial, femoral, posterior tibial) in all extremities Abdomen: Soft, there is no tenderness, rigidity, rebound or guarding, no obvious peritoneal signs, no palpable pulsatile abdominal masses, no auscultated abdominal bruit : No CVAT Extremities: No edema Neuro: No focal neurological deficits, cranial nerves II through XII intact, 5/5 strength in all extremities. Intact sensation to light touch in all extremities, 2+ reflexes bilateral patella tendons. Normal gait. No ataxia. Skin: No rash or lesions noted MEDICAL DECISION MAKING: Chief Complaint: Chest pain External records reviewed: Reviewed prior cardiovascular testing Factors affecting care: Hypertension Social determinants of health: No illicit drug use History obtained from others: Significant other Consults: none MDM Narrative: Patient was initially hypertensive with a blood pressure 157/113 otherwise afebrile and nontoxic-appearing. No focal cardiopulmonary abnormalities. I considered the following differential diagnosis: ACS, arrhythmia, anemia, electrolyte abnormality, pneumonia, pneumothorax, GI etiology, PE PE less likely given low risk Wells score. Aortic dissection is thought to be less likely given no sudden ripping or tearing pain, migratory pain, palpable pulse inequalities, no focal neurologic deficits concurrent with chest pain. Chance of dissection less than 10/1999. Pericarditis less likely given no pathognomonic EKG changes (no diffuse ST elevations, [place] depressions). GI etiology (i.e. Boerhaave syndrome) less likely given no chest or neck crepitus, no vomiting or forced retching. ALL IMAGES (IF OBTAINED) HAVE BEEN PERSONALLY REVIEWED AND INTERPRETED BY MYSELF. EKG with sinus tachycardia, normal axis, normal normals, no STEMI CBC without leukocytosis, severe anemia, no thrombocytopenia. BMP without evidence of significant electrolyte abnormalities, no anion gap, no acute kidney injury. High-sensitivity troponin is negative, no evidence of myocardial ischemia I have personally reviewed the patient's chest x-ray. Chest x-ray is unremarkable for pulmonary edema, pneumothorax, pneumonia or focal cardiopulmonary abnormality. Awaiting delta troponin, delta troponin is negative On re-evaluation the patient is chest pain-free. Blood pressure improved to 138/92. Patient is appropriate for discharge home. Will write Norvasc to begin to treat his elevated blood pressure. Encourage PCP follow-up for further outpatient evaluation and treatment including possible stress test echocardiogram. I completed a HEART Score to screen for Major Adverse Cardiac Event (MACE) in this patient. The evidence indicates that the patient is very low risk for MACE and this is consistent with my clinical intuition. The risk of further workup or hospitalization for MACE is likely higher than the risk of the patient having a MACE. It is, therefore, in the patient?s best interest not to do additional emergent testing or to be hospitalized for MACE at this time. Shared Decision-Making No hospitalization indicated I have discussed with the patient my clinical impression and the result of the HEART Score to screen for MACE, as well as the risks of further testing and hospitalization. The HEART Score shows that the risk for MACE is less than 1%. Although the risk of MACE has not been completely eliminated, the risks of further testing or hospitalization for MACE likely exceed any potential benefit, and the patient agrees with not pursuing further emergent evaluation or hospitalization for MACE at this time. The patient and/or family, caregivers express understanding. The patient and/or family, caregivers agrees with the plan. Total critical care time today provided was at least 0 minutes. This excludes separately billable procedures. Critical care time (if documented) is secondary to the patient having high probability of clinically significant/life threatening deterioration in the patient's condition which required my urgent intervention. Impression: 1. Chest pain 2. History of hypertension Disposition: Discharge home Sukhdev Jo, DO Lab Data Labs: Laboratory Results - last 24 hr 08/24/24 08/24/24 02:01 04:03 WBC 8.8 RBC 5.12 Hgb 16.2 Hct 46.2 MCV 90.2 MCH 31.6 MCHC 35.1 RDW Std Deviation 38.0 RDW Coeff of Apple 11.5 L Plt Count 245 MPV 9.3 Immature Gran % (Auto) 0.600 Neut % (Auto) 55.1 Lymph % (Auto) 32.6 [place] % (Auto) 8.1 Eos % (Auto) 3.1 Baso % (Auto) 0.5 Absolute Neuts (auto) 4.9 Absolute Lymphs (auto) 2.88 Nucleated RBC % 0 Sodium 138 Potassium 3.9 Chloride 106 Carbon Dioxide 24.0 Anion Gap 8 BUN 22 H Creatinine 1.11 Estim Creat Clear Calc 63.57 Est GFR (MDRD) Af Amer 101 Est GFR (MDRD) Non-Af 83 BUN/Creatinine Ratio 19.8 Glucose 138 H Calcium 8.4 L Troponin I High Sens < 3 L < 3 L Radiography Diagnostic Testing: Clinical Impression(s) from Imaging Studies Chest X-Ray 08/24/24 01:57 IMPRESSION: No radiographic evidence of acute cardiopulmonary disease. Electronically Signed: Sixto Rodriguez MD at 3:12 EDT , Discharge Plan Triage Chief Complaint: Chest Pain ED Provider: Sukhdev Jo Dx/Rx/DC Orders Instructions: Chest Pain [facility] Prescriptions: New amlodipine [Norvasc] 5 mg tablet 5 mg PO DAILY Qty: 30 0RF No Action gabapentin 400 mg capsule 400 mg PO Q6H Patient Comments: TAKE 1 CAPSULE BY MOUTH 4 TIMES DAILY Quetiapine Fumarate [Seroquel Xr] 50 MG Tab.Sr.24h 50 mg PO QHS quetiapine 50 mg tablet 50 - 100 mg PO QHS PRN PRN (Reason: insomnia) Primary Care Provider: Care Physician,No Primary Referrals: Chintan Feldman MD [Med Staff - [employer]ision [employer] Instructor] - Activity Restrictions/Additional Instructions: Thank you for trusting us with your care today! Your labs and images were reassuring. Your blood pressure was elevated. Please begin taking Norvasc (amlodipine), 5 mg daily. Please take Tylenol (2 pills, 650 mg), ibuprofen (2 pills, 400 mg) every 6 hours as needed for pain and fever control. Please return to the emergency department if your symptoms change or worsen. Please follow with your primary care physician for further outpatient evaluation and management. Print Language: Greenlandic Disposition Disposition: Home, Self Care Discharge Date/Time: 08/24/24 05:23
[2024-08-24 02:25] LABS: Anion Gap 8 (5-15); BUN 22 mg/dL (7-18); BUN/Creat Ratio 19.8 RATIO (10-20); Calcium,Total 8.4 mg/dL (8.5-10.1); Chloride 106 mmol/L (98-107); Creatinine, Serum 1.11 mg/dL (0.70-1.30); EST Glomerular Filtration Rate 83 mL/min (>60); Est Glom Filt Rate - Afr Amer 101 mL/min (>60); Estimated Creatinine Clearance 63.57 ml/min; Glucose 138 mg/dL (74-106); Potassium 3.9 mmol/L (3.5-5.1); Sodium Level 138 mmol/L (136-145); Troponin-I HS (w/2H Reflex) < 3 pg/mL (3.0-78.0)
[2024-08-24 02:54] VITALS: BP 152/92; PULSE 96; RESP 18
[2024-08-24 04:00] VITALS: BP 147/96; PULSE 74; RESP 16; O2SAT 95
[2024-08-24 04:05] LABS: Reflex Troponin-HS? (from REC) Y
[2024-08-24 04:27] LABS: Troponin-I HS < 3 pg/mL (3.0-78.0)
[2024-08-24 05:16] VITALS: BP 138/92; PULSE 94; RESP 20; TEMP 36.6; O2SAT 96
== END 2024-08-24 05:23 | disposition home or self-care (01) ==
PROVIDERS: Emergency Provider Emergency Medicine; Visit Provider Emergency Medicine
DX: R07.9 Chest pain, unspecified (principal); I10 Essential (primary) hypertension; F17.210 Nicotine dependence, cigarettes, uncomplicated
CPT/HCPCS: 71045; 80048; 84484; 85025; 93005; 99284; A4216

== ENCOUNTER 2025-06-03 23:40 | Emergency (ER) | payer MEDICAID, SELFPAY ==
[2025-06-03 23:42] VITALS: BP 137/89; PULSE 108; RESP 18; TEMP 36.9; O2SAT 96; BMI 31.4
[2025-06-03 23:46] VITALS: O2SAT 96
[2025-06-04] VITALS (9 sets, daily range): BP systolic 104–144; BP diastolic 56–97; PULSE 65–108; RESP 14–18; TEMP 36.7; O2SAT 96–97
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
--- NOTE | 2025-06-04 00:27 | EKG12_ITS ---
Test Reason : TRAUMA Blood Pressure : */* mmHG Vent. Rate : 101 BPM Atrial Rate : 101 BPM P-R Int : 166 ms QRS Dur : 90 ms QT Int : 360 ms P-R-T Axes : 37 21 25 degrees QTcB Int : 466 ms Sinus tachycardia Nonspecific T wave abnormality Abnormal ECG Confirmed by ASHLEY SALAZAR, PRISCILA ([id number]), assignment editor HANNA MCKENZIE ([id number]) on 06/06/2025 1:08:31 PM Referred By: GRAYSON Confirmed By: PRISCILA RAMIREZ MD
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
[2025-06-04 00:42] LABS: Hematocrit 44.9 % (40-54); Hemoglobin 16.1 g/dL (13.0-16.5); Immature Granulocytes Count 0.050 X10^3/uL (0.0-0.0); Mean Corp Hgb Conc 35.9 g/dL (32-36); Mean Corpuscular Volume 88.9 fL (80-94); Mean Platelet Vol. 9.6 fl (6.2-12.0); NRBC Flagged by Analyzer 0 % (0-5); Platelet Count 275 K/mm3 (150-450); RBC Distribution Width CV 11.7 % (11.6-14.6); RBC Distribution Width SD 37.8 fl (35.1-43.9); Red Blood Count 5.05 M/mm3 (4.6-6.2); White Blood Count 9.7 K/mm3 (4.4-11.0)
--- NOTE | 2025-06-04 00:50 | RAD_ITS ---
PROCEDURE: KNEE 3 VIEWS 06/04/2025 REASON FOR EXAM: FALL, PAIN TECHNIQUE: KNEE 3 VIEWS Laterality: Right COMPARISON: 08/11/2024 FINDINGS: Anterior suprapatellar soft tissue swelling. No fracture, dislocation, joint effusion. RAD/Knee 3 Views IMPRESSION: Soft tissue injury Reading Location: [place] [id number]
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
[2025-06-04 00:52] LABS: Prothrombin Time (Protime)PT. 14.0 SECONDS (11.7-14.9)
[2025-06-04 00:53] LABS: Partial Thromboplast Time 23.2 Seconds (24.1-36.2)
[2025-06-04] MEDS: 0.9% Normal Saline (1000mL) 1,000 ML 999 ML IV (01:00)
[2025-06-04 01:03] LABS: AST(SGOT) 36 U/L (<=37); Alanine Aminotransfer ALT/SGPT 42 U/L (<=46); Albumin, Serum 4.5 g/dL (3.5-5.0); Alkaline Phosphatase 93 U/L (40-129); Anion Gap 16 (5-15); BUN 13 mg/dL (4-19); BUN/Creat Ratio 13.0 RATIO (10-20); Bilirubin, Direct 0.12 mg/dL (0.00-0.30); Calcium,Total 9.1 mg/dL (7.6-11.0); Carbon Dioxide 19.1 mmol/L (21.0-32.0); Chloride 101 mmol/L (98-108); Estimated Creatinine Clearance 135.24 ml/min (50-250); Globulin 3.1 g/dL (2.2-4.2); Glucose 93 mg/dL (70-99); Lipase 25 U/L (13-75); Potassium 3.5 mmol/L (3.3-5.1)
--- OUTSIDE RECORDS SUMMARY | 2025-06-04 01:15 | XMS RPT_ITS | CCD ---
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 Vest Finisher: [facility] Transcribe Date/Time: Jan 04 2025 9:33A Dictated by : LANNY HINTON MD This examination was interpreted and the report reviewed and electronically signed by: LANNY HINTON MD on Jan 04 2025 9:34AM EST DIVISION OF RADIOLOGY * * *Final Report* * * DATE OF EXAM: Jan 04 2025 9:32AM WOX 5291 - XR CHEST 2V FRONTAL/LAT / PROCEDURE REASON: Acute cough * * * * Physician Interpretation * * * * EXAMINATION: CHEST RADIOGRAPH (2 VIEW FRONTAL & LATERAL) CLINICAL HISTORY: Acute cough MQ: XC2_6 EXAM DATE/TIME: 01/04/2025 9:32 AM COMPARISON: No relevant prior studies available. RESULT: Lines, tubes, and devices: None. Lungs and pleura: No consolidation. No lung mass. No pleural effusion. No pneumothorax. Cardiomediastinal silhouette: Normal cardiomediastinal silhouette. Bones and soft tissues: Unremarkable. DIVISION OF RADIOLOGY Provider, [facility]/04/[facility]25 * * *Final Report* * * DATE OF EXAM: Jan 04 2025 9:32AM WOX 5291 - XR CHEST 2V FRONTAL/LAT / PROCEDURE REASON: Acute cough * * * * Physician Interpretation * * * * EXAMINATION: CHEST RADIOGRAPH (2 VIEW FRONTAL & LATERAL) CLINICAL HISTORY: Acute cough MQ: XC2_6 EXAM DATE/TIME: 01/04/2025 9:32 AM COMPARISON: No relevant prior studies available. RESULT: Lines, tubes, and devices: None. Lungs and pleura: No consolidation. No lung mass. No pleural effusion. No pneumothorax. Cardiomediastinal silhouette: Normal cardiomediastinal silhouette. Bones and soft tissues: Unremarkable. IMPRESSION IMPRESSION: No acute radiographic abnormality. Vest Finisher: [facility] Transcribe Date/Time: Jan 04 2025 9:33A Dictated by : LANNY HINTON MD This examination was interpreted and the report reviewed and electronically signed by: LANNY HINTON MD on Jan 04 2025 9:34AM EST [facility] Radiology Study observation (narrative) [facility] XR Chest PA and LateralOrder ed By: Ccf Provider on 01-04-2025 [facility] 12 Lead EKGon 08-24-2024 12 Lead EKG [facility] Cardiovascular Services [address] [place] [address] 12 Lead EKG 08/24/24 0142 MR#: [id number] Acct: [id number] Name: SEAN PAPPAS Rep #: [id number] : 1995 29 From: Ryan Hernandez MD Attending Dr: Status: DEP ER Ordering Dr: Sukhdev Jo DO Date: 08/24/24 Location: ED Sex: M C Admitted: Test Reason : CHEST PAIN Blood Pressure : */* mmHG Vent. Rate : 104 BPM Atrial Rate : 104 BPM P-R Int : 138 ms QRS Dur : 80 ms QT Int : 340 ms P-R-T Axes : 26 12 17 degrees QTcB Int : 447 ms Sinus tachycardia Minimal voltage criteria for LVH, may be normal variant ( R in aVL ) Nonspecific T wave abnormality Abnormal ECG Confirmed by RYAN HERNANDEZ MD ([id number]), editor at large [id number] EDDY ([id number]) on 08/24/2024 1:11:12 PM Referred By: SANDRO Confirmed By: RYAN HERNANDEZ MD 08/24/24 1311 Date Ryan Hernandez MD CC: Dr. Sukhdev Jo, DO; No Primary Care Physician Signed Normal [facility] Basic Metabolic Profile (BMP )on 08-24-2024 BUN/CRE 19.8 RATIO Normal - [facility] Comment on above: Order Comment: 1 Y Performed By: #### L 501.5425, L100.0100, L500.2500 #### [facility] [address] [place], [address] CA,Total 8.4 mg/dL Low 8.5-10.1 [facility] Comment on above: Order Comment: 1 Y Performed By: #### L 501.5425, L100.0100, L500.2500 #### [facility] [address] [place], [address] Chloride [Moles/Vol] 106 mmol/L Normal 98-107 [facility] Comment on above: Order Comment: 1 Y Performed By: #### L 501.5425, L100.0100, L500.2500 #### [facility] [address] [place], [address] CO2 [Moles/Vol] 24.0 mmol/L Normal 21.0-32.0 [facility] Comment on above: Order Comment: 1 Y Performed By: #### L 501.5425, L100.0100, L500.2500 #### [facility] [address] [place], [address] Creatinine [Mass/Vol] 1.11 mg/dL Normal 0.70-1.30 [facility] Comment on above: Order Comment: 1 Y Result Comment: The validity of the calculated GFR GFRAA in patients over 70 years has not been determined. Clinical correlation is essential. Performed By: #### L 501.5425, L100.0100, L500.2500 #### [facility] [address] [place], [address] ECRCL 63.57 ml/min Normal [facility] Comment on above: Order Comment: 1 Y Performed By: #### L 501.5425, L100.0100, L500.2500 #### [facility] [address] [place], [address] EST GFR - AA 101 mL/min Normal >60 [facility] Comment on above: Order Comment: 1 Y Result Comment: Afri can [place] GFR Calc Performed By: #### L 501.5425, L100.0100, L500.2500 #### [facility] [address] [place], [address] GAP 8 Normal 5-15 [facility] Comment on above: Order Comment: 1 Y Performed By: #### L 501.5425, L100.0100, L500.2500 #### [facility] [address] [place], [address] GFR/1.73 sq M.predicted among non-blacks MDRD (S/P/Bld) [Vol rate/Area] 83 mL/min/{1.73_m2} Normal >60 [facility] Comment on above: Order Comment: 1 Y Result Comment: Non- GFR Calc Performed By: #### L 501.5425, L100.0100, L500.2500 #### [facility] [address] [place], [address] Glucose [Mass/Vol] 138 mg/dL High 74-106 [facility] Comment on above: Order Comment: 1 Y Result Comment: Fast ing Glucose result greater than or equal to 126 mg/dL suggests DIABETES MELLITUS per A.D.A. criteria. Performed By: #### L 501.5425, L100.0100, L500.2500 #### [facility] [address] [place], [address] Potassium [Moles/Vol] 3.9 mmol/L Normal 3.5-5.1 [facility] Comment on above: Order Comment: 1 Y Performed By: #### L 501.5425, L100.0100, L500.2500 #### [facility] [address] [place], [address] Sodium [Moles/Vol] 138 mmol/L Normal 136-145 [facility] Comment on above: Order Comment: 1 Y Performed By: #### L 501.5425, L100.0100, L500.2500 #### [facility] [address] [place], [address] Urea nitrogen [Mass/Vol] 22 mg/dL High 7-18 [facility] Comment on above: Order Comment: 1 Y Performed By: #### L 501.5425, L100.0100, L500.2500 #### [facility] [address] [place], [address] CBC W/Diff, Automatedon 10- Absolute Lymph 2.88 X10 3/uL Normal 0.83-4.51 [facility] Comment on above: Performed By: #### L 501.5425, L100.0100, L500.2500 #### [facility] [address] [place], [address] Absolute Neut 4.9 X10 3/uL Normal 2.0-7.7 [facility] Comment on above: Performed By: #### L 501.5425, L100.0100, L500.2500 #### [facility] [address] [place], [address] Basophils/100 WBC (Bld) 0.5 % Normal 0-1 [facility] Comment on above: Performed By: #### L 501.5425, L100.0100, L500.2500 #### [facility] [address] [place], [address] Eosinophils/100 WBC (Bld) 3.1 % Normal 0-5 [facility] Comment on above: Performed By: #### L 501.5425, L100.0100, L500.2500 #### [facility] [address] [place], [address] Erythrocyte distribution width (RBC) [Ratio] 11.5 % Low 11.6-14.6 [facility] Comment on above: Performed By: #### L 501.5425, L100.0100, L500.2500 #### [facility] [address] [place], [address] Hematocrit (Bld) [Volume fraction] 46.2 % Normal 40-54 [facility] Comment on above: Performed By: #### L 501.5425, L100.0100, L500.2500 #### [facility] [address] [place], [address] Hemoglobin (Bld) [Mass/Vol] 16.2 g/dL Normal 13.0-16.5 [facility] Comment on above: Performed By: #### L 501.5425, L100.0100, L500.2500 #### [facility] [address] [place], [address] IG% 0.600 Normal 0.0-0.9 [facility] Comment on above: Result Comment: IG% - Immature Granulocytes (promyelocytes, myelocytes and metamyelocytes) > 1% indicates that a LEFT SHIFT is Present. Performed By: #### L 501.5425, L100.0100, L500.2500 #### [facility] [address] [place], [address] Lymphocytes/100 WBC (Bld) 32.6 % Normal 19-41 [facility] Comment on above: Performed By: #### L 501.5425, L100.0100, L500.2500 #### [facility] [address] [place], [address] MCH (RBC) [Entitic mass] 31.6 pg Normal 27.0-32.0 [facility] Comment on above: Performed By: #### L 501.5425, L100.0100, L500.2500 #### [facility] [address] [place], [address] MCHC (RBC) [Mass/Vol] 35.1 g/dL Normal 32-36 [facility] Comment on above: Performed By: #### L 501.5425, L100.0100, L500.2500 #### [facility] [address] [place], [address] MCV (RBC) [Entitic vol] 90.2 fL Normal 80-94 [facility] Comment on above: Performed By: #### L 501.5425, L100.0100, L500.2500 #### [facility] [address] [place], [address] Monocytes/100 WBC (Bld) 8.1 % Normal 0-10 [facility] Comment on above: Performed By: #### L 501.5425, L100.0100, L500.2500 #### [facility] [address] [place], [address] Neutrophils/100 WBC (Bld) 55.1 % Normal 47-70 [facility] Comment on above: Performed By: #### L 501.5425, L100.0100, L500.2500 #### [facility] [address] [place], [address] Nucleated RBC (Bld) [#/Vol] 0 10*3/uL Normal 0-5 [facility] Comment on above: Performed By: #### L 501.5425, L100.0100, L500.2500 #### [facility] [address] [place], [address] Platelet mean volume (Bld) [Entitic vol] 9.3 fL Normal 6.2-12.0 [facility] Comment on above: Performed By: #### L 501.5425, L100.0100, L500.2500 #### [facility] [address] [place], [address] Platelets (Bld) [#/Vol] 245 10*3/uL Normal 150-450 [facility] Comment on above: Performed By: #### L 501.5425, L100.0100, L500.2500 #### [facility] [address] [place], [address] RBC (Bld) [#/Vol] 5.12 10*6/uL Normal 4.6-6.2 [facility] Comment on above: Performed By: #### L 501.5425, L100.0100, L500.2500 #### [facility] [address] [place], [address] RDW SD 38.0 fl Normal 35.1-43.9 [facility] Comment on above: Performed By: #### L 501.5425, L100.0100, L500.2500 #### [facility] [address] [place], [address] WBC (Bld) [#/Vol] 8.8 10*3/uL Normal 4.4-11.0 [facility] Comment on above: Performed By: #### L 501.5425, L100.0100, L500.2500 #### [facility] [address] [place], [address] Chest 1 View (Portable)on Chest 1 View (Portable) [facility] Imaging Services [address] [place] [address] Chest 1 View (Portable) MR#: [id number] Acct: [id number] Name: SEAN PAPPAS Rep #: [id number] : 1995 M 29 From: Sixto Rodriguez MD PCP: Care Physician,No Primary Status: REG ER Study: Chest 1 View (Portable) Date of Exam: 08/24/24 Exam# [id number] Ordering Dr: Sukhdev Jo DO [id number] EXAM: XR CHEST, 1 VIEW CLINICAL INDICATION: chest pain TECHNIQUE: Frontal view of the chest. COMPARISON: Two-view chest 01/01/2021 FINDINGS: LUNGS AND PLEURAL SPACES: Unremarkable. No consolidation or edema. No pneumothorax. No effusion. HEART: Unremarkable. Cardiac silhouette not enlarged. MEDIASTINUM: Central airways and mediastinal contour are unremarkable. BONES/JOINTS: Unremarkable. No acute fracture. SOFT TISSUES: Unremarkable. RAD/Chest 1 View (Portable) IMPRESSION: No radiographic evidence of acute cardiopulmonary disease. Electronically Signed: Sixto Rodriguez MD at 3:12 EDT , CC: Dr. Sukhdev Jo DO; No Primary Care Physician Vest Finisher: Signed Normal [facility] Emergency Department Summary on 08-24-2024 Emergency Department Summary [facility] Medical Records Department [address] [place] [address] Emergency Department Summary 08/24/24 MR#: [id number] Acct: [id number] Name: SEAN PAPPAS Rep #: [id number] : 1995 29 From: Sukhdev Jo DO PCP: Care Physician,No Primary Status:[facility] ER Location: ED HPI History of Present Illness Chief Complaint: Chest Pain [facility] Medical History Strain of left knee Strain of right hand Strain of right wrist Home Medications ???Medication ???Instructions ???Recorded ???Last Taken ???Type Quetiapine Fumarate [Seroquel Xr] 50 mg PO QHS 11/19/20 Unknown History gabapentin 400 mg capsule 400 mg PO Q6H 12/20/22 Unknown History amlodipine 5 mg tablet (Norvasc) 5 mg PO DAILY #30 tabs 08/24/24 Unknown Rx quetiapine 50 mg tablet 50 - 100 mg PO QHS PRN PRN insomnia 08/24/24 Unknown History Allergy/AdvReac Type Severity Reaction Status Date / Time amoxicillin (Amoxicillin) Allergy Hives Verified 08/24/24 01:57 bee venom protein (honey bee) Allergy Angioedema Verified 08/24/24 01:57 Penicillins Allergy Hives Verified 08/24/24 01:57 Social History Smoking Status: Current every day smoker tobacco type: cigarettes and e-cigarettes EXAM Physical Exam Const Vital Signs: 08/24/24 01:54 08/24/24 02:10 08/24/24 02:11 Temperature 98.3 F Temperature Source Oral Pulse Rate 100 Respiratory Rate 18 Respiratory Pattern Normal Blood Pressure 157/113 H Blood Pressure Mean 127 Pulse Ox 98 Oxygen Delivery Method Room Air Room Air 08/24/24 02:54 08/24/24 04:00 08/24/24 05:16 Temperature 98 F Temperature Source Pulse Rate 96 74 94 Respiratory Rate 18 16 20 H Respiratory Pattern Blood Pressure 152/92 H 147/96 H 138/92 H Blood Pressure Mean 112 113 107 Pulse Ox 95 96 Oxygen Delivery Method Room Air MDM MDM MDM Narrative Medical decision making narrative: HISTORY OF PRESENT ILLNESS: 29-year-old male presents with chest pain notes 3 days of chest pain rating to the shoulder with some associated numbness. Denies nausea or vomiting. No cough fever chills. No lower extremity edema orthopnea or paroxysmal nocturnal dyspnea. No bleeding diathesis. No falls or trauma. No vomiting or diarrhea noted. No alcohol use. No illicit drug use such as methamphetamine or cocaine. Patient denies sudden onset of pain, no tearing sensation, no migratory symptoms, no new numbness, weakness or loss of sensation. Patient denies family history or personal history of Marfan syndrome or Sophia-Danlos. The patient denies recent surgery in the last 4 weeks or immobilization in the last 3 days, denies previous diagnosis of DVT or PE, hemoptysis, unilateral leg swelling or malignancy with treatment the last 6 months. No estrogen use noted. REVIEW OF SYSTEMS: All other systems reviewed and are negative except as noted in the history of present illness. At least 10 review of systems reviewed and are negative except as noted in history of present illness. PHYSICAL EXAM: Nursing triage notes reviewed, Vital signs reviewed Constitutional: please see [facility] HENT: MMM Eyes: Pupils equal round and reactive to light, Extraocular muscles intact Neck: No stridor, no JVD, full neck ROM Lungs: Clear to auscultation, No wheezing or rales. No increased work of breathing, no conversational dyspnea, no accessory muscle use, no nasal flaring. No respiratory distress noted Heart: Regular rate and rhythm, No murmurs, No rubs and No gallops, 2+ distal pulses (radial, femoral, posterior tibial) in all extremities Abdomen: Soft, there is no tenderness, rigidity, rebound or guarding, no obvious peritoneal signs, no palpable pulsatile abdominal masses, no auscultated abdominal bruit : No CVAT Extremities: No edema Neuro: No focal neurological deficits, cranial nerves II through XII intact, 5/5 strength in all extremities. Intact sensation to light touch in all extremities, 2+ reflexes bilateral patella tendons. Normal gait. No ataxia. Skin: No rash or lesions noted MEDICAL DECISION MAKING: Chief Complaint: Chest pain External records reviewed: Reviewed prior cardiovascular testing Factors affecting care: Hypertension Social determinants of health: No illicit drug use History obtained from others: Significant other Consults: none [facility] Narrative: Patient was initially hypertensive with a blood pressure 157/113 otherwise afebrile and nontoxic- appearing. No focal cardiopulmonary abnormalities. I considered the following differential diagnosis: ACS, arrhythmia, anemia, electrolyte abnormality, pneumonia, pneumothorax, GI etiology, PE PE less likely given low risk Wells scor (more content not included)... Normal [facility] L501.4020on 08-24-2024 TROPONIN-I HS < 3 Low 3.0-78.0 [facility] Comment on above: Result Comment: Mahin beltrán Note: New Test Units and Gender Specific Reference Ranges. For more information see Policy Stat Procedure [place] High Sensitivity Troponin (TNIH) and attachments. Performed By: #### L 501.4020 #### [facility] [address] [place], [address] L501.5425on 08-24-2024 TROPONIN-I HS < 3 Low 3.0-78.0 [facility] Comment on above: Order Comment: 1 Y Result Comment: Mahin beltrán Note: New Test Units and Gender Specific Reference Ranges. For more information see Policy Stat Procedure [place] High Sensitivity Troponin (TNIH) and attachments. Performed By: #### L 501.5425, L100.0100, L500.2500 #### [facility] [address] [place], [address] Urgent Care Visit Reporton 1 Urgent Care Visit Report [facility] [address], [address] [place], [place] [address] OFFICE VISIT Date of Service: 08/13/24 MR#: [id number] Acct: [id number] Name: SEAN PAPPAS Rep #: [id number] : 1995 Provider: RAVI Monreal Age/Sex: 29/M Location: [facility] Status: Signed Intake Vital Signs 08/11/24 13:26 08/11/24 13:55 08/13/24 16:35 Height 6 ft 6 ft Weight: 210 lb BMI 28.5 BP 138/96 H 124/78 H Blood Pressure Location Lt brachial Lt brachial Position Sitting Sitting Respiration 18 14 Pulse 109 H 109 H Pulse Source Monitor Monitor Temp 98.7 F 98.3 F Temp Source Oral Oral Pulse Oximetry (%) 98 98 Oxygen Delivery Method room air room air Intake Visit Reasons: 2 DAY FU L KNEE INJURY/DURAFLEX Allergies amoxicillin (Amoxicillin) Allergy (Verified 08/13/24 16:37) Hives bee venom protein (honey bee) Allergy (Verified 08/13/24 16:37) Angioedema Penicillins Allergy (Verified 08/13/24 16:37) Hives [facility] Medical History (Updated 08/11/24 @ 13:46 by Seferino RODRIGUES, PA) Strain of left knee Strain of right hand Strain of right wrist Social History Smoking Status: Current every day smoker tobacco type: cigarettes HPI HPI Details: SEAN PAPPAS, is a 29 M who presents to the office today for f/u left anterior knee injury. Patient notes on [employer] while at work getting his foot caught between metal product on the floor causing him to fall backward and hyperflexing/torquing his knee as he describes in the process. Since initial evaluation, he notes remarkable improvement with only trace medial knee aching discomfort with no joint swelling nor locking or giving way of the same. PMH NC. No left hip/ankle complaints. No tsta-qaf-mfotcvk products taken to assist. No other associated symptoms and no other alleviating/aggravati ng factors. ROS Const Constitutional: No other (As above) Exam Const General: cooperative, healthy appearing and no acute distress Orientation: alert and awake Eyes General: appearance normal, both eyes and all related structures Resp Effort Inspection: normal respiratory effort and able to speak in complete sentences Cardio Rate: regular rate Pulses: radial pulses present Skin General: no rashes or lesions noted Neuro General: patient alert, patient awake and gait normal Cognition: normal cognition Speech: speech normal Extrem General: normal to inspection, full ROM, capillary refill normal and normal exam except as noted (L knee: Neg. Brionna/drawer, w/ trace tender to touch proximal/distal to patella) Psych Appearance: grossly normal Mental Status: mental status grossly normal Mood: congruent mood Affect: normal affect Speech and Movement: speech and movement normal Attitude: cooperative Diagnoses Strain of left knee S86.912A Assessment and Plan Assessment and Plan (1) Strain of left knee: Status: Acute Plan: Return to work w/ sitting duties only through/including 08/13/2024, and returning to work without restrictions effective tomorrow (08/14/2024) as noted on today's [employer] 14. Follow-up with the [facility] on an as-needed basis only. Patient states acknowledging understanding all the above. Coding Level of Care Code Off vis,est,level 2 08/13/24 1857 Date Seferino Huang Signature: Date (if applicable) CC: Normal [facility] Office Visit Reporton [address] [facility] [address] [place] [address] OFFICE VISIT Date of Service: 08/11/24 MR#: [id number] Acct: [id number] Patient: SEAN PAPPAS Rep #: [id number] : 1995 Provider: RAVI Monreal Age/Sex: 29/M Location: [facility] Status: Signed Intake Vital Signs 04/13/24 14:05 Height 6 ft Intake Visit Reasons: RAVI NON DOT DRUG BAT/ DURAFLEX Chief Complaint: left knee/ Duraflex Allergies amoxicillin (Amoxicillin) Allergy (Verified 08/11/24 13:27) Hives bee venom protein (honey bee) Allergy (Verified 08/11/24 13:27) Angioedema Penicillins Allergy (Verified 08/11/24 13:27) Hives Office Procedures [facility] Billing Sheet Testing Post-Accident Non-DOT Breath Alcohol Test: Yes Post-Accident NON-DOT Drug Screen in [facility]: Yes 08/13/24 1245 Date Seferino Huang Signature: Date (if applicable) CC: Normal [facility] Knee 4 or More Viewson 08-11 Knee 4 or More Views [facility] Imaging Services [address] [place] [address] Knee 4 or More Views MR#: [id number] Acct: [id number] Name: SEAN PAPPAS Rep #: [id number] : 1995 M 29 From: Rome Fletcher MD PCP: Care Physician,No Primary Status: REG CLI Study: Knee 4 or More Views Date of Exam: 08/11/24 Exam# [id number] Ordering Dr: Seferino Moyer [id number] STUDY: X-RAY - LEFT KNEE REASON FOR EXAM: Male, 29 years old. Sprain. TECHNIQUE: 4 views of the left knee. COMPARISON: None. FINDINGS: Normal visualized distal femur. Normal visualized proximal tibia and fibula. Normal proximal tibiofibular articulation. There is no demonstrated fracture. Normal medial femorotibial compartment. Normal lateral femorotibial compartment. Normal patellofemoral articulation. The soft tissue structures are unremarkable. RAD/Knee 4 or More Views IMPRESSION: Normal x-ray examination of the left knee. Electronically Signed: Rome Fletcher MD at 13:55 EDT Reading Location ID and State: [address] [place] [address] , Service support , CC: No Primary Care Physician; RAVI Monreal Vest Finisher: Signed Normal [facility] Urgent Care Visit Reporton 1 Urgent Care Visit Report [facility] [address], [address] [place] [address] OFFICE VISIT Date of Service: 08/11/24 MR#: [id number] Acct: [id number] Name: SEAN PAPPAS Rep #: [id number] : 1995 Provider: RAVI Monreal Age/Sex: 29/M Location: [facility] Status: Signed Intake Vital Signs 04/13/24 14:05 08/11/24 13:26 Height 6 ft 6 ft Weight: 210 lb BMI 28.5 BP 138/96 H Blood Pressure Location Lt brachial Position Sitting Respiration 18 Pulse 109 H Pulse Source Monitor Temp 98.7 F Temp Source Oral Pulse Oximetry (%) 98 Oxygen Delivery Method room air Intake Visit Reasons: L KNEE INJURY/ DURAFLEX Chief Complaint: left knee/ Duraflex Shingle Catcher Required: No Accompanied by: Self Is patient in pain?: Yes Allergies amoxicillin (Amoxicillin) Allergy (Verified 08/11/24 13:27) Hives bee venom protein (honey bee) Allergy (Verified 08/11/24 13:27) Angioedema Penicillins Allergy (Verified 08/11/24 13:27) Hives Medications ???Medication ???Instructions ???Recorded ???Confirmed ???Type Quetiapine Fumarate [Seroquel Xr] 50 mg PO QHS 11/19/20 08/11/24 History gabapentin 400 mg capsule 400 mg PO Q6H 12/20/22 08/11/24 History PFSH Medical History (Updated 08/11/24 @ 13:46 by Seferino RODRIGUES, PA) Strain of left knee Strain of right hand Strain of right wrist Social History Smoking Status: Current every day smoker tobacco type: cigarettes HPI HPI Chief Complaint: left knee/ Duraflex Details: SEAN PAPPAS, is a 29 M who presents to the office today for initial evaluation left anterior knee pain. Patient notes earlier today while at work getting his foot caught between metal product on the floor causing him to fall backward and hyperflexing/torquing his knee as he describes in the process. He noted immediate pain proximal to as well as distal to left patella. He appreciates no joint swelling nor locking or giving way of the same. PMH NC. No left hip/ankle complaints. No hzek-clh-aeuyfab products taken to assist. No other associated symptoms and no other alleviating/aggravati ng factors. ROS Const Constitutional: No other (As above) Exam Const General: cooperative, healthy appearing and no acute distress Orientation: alert and awake Eyes General: appearance normal, both eyes and all related structures Resp Effort Inspection: normal respiratory effort and able to speak in complete sentences Cardio Rate: regular rate Pulses: radial pulses present Skin General: no rashes or lesions noted Neuro General: patient alert, patient awake and gait normal Cognition: normal cognition Speech: speech normal Extrem General: normal to inspection, full ROM, capillary refill normal and normal exam except as noted (L knee: Neg. Brionna/drawer, w/ tender to touch proximal/distal to patella) Psych Appearance: grossly normal Mental Status: mental status grossly normal Mood: congruent mood Affect: normal affect Speech and Movement: speech and movement normal Attitude: cooperative Coding Level of Care Code Off vis,est,level 4 Diagnoses Strain of left knee S86.912A Assessment and Plan Assessment and Plan (1) Strain of left knee: Status: Acute Plan: Left knee radiographs taken today reveal no acute osseous pathology per my review, pending radiologist interpretation time patient discharged. Off work rest of shift today, returning to work tomorrow sitting duties only as noted on today's [employer] 14. Supportive measures including rest, ice, elevate, home range of motion exercises, and Yung wrap as dispensed/instructed today. [facility] with the [facility] in 2 business days for reevaluation, sooner should symptoms worsen or any other concerns develop. Patient states acknowledging understanding all the above. This note was generated with [employer] dictation software. It may contain incorrect words, spelling, and punctuation that were not noted in checking the note before signing. Orders: Orders Knee 4 or More Views Today T14.8XXA - Other injury of unspecified body region, initial encounter 08/11/24 1403 Date Seferino Huang Signature: Date (if applicable) CC: Normal [facility] CNOVon 07-26-2024 CNOV Office Visit ([facility] ) SEAN PAPPAS ([id number]) 1995 M Date Time Provider Department 07/26/24 10:30 AM ANA PAULA GRULLON [facility] During your visit today, we recorded the following information about you: Temperature Pulse Respiration Blood pressure 98.5 degrees 103/minute 16/minute 142/110 Weight 98.9 kg Ana Paula Grullon PA 07/26/2024 10:53 AM Signed This note was created using [employer]. Subjective Sean Pappas is a 29 year old male. HPI 29-year-old male presents for left ear pain. Patient states he has had left ear pain, difficulty hearing from the ear, x 1 week. He denies any fevers. No cough or runny nose. No sore throat. Still eating and drinking. He has had issues with his ear in the past. He has not tried anything [id number]-ano-[id number] for symptoms. No other complaint PAST MEDICAL HISTORY Diagnosis Date ADHD (attention deficit hyperactivity disorder) Anger Anxiety Bipolar disorder (HCC) Cervicalgia 04/13/2018 Left shoulder pain 04/13/2018 PAST SURGICAL HISTORY Procedure Laterality Date NONE ALLERGIES Amoxicillin, Bees, and Penicillins MEDICATIONS EPINEPHrine (EPIPEN) 0.3 mg/0.3 mL auto-injector Inject 0.3 mg intramuscularly as needed. azelastine 0.1% nasal spray Use 1 [place] in each nostril two times a day. sodium chloride (SALINE NASAL) 0.65 % nasal spray Use 2 Sprays in the nose as needed. gabapentin (NEURONTIN) 400 mg capsule Take 1 capsule by mouth four times daily. QUEtiapine (SEROQUEL) 50 mg tablet Take 50 mg by mouth twice daily. doxycycline monohydrate 100 mg tablet Take 1 tablet by mouth two times a day for 7 days. benzonatate (TESSALON PERLES) 100 mg capsule Take 1 capsule by mouth three times a day as needed for cough. (Patient not taking: Reported on 07/26/2024) Brompheniramine-Pseud oeph-DM (BROMFED DM) 2-30-10 mg/5 mL syrup Take 5 mL by mouth four times a day as needed. (Patient not taking: Reported on 07/26/2024) FAMILY HISTORY Problem Relation Age of Onset other (ADHD [Other]) Father other (Ovarian Cyst [Other]) Mother mood disorders Hypertension Maternal Grandfather Social History Tobacco Use Smoking status: Some Days Current packs/day: 0.00 Types: Cigarettes Last attempt to quit: 10/28/2011 Years since quittin.7 Smokeless tobacco: Never Tobacco comments: 1-2 cigarettes per day Vaping Use Vaping status: Never Used Substance Use Topics Alcohol use: Yes Comment: drinks on hhxdvvbi-[id number] beers Drug use: Yes Types: Marijuana Comment: last marijuana use was 06/2016 Review of Systems Constitutional: Negative for chills and fever. HENT: Positive for ear pain. Negative for congestion and sore throat. Respiratory: Negative for cough and shortness of breath. Gastrointestinal: Negative for diarrhea and vomiting. Objective BP 130/108 Pulse 103 Temp 36.9 ?C (98.5 ?F) (Right Tympanic) Resp 16 Wt 98.9 kg (218 lb 0.6 oz) SpO2 98% BMI 29.57 kg/m? Physical Exam Vitals and nursing note reviewed. Constitutional: General: He is not in acute distress. Appearance: Normal appearance. He is not toxic-appearing. HENT: Right Ear: Tympanic membrane and ear canal normal. Left Ear: A middle ear effusion is present. Tympanic membrane is erythematous. Nose: Nose normal. Mouth/Throat: Mouth: Mucous membranes are moist. Eyes: Conjunctiva/sclera: Conjunctivae normal. Cardiovascular: Rate and Rhythm: Normal rate and regular rhythm. Pulmonary: Effort: Pulmonary effort is normal. Breath sounds: Normal breath sounds. Skin: General: Skin is warm and dry. Neurological: Mental Status: He is alert. Assessment and Plan ASSESSMENT/PLAN: 1. Acute otitis media, left - ICD9: 382.9, ICD10: H66.92 (primary diagnosis) - Will begin treatment with Doxycycline - The patient should also be given OTC decongestants prn for the first 5-7 days of treatment. - Supportive care with plenty of fluids, rest, and analgesia prn. 2. Elevated blood pressure reading without diagnosis of hypertension - ICD9: 796.2, ICD10: R03.0 -Blood pressure elevated today. Asymptomatic. Patient states he has been told in the past that he is elevated blood pressure. -Advised patient to schedule follow-up with PCP and keep a blood pressure log at home. Diagnosis and treatment plan were discussed and questions were answered to the patient's satisfaction. Pt acknowledged understanding of concepts and follow up plan. Specific signs and symptoms that would indicate the need for higher level of care were discussed in detail warranting prompt ER evaluation. RAVI Cifuentes Allergies As of Date: 07/26/2024 Noted Allergy Reaction AMOXICILLIN 08/02/2005 4 - Hives BEES 08/02/2005 4 - Hives PENICILLINS 08/02/2005 4 - Hives Date Reviewed: 07/26/2024 Reviewed by: Codie Aguilar MA - Fully Assessed Reason for Visit: Ear Problem [38 (more content not included)... Normal [facility] Basic Metabolic Profile (BMP )on 04-13-2024 BUN/CRE 21.6 RATIO High - [facility] Comment on above: Performed By: #### L 100.0100, L500.2500 ####[facility] [address] [place], [address] CA,Total 8.7 mg/dL Normal 8.5-10.1 [facility] Comment on above: Performed By: #### L 100.0100, L500.2500 ####[facility] [address] [place], [address] Chloride [Moles/Vol] 103 mmol/L Normal 98-107 [facility] Comment on above: Performed By: #### L 100.0100, L500.2500 ####[facility] [address] [place], [address] CO2 [Moles/Vol] 24.0 mmol/L Normal 21.0-32.0 [facility] Comment on above: Performed By: #### L 100.0100, L500.2500 ####[facility] [address] [place], [address] Creatinine [Mass/Vol] 1.16 mg/dL Normal 0.70-1.30 [facility] Comment on above: Result Comment: The validity of the calculated GFR GFRAA in patients over 70 years has not been determined. Clinical correlation is essential. Performed By: #### L 100.0100, L500.2500 ####[facility] [address] [place], [address] ECRCL 114.94 ml/min Normal [facility] Comment on above: Performed By: #### L 100.0100, L500.2500 ####[facility] [address] [place], [address] EST GFR - AA 96 mL/min Normal >60 [facility] Comment on above: Result Comment: Afri can [place] GFR Calc Performed By: #### L 100.0100, L500.2500 ####[facility] [address] [place], [address] GAP 7 Normal 5-15 [facility] Comment on above: Performed By: #### L 100.0100, L500.2500 ####[facility] [address] [place], [address] GFR/1.73 sq M.predicted among non-blacks MDRD (S/P/Bld) [Vol rate/Area] 79 mL/min/{1.73_m2} Normal >60 [facility] Comment on above: Result Comment: Non- GFR Calc Performed By: #### L 100.0100, L500.2500 ####[facility] [address] [place], [address] Glucose [Mass/Vol] 90 mg/dL Normal 74-106 [facility] Comment on above: Performed By: #### L 100.0100, L500.2500 ####[facility] [address] [place], [address] Potassium [Moles/Vol] 4.3 mmol/L Normal 3.5-5.1 [facility] Comment on above: Performed By: #### L 100.0100, L500.2500 ####[facility] [address] [place], [address] Sodium [Moles/Vol] 134 mmol/L Low 136-145 [facility] Comment on above: Performed By: #### L 100.0100, L500.2500 ####[facility] [address] [place], [address] Urea nitrogen [Mass/Vol] 25 mg/dL High 7-18 [facility] Comment on above: Performed By: #### L 100.0100, L500.2500 ####[facility] [address] [place], [address] CBC W/Diff, Automatedon 03-27 Absolute Lymph 2.29 X10 3/uL Normal 0.83-4.51 [facility] Comment on above: Performed By: #### L 100.0100, L500.2500 #### [facility] [address] [place], [address] Absolute Neut 4.2 X10 3/uL Normal 2.0-7.7 [facility] Comment on above: Performed By: #### L 100.0100, L500.2500 #### [facility] [address] [place], [address] Basophils/100 WBC (Bld) 0.4 % Normal 0-1 [facility] Comment on above: Performed By: #### L 100.0100, L500.2500 #### [facility] [address] [place], [address] Eosinophils/100 WBC (Bld) 1.3 % Normal 0-5 [facility] Comment on above: Performed By: #### L 100.0100, L500.2500 #### [facility] [address] [place], [address] Erythrocyte distribution width (RBC) [Ratio] 12.3 % Normal 11.6-14.6 [facility] Comment on above: Performed By: #### L 100.0100, L500.2500 #### [facility] [address] [place], [address] Hematocrit (Bld) [Volume fraction] 46.8 % Normal 40-54 [facility] Comment on above: Performed By: #### L 100.0100, L500.2500 #### [facility] [address] [place], [address] Hemoglobin (Bld) [Mass/Vol] 16.0 g/dL Normal 13.0-16.5 [facility] Comment on above: Performed By: #### L 100.0100, L500.2500 #### [facility] [address] [place], [address] IG% 0.400 Normal 0.0-0.9 [facility] Comment on above: Result Comment: IG% - Immature Granulocytes (promyelocytes, myelocytes and metamyelocytes) > 1% indicates that a LEFT SHIFT is Present. Performed By: #### L 100.0100, L500.2500 #### [facility] [address] [place], [address] Lymphocytes/100 WBC (Bld) 30.9 % Normal 19-41 [facility] Comment on above: Performed By: #### L 100.0100, L500.2500 #### [facility] [address] [place], [address] MCH (RBC) [Entitic mass] 31.1 pg Normal 27.0-32.0 [facility] Comment on above: Performed By: #### L 100.0100, L500.2500 #### [facility] [address] [place], [address] MCHC (RBC) [Mass/Vol] 34.2 g/dL Normal 32-36 [facility] Comment on above: Performed By: #### L 100.0100, L500.2500 #### [facility] [address] [place], [address] MCV (RBC) [Entitic vol] 91.1 fL Normal 80-94 [facility] Comment on above: Performed By: #### L 100.0100, L500.2500 #### [facility] [address] [place], [address] Monocytes/100 WBC (Bld) 10.7 % High 0-10 [facility] Comment on above: Performed By: #### L 100.0100, L500.2500 #### [facility] [address] [place], [address] Neutrophils/100 WBC (Bld) 56.3 % Normal 47-70 [facility] Comment on above: Performed By: #### L 100.0100, L500.2500 #### [facility] [address] [place], [address] Nucleated RBC (Bld) [#/Vol] 0 10*3/uL Normal 0-5 [facility] Comment on above: Performed By: #### L 100.0100, L500.2500 #### [facility] [address] [place], [address] Platelet mean volume (Bld) [Entitic vol] 9.9 fL Normal 6.2-12.0 [facility] Comment on above: Performed By: #### L 100.0100, L500.2500 #### [facility] [address] [place], [address] Platelets (Bld) [#/Vol] 210 10*3/uL Normal 150-450 [facility] Comment on above: Performed By: #### L 100.0100, L500.2500 #### [facility] [address] [place], [address] RBC (Bld) [#/Vol] 5.14 10*6/uL Normal 4.6-6.2 [facility] Comment on above: Performed By: #### L 100.0100, L500.2500 #### [facility] [address] [place], [address] RDW SD 40.3 fl Normal 35.1-43.9 [facility] Comment on above: Performed By: #### L 100.0100, L500.2500 #### [facility] [address] [place], [address] WBC (Bld) [#/Vol] 7.4 10*3/uL Normal 4.4-11.0 [facility] Comment on above: Performed By: #### L 100.0100, L500.2500 #### [facility] [address] [place], [address] CNOVon 04-13-2024 [facility] SEAN [facility] ([id number]) 1995 M Date Time Provider Department 04/13/24 2:15 PM MASTER HERNANDEZ [facility] During your visit today, we recorded the following information about you: Temperature Pulse Respiration Blood pressure 98.2 degrees 118/minute 16/minute 138/84 Weight 98 kg Master Hernandez APRN.APPAREL CUTTER 04/13/2024 1:59 PM Signed She came and said he feels very weak dizzy and lightheaded. Patient says he feels like he is extremely dehydrated. 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 Patient says he feels like he is going to pass out. Patient does not appear to be in distress at this time. Patient was instructed to go to the ER for full evaluation and rehydration. Patient's significant other will take him. Allergies As of Date: 04/13/2024 Noted Allergy Reaction AMOXICILLIN 08/02/2005 4 - Hives BEES 08/02/2005 4 - Hives PENICILLINS 08/02/2005 4 - Hives Date Reviewed: 01/12/2024 Reviewed by: Marciano Robert APRN.APPAREL CUTTER - Fully Assessed Reason for Visit: Rash [1087] Cmt: Rash on neck, weak, dizzy and feels dehydrated x 1 day Primary Visit Diagnosis:Dizziness [R42] Prescriptions as of 04/13/2024 - benzonatate (TESSALON PERLES) 100 mg capsule Take 1 capsule by mouth three times a day as needed for cough. - Brompheniramine-Pseud oeph-DM (BROMFED DM) 2-30-10 mg/5 mL syrup Take 5 mL by mouth four times a day as needed. - azelastine 0.1% nasal spray Use 1 [place] in each nostril two times a day. - sodium chloride (SALINE NASAL) 0.65 % nasal spray Use 2 Sprays in the nose as needed. - gabapentin (NEURONTIN) 400 mg capsule Take 1 capsule by mouth four times daily. - QUEtiapine (SEROQUEL) 50 mg tablet Take 50 mg by mouth twice daily. Problem List As Of Date 04/13/2024 Noted Resolved Left shoulder pain [M25.512] 04/13/2018 02/06/2023 Cervicalgia [M54.2] 04/13/2018 02/06/2023 Encounter Status:Closed by MASTER HERNANDEZ on 04/13/24 Normal [facility] Emergency Department Summary on 04-13-2024 Emergency Department [facility] [address] [place] [id number] Emergency Department Summary 04/13/24 MR#: [id number] Acct: [id number] Name: SEAN PAPPAS Rep #: [id number] : 1995 28 From: Micehle Roman DO PCP: Care Physician,No Primary Status:DEP ER Location: ED HPI History of Present Illness Chief Complaint: Weakness Detail of Chief Complaint: Generalized weakness and concern for heatstroke Informant: patient Narrative Narrative: Patient presents to the emergency department with concern for possible heatstroke. 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 Factory was about 100 degrees. He had been working for about 2 hours. Patient states that he then went to the break room and immediately developed a headache and nausea and generalized weakness. Patient denies recent illness. He denies fever or cough. Denies chest pain or shortness of breath. [facility] Medical History Strain of right hand Strain of right wrist Home Medications ???Medication ???Instructions ???Recorded ???Last Taken ???Type Quetiapine Fumarate [Seroquel Xr] 50 mg PO QHS 11/19/20 Unknown History gabapentin 400 mg capsule 400 mg PO Q6H 12/20/22 Unknown History Allergy/AdvReac Type Severity Reaction Status Date / Time amoxicillin (Amoxicillin) Allergy Hives Verified 04/13/24 14:05 bee venom protein (honey bee) Allergy Angioedema Verified 04/13/24 14:05 Penicillins Allergy Hives Verified 04/13/24 14:05 Social History Smoking Status: Current every day smoker tobacco type: cigarettes ROS ROS ED Review of Systems ROS Unobtainable: other Constitutional Constitutional ED: Reports lethargy; Denies chills, fever(s), sweats or weight loss Eyes Eyes: Denies blurry vision, change in vision or diplopia ENT ENT ED: Denies rhinorrhea or sore throat Cardiovascular Cardiovascular: Denies chest pain, orthopnea or racing heartbeat Respiratory/Chest Respiratory/Chest: Denies cough, dyspnea, dyspnea on exertion, orthopnea or sputum Gastrointestinal Gastrointestinal: Reports nausea; Denies abdominal pain, diarrhea or vomiting Genitourinary Genitourinary ED: Denies dysuria, hematuria or urinary frequency Musculoskeletal Musculoskeletal: Denies arthralgias, back pain, myalgias or neck pain Integumentary Denies abscess, Abrasions or rash Neurologic Neurologic: Reports headache(s) and weakness Psychiatric Psychiatric: Denies anxiety, depression or suicidal thoughts Endocrine Endocrinology: Denies polydipsia, polyphagia or polyuria Hematologic/Lymphatic Hematologic/Lymphatic : Denies easy bleeding, easy bruising or lymphadenopathy Allergic/Immunologic Allergic/Immunologic ED: Denies mouth swelling, tongue swelling or urticaria EXAM Physical Exam Const Vital Signs: 04/13/24 14:05 04/13/24 14:29 04/13/24 14:29 Temperature 98.2 F Temperature Source Temporal Pulse Rate 112 H Pulse Rate [Lying] 102 H Pulse Rate [Sitting (for 1 minute prior to obtaining)] 106 H Pulse Rate [Standing (for 1 minute prior to obtaining)] 120 H Respiratory Rate 18 Respiratory Effort Normal Respiratory Pattern Normal Blood Pressure 124/105 H Blood Pressure [Lying] 121/83 H Blood Pressure [Sitting (for 1 minute prior to obtaining)] 131/97 H Blood Pressure [Standing (for 1 minute prior to obtaining)] 121/99 H Blood Pressure Mean 111 Blood Pressure Mean [Lying] 95 Blood Pressure Mean [Sitting (for 1 minute prior to obtaining)] 108 Blood Pressure Mean [Standing (for 1 minute prior to obtaining)] 106 Pulse Ox 96 Oxygen Delivery Method Room Air Positive well nourished and well developed General Appearance ED: well developed and NAD HEENT Reports TM's clear and moist mucous membranes normocephalic and atraumatic; Negative for trauma or tenderness Tympanic Membrane ED: Yes TM's clear Eyes PERRL and EOMs intact bilaterally General Eye ED: Negative for pale conjunctiva or scleral icterus Neck no lymphadenopathy, supple and no JVD General: Negative for tenderness Chest Wall inspection of chest normal and palpation of chest normal Chest: Negative for tenderness Resp normal respiratory effort and clear to auscultation bilaterally Effort and Inspection: Negative for respiratory distress or pain with movement Auscultation: Negative for rhonchi, wheezes or diminished lung sounds Cardio regular rate, regular rhythm, S1 normal heart sound, S2 normal heart sound and no murmurs Peripheral Pulses: pulses 2+ throughout GI normal to inspection, nondistended, normoactive bowel sounds, soft to palpation, non-tender, non- distended and no (more content not included)... Normal [facility] Absolute lymphocyte countOrd ered By: Dr. Pinto on 03-05-2023 Lymphocytes Auto (Unsp spec) [#/Vol] 1.86 10*3/uL 0.83-4.51 [facility] Basophil percentageOrdered B y: Dr. Pinto on 03-05-2023 Basophils/100 WBC (Bld) 0.7 % 0-1 [facility] Chloride [Moles/Vol] 109 mmol/L 98-107 [facility] Eosinophils/100 WBC (Bld) 2.3 % 0-5 [facility] Glucose [Mass/Vol] 100 mg/dL 74-106 [facility] Comment on above: Fasting Glucose resu lt from 100 to 125 mg/dL suggests IMPAIRED HOMEOSTASIS per A.D.A. criteria. Neutrophils (Bld) [#/Vol] 3.1 10*3/uL 2.0-7.7 [facility] Neutrophils/100 WBC (Bld) 54.1 % 47-70 [facility] Potassium [Moles/Vol] 4.0 mmol/L 3.5-5.1 [facility] Sodium [Moles/Vol] 142 mmol/L 136-145 [facility] WBC (Bld) [#/Vol] 5.8 10*3/uL 4.4-11.0 [facility] Blood erythrocytes count (nu mber/volume)Ordered By: Dr. Pinto on 03-05-2023 RBC (Bld) [#/Vol] 5.39 10*6/uL 4.6-6.2 [facility] Blood hemoglobin measurement (mass/volume)Ordered By: Dr. Pinto on 03-05-2023 Hemoglobin (Bld) [Mass/Vol] 16.8 g/dL 13.0-16.5 [facility] Blood lymphocytes/100 leukoc ytesOrdered By: Dr. Pinto on 03-05-2023 Lymphocytes/100 WBC (Bld) 32.2 % 19-41 [facility] Blood monocytes/100 leukocyt esOrdered By: Dr. Pitno on 03-05-2023 Monocytes/100 WBC (Bld) 10.4 % 0-10 [facility] Blood platelet mean volumeOr dered By: Dr. Pinto on 03-05-2023 Platelet mean volume (Bld) [Entitic vol] 9.3 fL 6.2-12.0 [facility] Determination of erythrocyte mean corpuscular volume (MCV)Ordered By: Dr. Pinto on 03-05-2023 MCV (RBC) [Entitic vol] 89.8 fL 80-94 [facility] Hematocrit Auto (Bld) [Volum e fraction]Ordered By: Dr. Pinto on 03-05-2023 Hematocrit (Bld) [Volume fraction] 48.4 % 40-54 [facility] - Chemistry and C hemistry - challengeOrdered By: Dr. Pinto on 03-05-2023 CO2 [Moles/Vol] 28.0 mmol/L 21.0-32.0 [facility] Urea nitrogen/Creatinine [Mass ratio] 12.4 mg/mg 10-20 [facility] - Hematology and Cell countsOrdered By: Dr. Pinto on 03-05-2023 Erythrocyte distribution width (RBC) [Entitic vol] 38.4 fL 35.1-43.9 [facility] Erythrocyte distribution width (RBC) [Ratio] 11.9 % 11.6-14.6 [facility] Immature granulocytes/100 WBC (Bld) 0.300 % 0.0-0.9 [facility] Comment on above: IG% - Immature Granu locytes (promyelocytes, myelocytes and metamyelocytes) > 1% indicates that a LEFT SHIFT is Present. MCH (RBC) [Entitic mass] 31.2 pg 27.0-32.0 [facility] Nucleated RBC/100 WBC (Bld) [Ratio] 0 % 0-5 [facility] MCHC Auto (RBC) [Mass/Vol]Or dered By: Dr. Pinto on 03-05-2023 MCHC (RBC) [Mass/Vol] 34.7 g/dL 32-36 [facility] No Panel InformationOrdered By: Dr. Pinto on 03-05-2023 Estimated Creatinine Clearance Calc 125.56 ml/min [facility] Estimated GFR (MDRD) Amer 119 mL/min >60 [facility] Comment on above: GFR Calc Estimated GFR (MDRD) Non-Af Amer 98 mL/min >60 [facility] Comment on above: Non- GFR Calc Platelets bldOrdered By: Dr. Pinto on 03-05-2023 Platelets (Bld) [#/Vol] 240 10*3/uL 150-450 [facility] Serum or plasma calcium piyush urement (mass/volume)Ordered By: Dr. Pinto on 03-05-2023 Calcium [Mass/Vol] 8.9 mg/dL 8.5-10.1 [facility] Serum or plasma creatinine m easurement (mass/volume)Ordered By: Dr. Pinto on 03-05-2023 Creatinine [Mass/Vol] 0.97 mg/dL 0.70-1.30 [facility] Comment on above: The validity of the calculated GFR & GFRAA in patients over 70 years has not been determined. Clinical correlation is essential. Serum or plasma urea nitroge n measurement (mass/volume)Ordered By: Dr. Pinto on 03-05-2023 Urea nitrogen [Mass/Vol] 12 mg/dL 7-18 [facility] Thin prep Papanicolaou smear with manual screeningOrdered By: Dr. Pinto on 03-05-2023 Thin prep Papanicolaou smear with manual screening 5 -15 [facility] EMERGENCY REPORTon 2 EMERGENCY REPORT [facility] EMERGENCY ROOM REPORT NAME ACCOUNT SEX AGE ADMIT DISCHARGE PT MED. RECORD# NUMBER DATE DATE TYPE SEAN PAPPAS [id number] M 27 09/02/22 09/02/22 3 R [id number] ROOM: ER DATE OF : 1995 DICTATING PHYSICIAN: Cesario Damon CHIEF COMPLAINT: Dental pain. HISTORY OF PRESENT ILLNESS: The patient over the last 3 to 4 days has had increasing pain. It seems to be focused to the posterior dental area on the left, though he does have some discomfort elsewhere. He does noticeably worse with chewing and biting. He has noticed some swelling to the left jaw and neck area. He has not had fever or chills, nausea or vomiting. He does have a dentist appointment scheduled for tomorrow. No dental injury or trauma. No nausea or vomiting. PAST MEDICAL HISTORY: He was told he had a heart murmur in the past. History of anxiety, depression, bipolar disorder. PAST SURGICAL HISTORY: No previous surgeries. MEDICATIONS: Per med rec list. ALLERGIES: Penicillin and amoxicillin. SOCIAL HISTORY: Patient lives at home. He does smoke. He drinks alcohol occasionally. He uses cannabis occasionally. REVIEW OF SYSTEMS: No recent injury or trauma. Otherwise negative as mentioned. PHYSICAL EXAMINATION: The patient is a 27-year-old well nourished, developed male. Alert and appropriate. Does not appear toxic or in acute distress. Skin is pink, warm and dry. No scalp tenderness. He has tenderness along the left cheek and mandible area. I really cannot appreciate significant soft tissue swelling in that area. He has tenderness anterior to the left ear and along the angle of the left jaw with some adenitis. I really cannot appreciate significant adenopathy. There is no redness or induration present there. Minimal discomfort along the right. TM's and canals are normal. Nose is normal. Intraoral exam shows noticeably bad breath. Impacted third molars to the upper and lower left jaw with some minimally scattered caries. There is no significant gingival redness or purulent drainage. No significant gingival swelling. Throat otherwise appears normal without asymmetry. No peritonsillar redness or exudate. Neck is supple. No posterior cervical adenopathy. Lungs are clear. No respiratory distress. Cardiac exam shows regular rhythm. Vital signs: Temp 98.1, Page 1 of 2 SEAN PAPPAS Emergency Room Report SEAN PAPPAS Parker : 1995 pulse 93, respirations 18, blood pressure 151/113. O2 saturation is 97% on room air. DIAGNOSIS: 1. Impacted third molars. 2. Dental pain. 3. Elevated blood pressure. PLAN/DISPOSITION: He was given a prescription for clindamycin. I gave him some Toradol for pain. Recommended OTC acetaminophen. He is to follow up with dentist as scheduled tomorrow. Return if symptoms worsen. Dictated By: Cesario Damon MD 09/02/22 09:49 JOB #: [id number] Transcribed By: moises 09/02/22 21:19 Electronically signed by: KIMMIE Damon M.D. 09/09/22 08:17 Page 2 of 2 SEAN PAPPAS Emergency Room Report [facility] PROGRESSon 04-13-2018 PROGRESS HNO ID: [id number]: Coni Rice (Ct) CTService: (none)Author Type: Clinical TechnicianType: Progress NotesFiled: 04/13/2018 4:30 PMNote Text:NAME:Sean PappasDATE: April 13, 2018CCF#: [id number] X-Ray(s): Cervical AP / LAT / OBL COMPLETEDTECH ID SIGN: CONI RICE [facility] XR CERVICAL 4V AP/LAT/OBLon 04-13-2018 XR CERVICAL 4V AP/LAT/OBL * * *Final Report* * *DATE OF EXAM: Apr 13 2018 3:56PM BANDAR [id number] - XR CERVICAL 4V AP/LAT/OBL / REASON: multiple diagnoses * * * * Physician Interpretation * * * * EXAM TITLE: XR CERVICAL 4V AP/LAT/OBLEXAM DATE/TIME: 04/13/2018 3:56 PMCOMPARISON: None.CLINICAL INDICATION/HISTORY: Neck painTECHNIQUE: AP, lateral, and oblique views of the cervical spine are presented.FINDINGS:No fractures or subluxations are noted.The disc spaces are well preserved.There is no significant osteophyte formation.The neural foramina are patent.The prevertebral soft tissues are normal.IMPRESSION: Negative cervical spine.Transcriptionis t: PSCB Transcribe Date/Time: Apr 13 2018 4:49PDictated by : MIRIAM MCCAIN MDThilizbet examination was interpreted and the report reviewed and electronically signed by: MIRIAM MCCAIN MD on Apr 13 2018 4:55PM [id number] [facility] Vital Signs Date Time Vital Sign Value Performing Clinician Faci linday 01-04-2025 09:03-0400 Body mass index (BMI) [Ratio] 30.8 kg/m2 Martina Ritchie [employer] Work Phone: [facility] 01-04-2025 09:03-0400 Body temperature 97.3 [degF] Martina Ritchie [employer] Work Phone: [facility] 01-04-2025 09:03-0400 Body weight 103 kg Martina Ritchie [employer] Work Phone: [facility] 01-04-2025 09:03-0400 Diastolic blood pressure 80 mm[Hg] Martina Ritchie [employer] Work Phone: [facility] 01-04-2025 09:03-0400 Heart rate 102 /min Martina Ritchie [employer] Work Phone: [facility] 01-04-2025 09:03-0400 Respiratory rate 16 /min Martina Ritchie [employer] Work Phone: [facility] 01-04-2025 09:03-0400 SaO2% (BldA) [Mass fraction] 98 % Martina Ritchie [employer] Work Phone: [facility] 01-04-2025 09:03-0400 Systolic blood pressure 124 mm[Hg] Martinajim Ritchie [employer] Work Phone: [facility] 07-26-2024 10:54-0400 Diastolic blood pressure 110 mm[Hg] Krislyn Aberegg PA Work Phone: [facility] 07-26-2024 10:54-0400 Systolic blood pressure 142 mm[Hg] Krislyn Aberegg PA Work Phone: [facility] 07-26-2024 10:41-0400 Body mass index (BMI) [Ratio] 29.57 kg/m2 Krislyn Aberegg PA Work Phone: [facility] 07-26-2024 10:41-0400 Body temperature 98.49 [degF] Krislyn Aberegg PA Work Phone: [facility] 07-26-2024 10:41-0400 Body weight 98.9 kg Krislyn Aberegg PA Work Phone: [facility] 07-26-2024 10:41-0400 Heart rate 103 /min Krislyn Aberegg PA Work Phone: [facility] 07-26-2024 10:41-0400 Respiratory rate 16 /min Krislyn Aberegg PA Work Phone: [facility] 07-26-2024 10:41-0400 SaO2% (BldA) [Mass fraction] 98 % Krislyn Aberegg PA Work Phone: [facility] 04-13-2024 13:49-0400 Body mass index (BMI) [Ratio] 29.3 kg/m2 Master Hernandez APRN.[employer] Work Phone: [facility] 04-13-2024 13:49-0400 Body temperature 98.2 [degF] Master Hernandez APRN.[employer] Work Phone: [facility] 04-13-2024 13:49-0400 Body weight 98 kg Mastereduin Hernandez APRN.[employer] Work Phone: [facility] 04-13-2024 13:49-0400 Diastolic blood pressure 84 mm[Hg] Master Hernandez APRN.[employer] Work Phone: [facility] 04-13-2024 13:49-0400 Heart rate 118 /min Master Hernandez APRN.[employer] Work Phone: [facility] 04-13-2024 13:49-0400 Respiratory rate 16 /min Master Hernandez APRN.[employer] Work Phone: [facility] 04-13-2024 13:49-0400 SaO2% (BldA) [Mass fraction] 96 % Master Hernandez APRN.[employer] Work Phone: [facility] 04-13-2024 13:49-0400 Systolic blood pressure 138 mm[Hg] Master Fei NELSON.[employer] Work Phone: [facility] 08-25-2023 16:15-0400 Body temperature 98.1 [degF] Maykel Houser MD Work Phone: [facility] 08-25-2023 16:15-0400 Body weight 96.98 kg Maykel Houser MD Work Phone: [facility] 08-25-2023 16:15-0400 Diastolic blood pressure 68 mm[Hg] Maykel Houser MD Work Phone: [facility] 08-25-2023 16:15-0400 Heart rate 100 /min Maykel Houser MD Work Phone: [facility] 08-25-2023 16:15-0400 Respiratory rate 20 /min Maykel Houser MD Work Phone: [facility] 08-25-2023 16:15-0400 SaO2% (BldA) [Mass fraction] 99 % Maykel Houser MD Work Phone: [facility] 08-25-2023 16:15-0400 Systolic blood pressure 122 mm[Hg] Maykel Houser MD Work Phone: [facility] 06-22-2023 01:12-0400 Body height 182.88 cm [facility] 06-22-2023 01:12-0400 Body mass index (BMI) [Ratio] 29.8 kg/m2 [facility] 06-22-2023 01:12-0400 Body temperature 97.8 [degF] [facility] 06-22-2023 01:12-0400 Body weight 99.79 kg [facility] 06-22-2023 01:12-0400 Diastolic blood pressure 116 mm[Hg] [facility] 06-22-2023 01:12-0400 Heart rate 118 /min [facility] 06-22-2023 01:12-0400 Respiratory rate 16 /min [facility] 06-22-2023 01:12-0400 SaO2% (BldA) [Mass fraction] 99 % [facility] 06-22-2023 01:12-0400 Systolic blood pressure 157 mm[Hg] [facility] 05-21-2023 16:04-0400 Body temperature 98.71 [degF] Krislyn Aberegg PA Work Phone: [facility] 05-21-2023 16:04-0400 Body weight 97.98 kg Krislyn Aberegg PA Work Phone: [facility] 05-21-2023 16:04-0400 Diastolic blood pressure 68 mm[Hg] Krislyn Aberegg PA Work Phone: [facility] 05-21-2023 16:04-0400 Heart rate 120 /min Krislyn Aberegg PA Work Phone: [facility] 05-21-2023 16:04-0400 Respiratory rate 18 /min Krislyn Aberegg PA Work Phone: [facility] 05-21-2023 16:04-0400 SaO2% (BldA) [Mass fraction] 95 % Ana Paula RODRIGUES Work Phone: [facility] 05-21-2023 16:04-0400 Systolic blood pressure 118 mm[Hg] Ana Paula RODRIGUES Work Phone: [facility] 04-27-2023 12:02-0400 Body height 177.8 cm [facility] 04-27-2023 12:02-0400 Body mass index (BMI) [Ratio] 31.6 kg/m2 [facility] 04-27-2023 12:02-0400 Body temperature 97 [degF] [facility] 04-27-2023 12:02-0400 Body weight 100.04 kg [facility] 04-27-2023 12:02-0400 Diastolic blood pressure 110 mm[Hg] [facility] 04-27-2023 12:02-0400 Heart rate 109 /min [facility] 04-27-2023 12:02-0400 Respiratory rate 16 /min [facility] 04-27-2023 12:02-0400 SaO2% (BldA) [Mass fraction] 98 % [facility] 04-27-2023 12:02-0400 Systolic blood pressure 132 mm[Hg] [facility] 03-10-2023 11:07-0400 Body weight 97.61 kg Chintan Chan MD Work Phone: [facility] 03-10-2023 11:07-0400 Diastolic blood pressure 78 mm[Hg] Chintan Chan MD Work Phone: [facility] 03-10-2023 11:07-0400 Heart rate 97 /min Chintan Chan MD Work Phone: [facility] 03-10-2023 11:07-0400 Respiratory rate 16 /min Chintan Chan MD Work Phone: [facility] 03-10-2023 11:07-0400 SaO2% (BldA) [Mass fraction] 97 % Chintan Chan MD Work Phone: [facility] 03-10-2023 11:07-0400 Systolic blood pressure 128 mm[Hg] Chintan Chan MD Work Phone: [facility] 03-05-2023 10:58-0400 Body height 182.88 cm No Primary Care Physician [facility] 03-05-2023 10:58-0400 Body mass index (BMI) [Ratio] 28.8 kg/m2 No Primary Care Physician [facility] 03-05-2023 10:58-0400 Body temperature 98 [degF] No Primary Care Physician [facility] 03-05-2023 10:58-0400 Body weight 96.34 kg No Primary Care Physician [facility] 03-05-2023 10:58-0400 Diastolic blood pressure 102 mm[Hg] No Primary Care Physician [facility] 03-05-2023 10:58-0400 Heart rate 105 /min No Primary Care Physician [facility] 03-05-2023 10:58-0400 Respiratory rate 18 /min No Primary Care Physician [facility] 03-05-2023 10:58-0400 SaO2% (BldA) [Mass fraction] 100 % No Primary Care Physician [facility] 03-05-2023 10:58-0400 Systolic blood pressure 140 mm[Hg] No Primary Care Physician [facility] 02-06-2023 15:50-0400 Body temperature 99.1 [degF] Fredy Sánchez MD Work Phone: [facility] 02-06-2023 15:50-0400 Body weight 95.62 kg Fredy Sánchez MD Work Phone: [facility] 02-06-2023 15:50-0400 Diastolic blood pressure 83 mm[Hg] Fredy Sánchez MD Work Phone: [facility] 02-06-2023 15:50-0400 Heart rate 116 /min Fredy Sánchez MD Work Phone: [facility] 02-06-2023 15:50-0400 Respiratory rate 16 /min Fredy Sánchez MD Work Phone: [facility] 02-06-2023 15:50-0400 SaO2% (BldA) [Mass fraction] 94 % Fredy Sánchez MD Work Phone: [facility] 02-06-2023 15:50-0400 Systolic blood pressure 132 mm[Hg] Fredy Sánchez MD Work Phone: [facility] 01-06-2023 13:09-0400 Body temperature 97.2 [degF] Maykel Houser MD Work Phone: [facility] 01-06-2023 13:09-0400 Body weight 96.34 kg Maykel Houser MD Work Phone: [facility] 01-06-2023 13:09-0400 Diastolic blood pressure 100 mm[Hg] Maykel Houser MD Work Phone: [facility] 01-06-2023 13:09-0400 Heart rate 100 /min Maykel Houser MD Work Phone: [facility] 01-06-2023 13:09-0400 Respiratory rate 21 /min Maykel Houser MD Work Phone: [facility] 01-06-2023 13:09-0400 SaO2% (BldA) [Mass fraction] 98 % Maykel Houser MD Work Phone: [facility] 01-06-2023 13:09-0400 Systolic blood pressure 122 mm[Hg] Maykel Houser MD Work Phone: [facility] 11-04-2022 15:09-0500 Body height 180.34 cm [facility] 11-04-2022 15:09-0500 Body mass index (BMI) [Ratio] 29.9 kg/m2 [facility] 11-04-2022 15:09-0500 Body temperature 97.7 [degF] [facility] 11-04-2022 15:09-0500 Body weight 97.52 kg [facility] 11-04-2022 15:09-0500 Diastolic blood pressure 105 mm[Hg] [facility] 11-04-2022 15:09-0500 Heart rate 103 /min [facility] 11-04-2022 15:09-0500 Respiratory rate 16 /min [facility] 11-04-2022 15:09-0500 SaO2% (BldA) [Mass fraction] 99 % [facility] 11-04-2022 15:090500 Systolic blood pressure 152 mm[Hg] [facility] Encounters Encounter Date Encounter Type Care Provider Facility Start: 04-07-2025 End: 04-07-2025 Telemedicine consultation with patient Memo Sandoval [employer]LIE[employer]MIGUEL Work Phone: Telemedicine Comment on above: Acute cough (Primary Dx); Encounter to obtain excuse from work Start: 04-07-2025 End: 04-07-2025 ambulatory MEMO SANDOVAL Facility:[facility] Start: 01-04-2025 End: 01-04-2025 Subsequent hospital visit by physician Xr [facility] Work Phone: Radiology Comment on above: Acute cough [R05.1] Start: 01-04-2025 End: 01-04-2025 ambulatory MARTINA RITCHIE Facility:[facility] Start: 01-04-2025 End: 01-04-2025 Patient encounter procedure Martina Ritchie [employer]ESLIE.MIGUEL Work Phone: [facility] Comment on above: Acute cough (Primary Dx); URI, acute Start: 10-13-2024 End: 10-13-2024 ambulatory MEMO SANDOVAL Facility:[facility] Start: 10-13-2024 End: 10-13-2024 Telemedicine consultation with patient Lesa Schaeffer ELMO Work Phone: Telemedicine Comment on above: Acute left ankle taylor n (Primary Dx); Return to work evaluation Start: 08-24-2024 End: 08-24-2024 Emergency department patient visit Sukhdev Sandro Facility:[facility] Start: 08-13-2024 End: 08-13-2024 ambulatory No Primary Care Physician Facility:[facility] Start: 08-12-2024 End: 08-12-2024 ambulatory MEMO SANDOVAL Facility:[facility] Start: 08-12-2024 End: 08-12-2024 Telemedicine consultation with patient Lesa Schaeffer APRCELESTINE Work Phone: Telemedicine Comment on above: Viral URI with cough (Primary Dx); Encounter to obtain excuse from work Start: 08-11-2024 End: 08-11-2024 ambulatory Seferino RODRIGUES Facility:[facility] Start: 08-11-2024 End: 08-11-2024 ambulatory Seferino RODRIGUES Facility:[facility] Start: 07-26-2024 End: 07-26-2024 ambulatory MEMO SANDOVAL Facility:[facility] Start: 07-26-2024 End: 07-26-2024 Patient encounter procedure Ana Paula Grullon PA Work Phone: [facility] Comment on above: Acute otitis media, left (Primary Dx); Elevated blood pressure reading without diagnosis of hypertension Start: 06-10-2024 End: 06-10-2024 ambulatory MEMO SANDOVAL Facility:[facility] Start: 06-10-2024 End: 06-10-2024 Telemedicine consultation with patient Ned Sher [employer]IE[employer] Work Phone: Telemedicine Comment on above: Nasal congestion (Pr imary Dx); Encounter to obtain excuse from work Start: 04-13-2024 End: 04-13-2024 Patient encounter procedure Master Fei NELSON.MIGUEL Work Phone: [facility] Comment on above: Dizziness (Primary D x) Start: 04-13-2024 End: 04-13-2024 Emergency department patient visit Michele Roman Facility:[facility] Start: 04-13-2024 End: 04-13-2024 ambulatory OLRIECATHLEEN YOBANYGUNNAR Facility:[facility] Start: 03-17-2024 End: 03-17-2024 Telemedicine consultation with patient Nelly Olvera [employer]IE[employer] Work Phone: Telemedicine Comment on above: Treatment not availa ble (Primary Dx) Viral URI with cough (Primary Dx) Start: 01-12-2024 End: 01-12-2024 ambulatory Fernanda Hyatt APRN.[employer] Work Phone: Telemedicine Comment on above: Viral URI with cough (Primary Dx) Treatment not availa ble (Primary Dx) Start: 01-12-2024 End: 01-12-2024 Telemedicine consultation with patient Fernanda Hyatt [employer] Work Phone: [facility] Start: 01-05-2024 End: 01-05-2024 ambulatory Memo Sandoval [employer] Work Phone: Telemedicine Comment on above: Nasal congestion Start: 01-05-2024 End: 01-05-2024 Telemedicine consultation with patient Memo Sandoval [employer] Work Phone: [facility] Start: 09-25-2023 End: 09-25-2023 ambulatory Memo Sandoval [employer] Work Phone: Telemedicine Comment on above: Treatment not availa ble (Primary Dx) Start: 09-25-2023 End: 09-25-2023 Telemedicine consultation with patient Memo Sandoval APRN.[employer] Work Phone: [facility] Start: 09-25-2023 End: 09-25-2023 ambulatory Faith Parker Ronni [employer] Work Phone: Telemedicine Comment on above: Procedure, test, or exam not indicated (Primary Dx) Start: 09-25-2023 End: 09-25-2023 Telemedicine consultation with patient Faith Parker Cintronjm [employer] Work Phone: [facility] Start: 08-25-2023 End: 08-25-2023 Patient encounter procedure Maykel Houser MD Work Phone: [facility] Comment on above: Gastroenteritis (Neela linda Dx) Start: 08-25-2023 End: 08-25-2023 ambulatory Luciano Rosaura PA-C Work Phone: Telemedicine Comment on above: Treatment not availa ble (Primary Dx) Start: 08-25-2023 End: 08-25-2023 Telemedicine consultation with patient Luciano Bordonaro PA-C Work Phone: [facility] Start: 07-09-2023 End: 07-09-2023 ambulatory Nelly Olvera [employer] Work Phone: Telemedicine Comment on above: Treatment not availa ble (Primary Dx) Start: 07-09-2023 End: 07-09-2023 Telemedicine consultation with patient Nelly Olvera APRN.[employer] Work Phone: [facility] Start: 07-09-2023 End: 07-09-2023 ambulatory Patti Mesa [employer] Work Phone: Telemedicine Comment on above: URI, acute (Primary Dx); Acute cough Start: 07-09-2023 End: 07-09-2023 Telemedicine consultation with patient Patti Mesa APRN.[employer] Work Phone: [facility] Start: 06-22-2023 End: 06-22-2023 [facility] Start: 05-21-2023 End: 05-21-2023 Patient encounter procedure Ana Paula RODRIGUES Work Phone: [facility] Comment on above: Gastroenteritis (Neela linda Dx) Start: 04-27-2023 End: 04-27-2023 [facility] Start: 03-10-2023 End: 03-10-2023 Patient encounter procedure Chintan Chan MD Work Phone: [facility] [place] Comment on above: BPPV (benign paroxys mal positional vertigo), unspecified laterality (Primary Dx); Elevated BP without diagnosis of hypertension Start: 03-05-2023 End: 03-05-2023 Emergency department [facility] Start: 02-06-2023 End: 02-06-2023 Patient encounter procedure Fredy Sánchez MD Work Phone: [facility] [place] Comment on above: Atypical chest pain (Primary Dx); Elevated blood pressure reading; Tachycardia Start: 01-06-2023 End: 01-06-2023 Patient encounter procedure Maykel Houser MD Work Phone: [facility] Comment on above: URI, acute (Primary Dx); Impacted cerumen of left ear Start: 12-20-2022 End: 12-20-2022 Patient encounter procedure No Primary Care Physician [facility] Start: 12-14-2022 End: 12-14-2022 ambulatory No Primary Care Physician [facility] Work Phone: Start: 12-14-2022 End: 12-14-2022 Patient encounter procedure No Primary Care Physician [facility] Start: 11-13-2022 End: 11-13-2022 Patient encounter procedure No Primary Care Physician [facility] Start: 11-06-2022 End: 11-06-2022 Patient encounter procedure No Primary Care Physician [facility] Start: 11-04-2022 End: 11-04-2022 Emergency department patient visit [facility]Emergency Department Start: 09-02-2022 End: 09-02-2022 Emergency department patient visit [facility] Start: 04-13-2018 End: 04-13-[address] [facility] Start: 07-09-2017 Ambulatory [facility] [place] Facility :B Procedures Date Procedure Procedure Detail Performing Clinician Start: 01-04-2025 Radiologic exam ches t 2 views Martina Ritchie APRN.[employer] C[employer]TER Work Phone: Start: 01-04-2025 STREP A MOLECULAR (POC) Martina Ritchie [employer] Work Phone: Start: 06-22-2023 Plain X-ray of shoulder Start: 06-22-2023 Plain x-ray of wrist Start: 06-22-2023 Radiologic examinati on of knee Start: 06-22-2023 X-ray of cervical spine Start: 04-27-2023 Radiologic examinati on of knee Start: 02-06-2023 Ecg routine ecg w/le ast 12 lds i&r only [facility] Provider Start: 12-14-2022 MRI of joint of lowe r extremity No Primary Care Physician Start: 11-04-2022 Radiologic examinati on of knee Plan of Treatment Date Care Activity Detail Author Start: 04-27-2033 Urine microalbumin profile DTaP,Tdap,Td Vaccine (11 - Td or Tdap) [facility] Start: 02-28-2029 Urine microalbumin profile [facility] Start: 06-27-2025 Influenza vaccination Influenz a Vaccine (Season Ended) [facility] Start: 11-03-2024 End: 11-03-2024 Patient encounter procedure 11/03/2024 5:40 PM EST Office Visit Family [facility] [address] [place] [address] Kati Quintero APRN.[employer] C[employer]TER [address] [place], [place] [id number] Establish [facility] Comment on above: [facility] Care Start: 07-29-2024 End: 07-29-2024 Patient encounter procedure 07/29/2024 5:20 PM EDT Office Visit [facility] [address] [place] [id number] Wei Rodriguez, [employer] [address] [place] [address] BP F/U- UC 07/26 (Est. care with [facility]) [facility] Comment on above: BP F/U- UC 07/26 (Est . care with [facility]) Start: 06-27-2024 Covid-19 Vaccine ( season) Covid-19 Vaccine ( season) [facility] Start: 06-27-2024 Influenza vaccination [facility] Start: 10-27-2023 Behavioral Health Screening Behavioral Health Screening [facility] Start: 10-27-2023 Depression Assessment Depression Ass essment [facility] Start: 06-27-2023 Covid-19 Vaccine ( season) Covid-19 Vaccine ( season) [facility] Start: 06-27-2023 Influenza vaccination C [facility] Start: 12-20-2022 Patient referral [facility] Work Phone: Start: 11-04-2022 Radiologic examinati on knee 3 views X-RAY EXAM OF KNEE 3 [facility] Start: 10-27-2022 DEPRESSION ASSESSMENT DEPRESSION ASS ESSMENT [facility] Start: 06-27-2022 Influenza vaccination INFLUENZA (#1) [facility] Start: 10-31-2021 COVID-19 VACCINE (3 - Booster for Pfizer series) COVID-19 VACCINE (3 - Booster for Pfizer series) [facility] Start: 10-31-2021 COVID-19 VACCINE (3 - Pfizer series) COVID-19 VACCINE (3 - Pfizer series) [facility] Start: 2014 Pneumococcal vaccination Pneumococcal Vaccine (1 of 2 - PCV) [facility] Start: 01-13-2014 HPV VACCINE (3 - Mal e 3-dose series) HPV VACCINE (3 - Male 3-dose series) [facility] Start: 2013 Anxiety Screening Anxiety Screening [facility] Start: 2013 Depression Screening Depression Scre ening [facility] Start: 2013 HEPATITIS C SCREENING HEPATITIS C [facility] Start: 2013 Hepatitis C screening Hepatitis C [facility] Start: 2013 HIV SCREENING [facility]CRE[facility] Start: 2013 HIV screening [facility] Screening [facility] Start: 2001 PNEUMOCOCCAL (1 - PCV) PNEUMOCOCCAL (1 - PCV) [facility] Start: 2001 Pneumococcal vaccination [facility] End: 02-07-2024 ECG COMPLETE ECG COMPLETE ECG Routine Atypical chest pain 1 Occurrences starting 02/06/2023 until 02/07/2024 [facility] Work Phone: Comment on above: 1 Occurrences starti ng 02/06/2023 until 02/07/2024 ECG COMPLETE ECG COMPLETE ECG 02/06/2023 4:36 PM EDT [facility] Patient Education [facility] Work Phone: Patient referral [facility] Work Phone: [facility] Immunizations Immunization Date Immunization Notes Care Provider Fa cility 04-27-2023 tetanus toxoid, redu catrachito diphtheria toxoid, and acellular pertussis vaccine, adsorbed [facility] 09-13-2019 influenza, injectabl e, quadrivalent, contains preservative Fredy Sánchez MD Work Phone: [facility] 09-13-2019 influenza virus vacc ine, unspecified formulation Patti Mesa APRN.[facility] Work Phone: [facility] 02-28-2019 tetanus toxoid, redu catrachito diphtheria toxoid, and acellular pertussis vaccine, adsorbed [facility] 07-30-2017 tetanus toxoid, redu catrachito diphtheria toxoid, and acellular pertussis vaccine, adsorbed [facility] 10-06-2016 tetanus toxoid, redu catrachito diphtheria toxoid, and acellular pertussis vaccine, adsorbed [facility] 09-15-2013 human papilloma viru s vaccine, quadrivalent Maykel Houser MD Work Phone: [facility] 07-05-2013 human papilloma viru s vaccine, quadrivalent Maykel Houser MD Work Phone: [facility] 2008 meningococcal polysaccharide (groups A, C, Y and W-135) diphtheria toxoid conjugate vaccine (MCV4P) Maykel Houser MD Work Phone: [facility] 2008 tetanus toxoid, redu catrachito diphtheria toxoid, and acellular pertussis vaccine, adsorbed Maykel Houser MD Work Phone: [facility] 2008 varicella virus vaccine Myra Houser MD Work Phone: [facility] 07-30-1999 diphtheria, tetanus toxoids and acellular pertussis vaccine Maykel Houser MD Work Phone: [facility] Work Phone: 07-30-1999 measles, mumps and rubella virus vaccine Maykel Houser MD Work Phone: [facility] Work Phone: 07-30-1999 poliovirus vaccine, inactivated Maykel Houser MD Work Phone: [facility] Work Phone: 02-14-1998 varicella virus vaccine Myra Houser MD Work Phone: [facility] Work Phone: 12-23-1996 diphtheria, tetanus toxoids and acellular pertussis vaccine Maykel Houser MD Work Phone: [facility] Work Phone: 12-23-1996 haemophilus influenz ae type b vaccine, HbOC conjugate Maykel Houser MD Work Phone: [facility] Work Phone: 12-23-1996 hepatitis B vaccine, pediatric or pediatric/adolescent dosage Maykel Houser MD Work Phone: [facility] Work Phone: 12-23-1996 measles, mumps and rubella virus vaccine Maykel Houser MD Work Phone: [facility] Work Phone: 01-07-1996 diphtheria, tetanus toxoids and acellular pertussis vaccine Maykel Houser MD Work Phone: [facility] Work Phone: 01-07-1996 trivalent poliovirus vaccine, live, oral Maykel Houser MD Work Phone: [facility] Work Phone: 1995 diphtheria, tetanus toxoids and acellular pertussis vaccine Maykel Houser MD Work Phone: [facility] Work Phone: 1995 hepatitis B vaccine, pediatric or pediatric/adolescent dosage Maykel Houser MD Work Phone: [facility] Work Phone: 1995 trivalent poliovirus vaccine, live, oral Maykel Houser MD Work Phone: [facility] Work Phone: 1995 diphtheria, tetanus toxoids and acellular pertussis vaccine Maykel Houser MD Work Phone: [facility] Work Phone: 1995 hepatitis B vaccine, pediatric or pediatric/adolescent dosage Maykel Houser MD Work Phone: [facility] Work Phone: 1995 trivalent poliovirus vaccine, live, oral Maykel Houser MD Work Phone: [facility] Work Phone: Payers Date Payer Category Payer Unknown [id number] 2024 Unknown [id number] 2024 Unknown [id number] 2022 Medicaid [id number] 2022 Unknown [id number] Self-pay 1995 Unknown [id number] Unknown [id number] Unknown [id number] Unknown [id number] Unknown [id number] [id number] Unknown [id number] [id number] Unknown [id number] [id number] [id number] Unknown [id number] [id number] Unknown [id number] [id number] Social History Date Type Detail Facility Start: 08-27-2021 End: 06-22-2023 Tobacco smoking status SDIS Unknown if ever smoked [facility] Start: 11-19-2020 None [facility] Start: 07-01-2020 Spouse/ Signif icant Other [facility] Start: 11-29-2019 Chew [facility] Start: 1995 Sex Assigned At Male W [facility] Start: 01-06-2023 Tobacco smoking stat us SDIS Smokes tobacco daily [facility] End: 10-28-2011 History of tobacco use Cigarette Smoker [facility] Start: 01-06-2023 End: 07-26-2024 Tobacco use and exposure Smokeless tobacco non-user [facility] Start: 01-06-2023 End: 07-26-2024 Alcohol intake Current drinker of alcohol (finding) [facility] Start: 01-06-2023 Tobacco Comment 1-2 cigarettes per d ay [facility] Start: 10-01-2016 Alcohol Comment drinks on holi days-4-5 beers [facility] Start: 1995 Sex Assigned At Not on file [facility] Start: 03-10-2023 End: 07-26-2024 Tobacco smoking status NHIS Occasional tobacco smoker [facility] Start: 05-21-2023 End: 07-29-2024 History of Social function [facility] Work Phone: Start: 05-21-2023 End: 07-29-2024 Tobacco use panel [facility] Work Phone: Adult Depression Screening Assessment 0 [facility] Work Phone: Start: 10-13-2024 Gender identity Identifies as male gender (finding) [facility] Mental Status Date Assessment Result Facility 06-22-2023 Cognitive function Level Of Cons ciousness Awake;Alert;Appropriate [facility] Work Phone: 03-05-2023 Cognitive function Level Of Cons ciousness Awake;Alert;Appropriate [facility] Work Phone: Clinical Notes 04-13-2018 to 04-07-2025 Patient Memo Moreau APRN.[employer] C[employer]TER - 04/07/2025 11:42 AM EDTPatient InstructionsJakub Hernandez, RT(R) - 01/04/2025 9:30 AM Martina Segura APRN.[employer] C[employer]TER - 01/04/2025 9:11 AM EDT Note Date & Type Note Facility 04-07-2025 Instructions Memo Sandoval APRN.CNP - 04/07/2025 11:55 AM EDT COUGH: Your doctor wants you to have this information about coughing. The body has a cough reflex which helps expel mucous secretions and irritants from the lung and airway passages. Cough spasms are periods of continuous coughing lasting several minutes. Most coughs is caused by virus infections which may last for up to 2-3 weeks. Coughing helps to protect the lung from pneumonia. A persistent cough lasting longer than 4-6 weeks requires medical evaluation by your primary care doctor. Treatment of cough includes measures to loosen the cough and thin the mucous. Warm liquids, cough drops, and nonprescription cough medicine may help reduce dry hacking cough. Use a humidifier if necessary as dry air can make coughs worse. Ultrasonic humidifiers are especially useful as they kill molds and many bacteria. Some cough medicines have antihistamines, decongestants, or alcohol in them; there is no proof that any of these help control cough. Prescription cough medicine or those with dextromethorphan (DM) should be reserved for dry coughs that prevent sleep or cause spasms or chest pain. Avoid any exposure to cigarette smoke as this will worsen the cough or make it last much longer. Call your doctor right away if you or your child have increased breathing difficulty, a high fever, a cough that lasts longer than 3 weeks, or other serious complaints. documented in this encounter [facility] 04-07-2025 Note HNO ID: [id number] Author: MEMO SANDOVAL APRN.CNP Service: ? Author Type: Nurse Practitioner Type: Progress Notes Filed: 04/07/2025 11:56 Note Text: Telemedicine Visit - Distance Health Virtual Visit Note Patient seen on [employer] Video Visit platform. Location of patient: [place] I have communicated my name and active licensure. The patient's identity and physical location were verified at the time of this visit. Either the patient or their legal outreach representative has been informed of the risks and benefits of -- and alternatives to -- treatment through a remote evaluation and consents to proceed with the evaluation remotely. History of Present Illness Sean Pappas is a 29 year old male who presents with symptoms that started yesterday. Symptoms include: Positive for cough, chest congestion, fatigue, irritated throat Negative for Fever, Chills/Sweats, SOB, SANTOS, Wheezing, Nasal congestion, PND, Ear pain, Ear pressure, Face pain/pressure, Headache, Sore throat, Nausea, Emesis, and Diarrhea Recent rapid at-home COVID test completed: No Sick contacts: Co-workers Recent travel: None OTC meds/remedies that patient has tried: None. PAST MEDICAL HISTORY Diagnosis Date ADHD (attention deficit hyperactivity disorder) Anger Anxiety Bipolar disorder (HCC) Cervicalgia 04/13/2018 Left shoulder pain 04/13/2018 PAST SURGICAL HISTORY Procedure Laterality Date NONE FAMILY HISTORY Problem Relation Age of Onset other (ADHD [Other]) Father other (Ovarian Cyst [Other]) Mother mood disorders Hypertension Maternal Grandfather Social History Tobacco Use Smoking status: Some Days Current packs/day: 0.00 Types: Cigarettes Last attempt to quit: 10/28/2011 Years since quittin.4 Smokeless tobacco: Never Tobacco comments: 1-2 cigarettes per day Vaping Use Vaping status: Never Used Substance Use Topics Alcohol use: Yes Comment: drinks on naejjxij-[id number] beers Drug use: Yes Types: Marijuana Comment: last marijuana use was 06/2016 Current Outpatient Medications Medication Sig amLODIPine (NORVASC) 5 mg tablet Take 1 tablet by mouth once daily. meloxicam (MOBIC) 15 mg tablet benzonatate (TESSALON PERLE) 100 mg capsule Take 1 capsule by mouth three times a day as needed for cough. EPINEPHrine (EPIPEN) 0.3 mg/0.3 mL auto-injector Inject 0.3 mg intramuscularly as needed. (Patient not taking: Reported on 01/04/2025) azelastine 0.1% nasal spray Use 1 [place] in each nostril two times a day. (Patient not taking: Reported on 01/04/2025) sodium chloride (SALINE NASAL) 0.65 % nasal spray Use 2 Sprays in the nose as needed. (Patient not taking: Reported on 01/04/2025) gabapentin (NEURONTIN) 400 mg capsule Take 1 capsule by mouth four times daily. QUEtiapine (SEROQUEL) 50 mg tablet Take 50 mg by mouth twice daily. No current facility-administered medications for this visit. ALLERGIES Allergen Reactions Amoxicillin Hives Bees Hives Penicillins Hives Video Exam (Examination performed via Video enabled technology) General appearance: Alert, oriented, pleasant, in NAD: Yes Ill appearing: No Lethargic appearing: No Eyes: Sclera clear: Yes Conjunctiva without erythema: Yes Oropharynx: moist mucus membranes Frontal sinus tenderness by self palpation: No Maxillary sinus tenderness by self palpation: No Tender cervical adenopathy by self palpation: Yes Respiratory distress: No Coughing noted: No Audible wheezing noted: No ASSESSMENT/PLAN: 1. Acute cough - ICD9: 786.2, ICD10: R05.1 (primary diagnosis) - BENZONATATE 100 MG CAPSULE - Suspect viral illness; usually a self-limiting infection. Expect symptoms to last approximately 7-10 days. Antibiotics not effective against viral infections and are not indicated at this time. - Benzonatate 100 mg PRN cough as discussed - Use a humidifier/vaporizer while sleeping/laying down - Steam showers to help with cough (steam up bathroom and sit in there for 15-20 minutes at a time) - Push fluids; if decreased appetite, please incorporate electrolyte drinks (Gatorade, Powerade, Pedialyte) - Get plenty of rest - Drink warm water/tea with honey to help with cough - Tylenol/ibuprofen as needed for pain, fever - Cover cough and wash hands frequently to prevent the spread of germs - Cough drops as needed There is no great cough medication. Often remedies such as tea, warm steamy showers, and staying hydrated are the most effective. If you are having a productive cough (meaning you are getting mucous up with your cough), it is preferred to cough and get the mucous out so please only take cough suppressants when you really don't want to cough such as with sleeping. Some options for cough if needed: - Cough drops - Dextromethorphan (can cause drowsiness so may be best to take at bedtime), this is in over the counter medications such as mucinex DM. - Amanda Hernandez (prescription) 2. Encounter to obt (more content not included)... [facility] 04-07-2025 History of Present illness Narrative Telemedicine Visit - Distance Health Virtual Visit Note Patient seen on [employer] Video Visit platform. Location of patient: [place] I have communicated my name and active licensure. The patient's identity and physical location were verified at the time of this visit. Either the patient or their legal outreach representative has been informed of the risks and benefits of -- and alternatives to -- treatment through a remote evaluation and consents to proceed with the evaluation remotely. History of Present Illness Sean Pappas is a 29 year old male who presents with symptoms that started yesterday. Symptoms include: Positive for cough, chest congestion, fatigue, irritated throat Negative for Fever, Chills/Sweats, SOB, SANTOS, Wheezing, Nasal congestion, PND, Ear pain, Ear pressure, Face pain/pressure, Headache, Sore throat, Nausea, Emesis, and Diarrhea Recent rapid at-home COVID test completed: No Sick contacts: Co-workers Recent travel: None OTC meds/remedies that patient has tried: None. PAST MEDICAL HISTORY Diagnosis Date ADHD (attention deficit hyperactivity disorder) Anger Anxiety Bipolar disorder (HCC) Cervicalgia 04/13/2018 Left shoulder pain 04/13/2018 PAST SURGICAL HISTORY Procedure Laterality Date NONE FAMILY HISTORY Problem Relation Age of Onset other (ADHD [Other]) Father other (Ovarian Cyst [Other]) Mother mood disorders Hypertension Maternal Grandfather Social History Tobacco Use Smoking status: Some Days Current packs/day: 0.00 Types: Cigarettes Last attempt to quit: 10/28/2011 Years since quittin.4 Smokeless tobacco: Never Tobacco comments: 1-2 cigarettes per day Vaping Use Vaping status: Never Used Substance Use Topics Alcohol use: Yes Comment: drinks on cqtgezxp-7-2 beers Drug use: Yes Types: Marijuana Comment: last marijuana use was 06/2016 Current Outpatient Medications Medication Sig amLODIPine (NORVASC) 5 mg tablet Take 1 tablet by mouth once daily. meloxicam (MOBIC) 15 mg tablet benzonatate (TESSALON PERLE) 100 mg capsule Take 1 capsule by mouth three times a day as needed for cough. EPINEPHrine (EPIPEN) 0.3 mg/0.3 mL auto-injector Inject 0.3 mg intramuscularly as needed. (Patient not taking: Reported on 01/04/2025) azelastine 0.1% nasal spray Use 1 [place] in each nostril two times a day. (Patient not taking: Reported on 01/04/2025) sodium chloride (SALINE NASAL) 0.65 % nasal spray Use 2 Sprays in the nose as needed. (Patient not taking: Reported on 01/04/2025) gabapentin (NEURONTIN) 400 mg capsule Take 1 capsule by mouth four times daily. QUEtiapine (SEROQUEL) 50 mg tablet Take 50 mg by mouth twice daily. No current facility-administered medications for this visit. ALLERGIES Allergen Reactions Amoxicillin Hives Bees Hives Penicillins Hives Video Exam (Examination performed via Video enabled technology) General appearance: Alert, oriented, pleasant, in NAD: Yes Ill appearing: No Lethargic appearing: No Eyes: Sclera clear: Yes Conjunctiva without erythema: Yes Oropharynx: moist mucus membranes Frontal sinus tenderness by self palpation: No Maxillary sinus tenderness by self palpation: No Tender cervical adenopathy by self palpation: Yes Respiratory distress: No Coughing noted: No Audible wheezing noted: No ASSESSMENT/PLAN: 1. Acute cough - ICD9: 786.2, ICD10: R05.1 (primary diagnosis) - BENZONATATE 100 MG CAPSULE - Suspect viral illness; usually a self-limiting infection. Expect symptoms to last approximately 7-10 days. Antibiotics not effective against viral infections and are not indicated at this time. - Benzonatate 100 mg PRN cough as discussed - Use a humidifier/vaporizer while sleeping/laying down - Steam showers to help with cough (steam up bathroom and sit in there for 15-20 minutes at a time) - Push fluids; if decreased appetite, please incorporate electrolyte drinks (Gatorade, Powerade, Pedialyte) - Get plenty of rest - Drink warm water/tea with honey to help with cough - Tylenol/ibuprofen as needed for pain, fever - Cover cough and wash hands frequently to prevent the spread of germs - Cough drops as needed There is no great cough medication. Often remedies such as tea, warm steamy showers, and staying hydrated are the most effective. If you are having a productive cough (meaning you are getting mucous up with your cough), it is preferred to cough and get the mucous out so please only take cough suppressants when you really don't want to cough such as with sleeping. Some options for cough if needed: - Cough drops - Dextromethorphan (can cause drowsiness so may be best to take at bedtime), this is in over the counter medications such as mucinex DM. - Amanda Hernandez (prescription) 2. Encounter to obtain excuse from work - ICD9: V68.89, ICD10: Z02.89 - Sent via [employer] - Red flags discussed for need for in person care - All questions answered Memo Sandoval APRN.CNP History and Record Review External record(s) reviewed: prior outpatient record. Differential Diagnoses - Acute cough r/t viral process is more likely for the following reason(s): suggested by H&P - Pneumonia is less likely for the following reason(s): H&P not suggestive Disposition The patient was other (comment) (Zoom visit ended). documented in this encounter [facility] 01-04-2025 Instructions Martina Ritchie APRN.MIGUEL - 01/04/2025 9:36 AM EDT RESPIRATORY INFECTION GENERAL INFORMATION: An upper respiratory tract infection, or cold, is a viral infection of the airway passages. It can be caused by any one of almost 200 different viruses. Common symptoms include a runny or stuffy nose, sneezing, watery eyes, sore throat, cough, and slight fever. Colds are contagious, especially during the first 3 or 4 days and cannot be cured by antibiotics. They are spread by coughs, sneezes, and direct contact, especially [id number]. A respiratory tract infection usually clears up in a few days, but some people may be sick for a week or two. INSTRUCTIONS: 1. Be careful not to blow your nose too hard because this may cause a nosebleed. 2. Use a cool-mist humidifier (vaporizer) to increase air moisture. This will make it easier for you to breathe. Do not use hot steam. 3. Rest as much as possible and get plenty of sleep. 4. Wash your hands often, especially after you blow your nose. Cover your mouth and nose with a tissue when you sneeze or cough. 5. Drink plenty of clear fluids (8 glasses a day) such as water, fruit juice, tea, clear soups, and carbonated beverages. CONTACT YOUR DOCTOR IF : 1. Your fever lasts more than 3 days. 2. You have a sore throat that gets worse or you see white or yellow spots in your throat. 3. Your cough gets worse or lasts more than 10 days. 4. You develop a rash anywhere on your skin. 5. You have an earache or a headache. 6. You have thick greenish or yellowish discharge from your nose. RETURN IMMEDIATELY IF: 1. You cough up thick yellow, green, juares, or bloody sputum. 2. You have difficulty breathing, pain in your chest, or your skin or nails look juraes or blue. 3. You have shaking chills or a temperature over 102 F (39 C). documented in this encounter [facility] 01-04-2025 History of Present illness Narrative Radiology Service Progress Note PATIENT NAME: Sean Pappas DATE OF SERVICE: January 04, 2025 TIME: 9:28 AM PATIENT IDENTITY VERIFICATION COMPLETED USING TWO (2) IDENTIFIERS: Name and Date of confirmed by patient verbally. FALL SCREENING: Has the patient had 2 falls in the last year or 1 fall with injury or currently using an Ambulatory Assistive Device (Walker, Cane, Wheelchair, Crutches, etc.)? No PATIENT GENDER DATA: Assigned male at PATIENT RELEVANT IMPLANT DATA REVIEWED: Not Applicable PATIENT PRESENTS WITH AN IMPLANTABLE OR ATTACHED REINSURANCE CLERK: No RADIOLOGY DEPARTMENT: General X-ray: Exam(s) Completed: Chest X-Ray PERIPHERAL IV DATA: Not applicable SIGNED BY: RT Dickson(R) January 04, 2025 9:28 AM documented in this encounter [facility] 01-04-2025 Note HNO ID: [id number] Author: JAKUB HERNANDEZ RT(Parker) Service: Radiology Author Type: Technologist Type: Progress Notes Filed: 01/04/2025 09:33 Note Text: Radiology Service Progress Note PATIENT NAME: Sean Pappas DATE OF SERVICE: January 04, 2025 TIME: 9:28 AM PATIENT IDENTITY VERIFICATION COMPLETED USING TWO (2) IDENTIFIERS: Name and Date of confirmed by patient verbally. FALL SCREENING: Has the patient had 2 falls in the last year or 1 fall with injury or currently using an Ambulatory Assistive Device (Walker, Cane, Wheelchair, Crutches, etc.)? No PATIENT GENDER DATA: Assigned male at PATIENT RELEVANT IMPLANT DATA REVIEWED: Not Applicable PATIENT PRESENTS WITH AN IMPLANTABLE OR ATTACHED REINSURANCE CLERK: No RADIOLOGY DEPARTMENT: General X-ray: Exam(s) Completed: Chest X-Ray PERIPHERAL IV DATA: Not applicable SIGNED BY: RT Dickson(Parker) January 04, 2025 9:28 AM [facility] 01-04-2025 Note HNO ID: [id number] Author: MARTINA RITCHIE APRN.APPAREL CUTTER Service: ? Author Type: Nurse Practitioner Type: Progress Notes Filed: 01/04/2025 11:30 Note Text: CC: Patient presents with: Chest Congestion: cough x 1 week HPI The history is provided by the patient. No frame aligner was used. Sean Pappas is a 29 yr old male who presents for a cough x 1 week. Eight days ago he developed fever, cough, nasal congestion, malaise, body aches, sore throat and nausea. Today he reports all symptoms have resolved excluding productive cough with green phlegm and clear nasal congestion. He denies SOB, chest pain, palpitation, N/V/D or sore throat. He has some chest tightness but this is not continuous. OTC cough, cold, analgesics and sudafed. His main concern today is his persistent cough. He smokes on average about 1 cigarette daily. No history of asthma or COPD. . Review of Systems Constitutional: Positive for chills and fatigue. HENT: Positive for congestion, rhinorrhea, sneezing and voice change. Negative for ear pain, sinus pressure, sinus pain and sore throat. Eyes: Negative for pain and itching. Respiratory: Positive for cough and chest tightness. Negative for shortness of breath. Cardiovascular: Negative for chest pain, palpitations and leg swelling. Gastrointestinal: Negative for abdominal pain, diarrhea and nausea. Musculoskeletal: Negative for arthralgias and myalgias. Skin: Negative for rash. Allergic/Immunologic: Positive for environmental allergies. Negative for food allergies and immunocompromised state. PAST MEDICAL HISTORY Diagnosis Date ADHD (attention deficit hyperactivity disorder) Anger Anxiety Bipolar disorder (HCC) Cervicalgia 04/13/2018 Left shoulder pain 04/13/2018 PAST SURGICAL HISTORY Procedure Laterality Date NONE ALLERGIES Amoxicillin, Bees, and Penicillins MEDICATIONS amLODIPine (NORVASC) 5 mg tablet Take 1 tablet by mouth once daily. meloxicam (MOBIC) 15 mg tablet gabapentin (NEURONTIN) 400 mg capsule Take 1 capsule by mouth four times daily. QUEtiapine (SEROQUEL) 50 mg tablet Take 50 mg by mouth twice daily. EPINEPHrine (EPIPEN) 0.3 mg/0.3 mL auto-injector Inject 0.3 mg intramuscularly as needed. (Patient not taking: Reported on 01/04/2025) benzonatate (TESSALON PERLES) 100 mg capsule Take 1 capsule by mouth three times a day as needed for cough. (Patient not taking: Reported on 07/26/2024) Bwakxczcswrjqaa-Lgheiblvx-DJ (BROMFED DM) 2-30-10 mg/5 mL syrup Take 5 mL by mouth four times a day as needed. (Patient not taking: Reported on 07/26/2024) azelastine 0.1% nasal spray Use 1 [place] in each nostril two times a day. (Patient not taking: Reported on 01/04/2025) sodium chloride (SALINE NASAL) 0.65 % nasal spray Use 2 Sprays in the nose as needed. (Patient not taking: Reported on 01/04/2025) FAMILY HISTORY Problem Relation Age of Onset other (ADHD [Other]) Father other (Ovarian Cyst [Other]) Mother mood disorders Hypertension Maternal Grandfather Social History Tobacco Use Smoking status: Some Days Current packs/day: 0.00 Types: Cigarettes Last attempt to quit: 10/28/2011 Years since quittin.1 Smokeless tobacco: Never Tobacco comments: 1-2 cigarettes per day Vaping Use Vaping status: Never Used Substance Use Topics Alcohol use: Yes Comment: drinks on klzxyxpc-7-6 beers Drug use: Yes Types: Marijuana Comment: last marijuana use was 06/2016 BP 124/80 Pulse 102 Temp 36.3 ?C (97.3 ?F) Resp 16 Wt 103 kg (227 lb 1.2 oz) SpO2 98% BMI 30.80 kg/m? Physical Exam Constitutional: Appearance: Normal appearance. HENT: Head: Normocephalic. Jaw: No trismus or tenderness. Salivary Glands: Right salivary gland is not diffusely enlarged. Left salivary gland is not diffusely enlarged. Right Ear: Tympanic membrane normal. No drainage, swelling or tenderness. Tympanic membrane is not bulging. Left Ear: Tympanic membrane normal. No drainage, swelling or tenderness. Tympanic membrane is not bulging. Nose: Rhinorrhea present. No nasal tenderness. Rhinorrhea is clear. Right Sinus: No maxillary sinus tenderness or frontal sinus tenderness. Left Sinus: No maxillary sinus tenderness or frontal sinus tenderness. Mouth/Throat: Lips: [place]. Mouth: Mucous membranes are moist. No oral lesions. Dentition: No dental tenderness or gingival swelling. Tongue: No lesions. Pharynx: Oropharynx is clear. Uvula midline. No oropharyngeal exudate or posterior oropharyngeal erythema. Tonsils: No tonsillar exudate or tonsillar abscesses. 3+ on the right. 3+ on the left. Eyes: Conjunctiva/sclera: Conjunctivae normal. Cardiovascular: Rate and Rhythm: Normal rate and regular rhythm. Heart sounds: Normal heart sounds, S1 normal and S2 normal. No murmur heard. Pulmonary: Effort: Pulmonary effort is normal. No respiratory distress. Breath sounds: Normal breath sounds. No wheezing or rhonchi. Abdominal: Gene (more content not included)... [facility] 01-04-2025 History of Present illness Narrative CC: Patient presents with: Chest Congestion: cough x 1 week HPI The history is provided by the patient. No frame aligner was used. Sean Pappas is a 29 yr old male who presents for a cough x 1 week. Eight days ago he developed fever, cough, nasal congestion, malaise, body aches, sore throat and nausea. Today he reports all symptoms have resolved excluding productive cough with green phlegm and clear nasal congestion. He denies SOB, chest pain, palpitation, N/V/D or sore throat. He has some chest tightness but this is not continuous. OTC cough, cold, analgesics and sudafed. His main concern today is his persistent cough. He smokes on average about 1 cigarette daily. No history of asthma or COPD. . Review of Systems Constitutional: Positive for chills and fatigue. HENT: Positive for congestion, rhinorrhea, sneezing and voice change. Negative for ear pain, sinus pressure, sinus pain and sore throat. Eyes: Negative for pain and itching. Respiratory: Positive for cough and chest tightness. Negative for shortness of breath. Cardiovascular: Negative for chest pain, palpitations and leg swelling. Gastrointestinal: Negative for abdominal pain, diarrhea and nausea. Musculoskeletal: Negative for arthralgias and myalgias. Skin: Negative for rash. Allergic/Immunologic: Positive for environmental allergies. Negative for food allergies and immunocompromised state. PAST MEDICAL HISTORY Diagnosis Date ADHD (attention deficit hyperactivity disorder) Anger Anxiety Bipolar disorder (HCC) Cervicalgia 04/13/2018 Left shoulder pain 04/13/2018 PAST SURGICAL HISTORY Procedure Laterality Date NONE ALLERGIES Amoxicillin, Bees, and Penicillins MEDICATIONS amLODIPine (NORVASC) 5 mg tablet Take 1 tablet by mouth once daily. meloxicam (MOBIC) 15 mg tablet gabapentin (NEURONTIN) 400 mg capsule Take 1 capsule by mouth four times daily. QUEtiapine (SEROQUEL) 50 mg tablet Take 50 mg by mouth twice daily. EPINEPHrine (EPIPEN) 0.3 mg/0.3 mL auto-injector Inject 0.3 mg intramuscularly as needed. (Patient not taking: Reported on 01/04/2025) benzonatate (TESSALON PERLES) 100 mg capsule Take 1 capsule by mouth three times a day as needed for cough. (Patient not taking: Reported on 07/26/2024) Dhfxllvojtjwlnx-Tpmrbsprd-JL (BROMFED DM) 2-30-10 mg/5 mL syrup Take 5 mL by mouth four times a day as needed. (Patient not taking: Reported on 07/26/2024) azelastine 0.1% nasal spray Use 1 [place] in each nostril two times a day. (Patient not taking: Reported on 01/04/2025) sodium chloride (SALINE NASAL) 0.65 % nasal spray Use 2 Sprays in the nose as needed. (Patient not taking: Reported on 01/04/2025) FAMILY HISTORY Problem Relation Age of Onset other (ADHD [Other]) Father other (Ovarian Cyst [Other]) Mother mood disorders Hypertension Maternal Grandfather Social History Tobacco Use Smoking status: Some Days Current packs/day: 0.00 Types: Cigarettes Last attempt to quit: 10/28/2011 Years since quittin.1 Smokeless tobacco: Never Tobacco comments: 1-2 cigarettes per day Vaping Use Vaping status: Never Used Substance Use Topics Alcohol use: Yes Comment: drinks on syqvtpak-7-9 beers Drug use: Yes Types: Marijuana Comment: last marijuana use was 06/2016 BP 124/80 Pulse 102 Temp 36.3 C (97.3 F) Resp 16 Wt 103 kg (227 lb 1.2 oz) SpO2 98% BMI 30.80 kg/m Physical Exam Constitutional: Appearance: Normal appearance. HENT: Head: Normocephalic. Jaw: No trismus or tenderness. Salivary Glands: Right salivary gland is not diffusely enlarged. Left salivary gland is not diffusely enlarged. Right Ear: Tympanic membrane normal. No drainage, swelling or tenderness. Tympanic membrane is not bulging. Left Ear: Tympanic membrane normal. No drainage, swelling or tenderness. Tympanic membrane is not bulging. Nose: Rhinorrhea present. No nasal tenderness. Rhinorrhea is clear. Right Sinus: No maxillary sinus tenderness or frontal sinus tenderness. Left Sinus: No maxillary sinus tenderness or frontal sinus tenderness. Mouth/Throat: Lips: [place]. Mouth: Mucous membranes are moist. No oral lesions. Dentition: No dental tenderness or gingival swelling. Tongue: No lesions. Pharynx: Oropharynx is clear. Uvula midline. No oropharyngeal exudate or posterior oropharyngeal erythema. Tonsils: No tonsillar exudate or tonsillar abscesses. 3+ on the right. 3+ on the left. Eyes: Conjunctiva/sclera: Conjunctivae normal. Cardiovascular: Rate and Rhythm: Normal rate and regular rhythm. Heart sounds: Normal heart sounds, S1 normal and S2 normal. No murmur heard. Pulmonary: Effort: Pulmonary effort is normal. No respiratory distress. Breath sounds: Normal breath sounds. No wheezing or rhonchi. Abdominal: General: Bowel sounds are normal. Tenderness: There is no abdominal tenderness. Musculoskeletal: General: No swelling. Cervical back: Normal range of motion. No rigidity or tenderness. Lymphadenopathy: Cervical: No cervical adenopathy. Skin: General: Skin is warm and dry. Coloration: Skin is not jaundiced. Findings: No rash. Neurological: Mental Status: He is alert. Psychiatric: Mood and Affect: Mood normal. Behavior: Behavior is cooperative. ASSESSMENT/PLAN: 1. Acute cough - ICD9: 786.2, ICD10: R05.1 (primary diagnosis) Persistent x 8 days. Initially had flu like symptoms which have resolved. Currently afebrile, no SOB, or wheezing. Lungs CTA. Productive cough green phlegm. No history asthma, COPD. Smokes 1pk/cigarettes every 2 weeks. - XR CHEST 2V FRONTAL/LAT - Take Benzonatate caps as needed - Use Prednisone taper as prescribed. CXR results discussed with patient in office. IMPRESSION: No acute radiographic abnormality. 2. URI, acute - ICD9: 465.9, ICD10: J06.9 - Discussed viral etiology and rationale for treatment. - Rapid strep negative in office today - Symptomatic treatment with prn analgesia - Supportive care with fluids and rest - The patient may also use OTC decongestants prn, OTC cough and cold meds as needed, and behind the counter Pseudoephedrine. - Follow up in 3-5 days if symptoms persist or sooner if worsening of symptoms - STREP A MOLECULAR (POC) Monica Lees Prescription instructions reviewed with patient as applicable. Potential red flag symptoms discussed with the patient. Reviewed appropriate action plan to take if red flag symptoms occur. Patient agreeable to treatment plan. Monica Lees TEACHING PROVIDER (Physician/PA/RETURNED GOODS SORTER) NOTE OF PERSONAL INVOLVEMENT IN CARE: I have personally seen and examined the patient and performed the medical decision-making components. I have reviewed the Advanced Practice Registered Nurse (RETURNED GOODS SORTER) Student's documentation and verified the findings in the note as written. Any additions or changes are noted in bold/italics. Signature: Martina Ritchie Date: 01/04/2025 Time: 11:29 AM documented in this encounter [facility] 10-13-2024 Instructions Lesa Schaeffer APRN.MIGUEL - 10/13/2024 1:43 PM EST Sprains of the Ankle, Knee and Wrist What is a sprain? A sprain occurs when a ligament (a band of tissue that connects two or more bones at a joint) is stretched and/or torn. During a sprain, one or more ligaments may be injured. The severity of the sprain depends on the number of ligaments injured and the extent of the injury (whether there is a partial or complete tear). What causes a sprain? A sprain is caused by either direct or indirect trauma that knocks the joint out of position and overstretches, sometimes rupturing the supporting ligaments. Examples of trauma include rolling of the ankle, a fall or a blow to the body. Where do sprains occur? Sprains occur in both the upper and lower parts of the body. However, the three most common sprain sites are the ankle, knee and wrist. Ankle sprain-- typically occurs when the foot turns inward as a person runs, turns or lands on the ankle after a jump. Knee sprain-- typically occurs after a blow to the knee or a fall. Sudden twisting of the knee may result in a sprain. Wrist sprain --typically occurs when one falls and lands on an outstretched hand. Who is at risk for sprains? Both professional and amateur athletes-- as well as the general public--can sustain this type of injury. However, those who have a history of sprains, are overweight and are in poor physical condition have increased risk. What are the signs and symptoms of sprains? Signs and symptoms may vary due to severity of injury. They may include: Pain Swelling Inflammation Bruising Instability Loss of the ability to move and use the joint When should I see a health care provider for a sprain? You have severe pain and cannot put weight on the injured joint. The injured area looks crooked, has lumps and bumps (other than swelling) that you do not see on the uninjured joint. You cannot move the injured joint. There is numbness in any part of the injured area. Redness or red streaks spread out from the injury. You injure an area that has been injured before. You have pain, swelling or redness over a bony part of your foot. You are in doubt about the seriousness of the injury and/or how to care for it. How are sprains treated? Health care providers advise patients to follow the rest, ice, compress and elevation (RICE) method for the first 24 to 48 hours after the injury. Rest?Reduce regular exercises and activities of daily living. Your health care provider may advise you to not put weight on the injured area for 48 hours. You may need to use crutches. Ice?Apply an ice pack to injured area for 20 minutes, four to eight times a day. You can use a cold pack, ice bag or plastic bag filled with ice wrapped in a towel. To avoid underwood bite and cold injury, do not apply the ice for longer than 20 minutes at a time. Compression?Compression of the injured area my help reduce swelling. Elastic wraps, specialized boots, air casts and splints may be used as compression bandages. Ask your health care provider which would be the most appropriate to use. Also ask how tightly to apply the bandage safely. Elevation?In order to help decrease swelling, keep the injured area elevated on a pillow above the level of your heart. How can I help prevent sprains? To help reduce the risk of sprains: Avoid exercising or playing sports when tired or in pain. Maintain a healthy weight and well- balanced diet to keep muscles strong. Wear shoes that fit properly. Practice safety measures to prevent falls. Do stretching exercises daily. Warm up and stretch before doing any physical activity. References National [employer] of Arth[employer] and Musculoskeletal and Skin Diseases. Questions and Answers about Sprains and Strains Accessed 03/01/2014. [place] [employer]. Sprains and Strains: What's the Difference? Accessed 03/01/2014. Copyright 8419-8466 The [facility]. All rights reserved. This information is provided by the [facility] and is not intended to replace the medical advice of your doctor or health care provider. Please consult your health care provider for advice about a specific medical condition. For additional health information, please contact the Center for Consumer Health Information at the [facility] or toll-free extension [phone]. If you prefer, you may visit [email or web address] or [email or web address]. This document was last reviewed on: 2014 index#[id number] documented in this encounter [facility] 10-13-2024 Note HNO ID: [id number] Author: LESA SCHAEFFER APRN.CNP Service: ? Author Type: Nurse Practitioner Type: Progress Notes Filed: 10/13/2024 13:43 Note Text: Telemedicine Visit - Distance Health Virtual Visit Note Patient seen on [employer] Zoom Video Visit platform. Location of patient: [place] I have communicated my name and active licensure. The patient's identity and physical location were verified at the time of this visit. Either the patient or their legal outreach representative has been informed of the risks and benefits of -- and alternatives to -- treatment through a remote evaluation and consents to proceed with the evaluation remotely. History of Present Illness Sean Pappas is a 29 year old male who presents for complaint of Left ankle pain. Symptoms have been present for 3 day(s) with symptoms that are: Worsening PAST MEDICAL HISTORY Diagnosis Date ADHD (attention deficit hyperactivity disorder) Anger Anxiety Bipolar disorder (HCC) Cervicalgia 04/13/2018 Left shoulder pain 04/13/2018 PAST SURGICAL HISTORY Procedure Laterality Date NONE FAMILY HISTORY Problem Relation Age of Onset other (ADHD [Other]) Father other (Ovarian Cyst [Other]) Mother mood disorders Hypertension Maternal Grandfather Social History Tobacco Use Smoking status: Some Days Current packs/day: 0.00 Types: Cigarettes Last attempt to quit: 10/28/2011 Years since quittin.9 Smokeless tobacco: Never Tobacco comments: 1-2 cigarettes per day Vaping Use Vaping status: Never Used Substance Use Topics Alcohol use: Yes Comment: drinks on ucrsvugf-9-3 beers Drug use: Yes Types: Marijuana Comment: last marijuana use was 06/2016 Current Outpatient Medications Medication Sig EPINEPHrine (EPIPEN) 0.3 mg/0.3 mL auto-injector Inject 0.3 mg intramuscularly as needed. benzonatate (TESSALON PERLES) 100 mg capsule Take 1 capsule by mouth three times a day as needed for cough. (Patient not taking: Reported on 07/26/2024) Qlibziqbtaaeffb-Amjoogggb-VN (BROMFED DM) 2-30-10 mg/5 mL syrup Take 5 mL by mouth four times a day as needed. (Patient not taking: Reported on 07/26/2024) azelastine 0.1% nasal spray Use 1 [place] in each nostril two times a day. sodium chloride (SALINE NASAL) 0.65 % nasal spray Use 2 Sprays in the nose as needed. gabapentin (NEURONTIN) 400 mg capsule Take 1 capsule by mouth four times daily. QUEtiapine (SEROQUEL) 50 mg tablet Take 50 mg by mouth twice daily. No current facility-administered medications for this visit. ALLERGIES Allergen Reactions Amoxicillin Hives Bees Hives Penicillins Hives Video Exam (Examination performed via Video enabled technology) General appearance: Alert, oriented, pleasant, in NAD :Yes Ill appearing :No Lethargic appearing :No Respiratory distress :No Left ankle: significant bruising noted ASSESSMENT/PLAN: 1. Acute left ankle pain - ICD9: 719.47, ICD10: M25.572 (primary diagnosis) -Pt. Hurt ankle playing basketball on 10/10/24. Able to bear weight. Rates pain as 4/10 -RICE -Any worsening symptoms, be seen in person 2. Return to work evaluation - ICD9: V72.85, ICD10: Z76.89 Work note sent for the rest of the week. Lesa Schaeffer APRN.CNP - Red flags discussed for need for in person care - All questions answered Lesa Schaeffer APRN.CNP [facility] 10-13-2024 History of Present illness Narrative Telemedicine Visit - Distance Health Virtual Visit Note Patient seen on [employer] Video Visit platform. Location of patient: [place] I have communicated my name and active licensure. The patient's identity and physical location were verified at the time of this visit. Either the patient or their legal outreach representative has been informed of the risks and benefits of -- and alternatives to -- treatment through a remote evaluation and consents to proceed with the evaluation remotely. History of Present Illness Sean Pappas is a 29 year old male who presents for complaint of Left ankle pain. Symptoms have been present for 3 day(s) with symptoms that are: Worsening PAST MEDICAL HISTORY Diagnosis Date ADHD (attention deficit hyperactivity disorder) Anger Anxiety Bipolar disorder (HCC) Cervicalgia 04/13/2018 Left shoulder pain 04/13/2018 PAST SURGICAL HISTORY Procedure Laterality Date NONE FAMILY HISTORY Problem Relation Age of Onset other (ADHD [Other]) Father other (Ovarian Cyst [Other]) Mother mood disorders Hypertension Maternal Grandfather Social History Tobacco Use Smoking status: Some Days Current packs/day: 0.00 Types: Cigarettes Last attempt to quit: 10/28/2011 Years since quittin.9 Smokeless tobacco: Never Tobacco comments: 1-2 cigarettes per day Vaping Use Vaping status: Never Used Substance Use Topics Alcohol use: Yes Comment: drinks on ooavvagz-0-6 beers Drug use: Yes Types: Marijuana Comment: last marijuana use was 06/2016 Current Outpatient Medications Medication Sig EPINEPHrine (EPIPEN) 0.3 mg/0.3 mL auto-injector Inject 0.3 mg intramuscularly as needed. benzonatate (TESSALON PERLES) 100 mg capsule Take 1 capsule by mouth three times a day as needed for cough. (Patient not taking: Reported on 07/26/2024) Wudsfwupirelcls-Rmjjyagwy-OT (BROMFED DM) 2-30-10 mg/5 mL syrup Take 5 mL by mouth four times a day as needed. (Patient not taking: Reported on 07/26/2024) azelastine 0.1% nasal spray Use 1 [place] in each nostril two times a day. sodium chloride (SALINE NASAL) 0.65 % nasal spray Use 2 Sprays in the nose as needed. gabapentin (NEURONTIN) 400 mg capsule Take 1 capsule by mouth four times daily. QUEtiapine (SEROQUEL) 50 mg tablet Take 50 mg by mouth twice daily. No current facility-administered medications for this visit. ALLERGIES Allergen Reactions Amoxicillin Hives Bees Hives Penicillins Hives Video Exam (Examination performed via Video enabled technology) General appearance: Alert, oriented, pleasant, in NAD :Yes Ill appearing :No Lethargic appearing :No Respiratory distress :No Left ankle: significant bruising noted ASSESSMENT/PLAN: 1. Acute left ankle pain - ICD9: 719.47, ICD10: M25.572 (primary diagnosis) -Pt. Hurt ankle playing basketball on 10/10/24. Able to bear weight. Rates pain as 4/10 -RICE -Any worsening symptoms, be seen in person 2. Return to work evaluation - ICD9: V72.85, ICD10: Z76.89 Work note sent for the rest of the week. Lesa Schaeffer APRN.APPAREL CUTTER - Red flags discussed for need for in person care - All questions answered Lesa Schaeffer APRN.APPAREL CUTTER documented in this encounter [facility] 08-12-2024 Instructions Lesa Schaeffer APRN.MIGUEL - 08/12/2024 11:44 AM EDT I Feel So Sick, Don t I Need Antibiotics? Did you know. . . There s only a 1 in 4000 chance that an antibiotic will help most acute upper respiratory infections. But there s a 1 in 4 chance of diarrhea and a 1 in 50 chance of a skin reaction and a 1 in 1000 chance it ll cause an ER visit due to some side effect. Antibiotics can also lead to more resistant infections that are harder to treat. Bottom line: There s little to no benefit to taking antibiotics for most acute upper respiratory tract infections...and the downsides are real. Viruses cannot be treated by antibiotics. Viruses cause most upper respiratory infections, which include head colds, sore throats, bronchitis, and sinus infections. The common cold and influenza do not respond to antibiotics. Less than 10 percent of acute bronchitis cases are caused by bacteria. Most cases of acute ear infections also resolve without antibiotics. Sore throats (pharyngitis) are usually caused by viruses as well. Antibiotics are not recommended unless you have strep throat and only about 15 to 30 percent of pharyngitis cases in children and up to 10 percent of cases in adults are due to strep throat. Almost all cases of acute bacterial sinusitis resolve without antibiotics. There are a few situations in which antibiotics are needed, however. See your health care provider if you have a decreased immune system due to cancer, or if you are taking steroids, have HIV, or have had an organ transplant, or if your symptoms worsen or last longer than 7 to 10 days. Most often you should use the axnn-xjd-rvufdup symptomatic treatment/s that your health care provider has recommended. These would include analgesic products such as acetaminophen (Tylenol ), decongestants, antihistamines, salt water gargles, drinking warm tea, and other methods to help treat the symptoms. Also remember that your best defense against getting the flu is to get a flu shot, but this does not, unfortunately, protect you against the many other viruses out in the environment that cause the other kinds of illnesses other than the actual influenza. documented in this encounter [facility] 08-12-2024 Note HNO ID: [id number] Author: LESA SCHAEFFER APRN.CNP Service: ? Author Type: Nurse Practitioner Type: Progress Notes Filed: 08/12/2024 11:44 Note Text: Telemedicine Visit - Distance Health Virtual Visit Note Patient seen on [employer] Video Visit platform. Location of patient: [place] I have communicated my name and active licensure. The patient's identity and physical location were verified at the time of this visit. Either the patient or their legal outreach representative has been informed of the risks and benefits of -- and alternatives to -- treatment through a remote evaluation and consents to proceed with the evaluation remotely. CC: Figure out what's going on History of Present Illness Sean Pappas is a 29 year old male who presents for the past 2 days with symptoms that are:constant. Symptoms include: Positive for Nasal congestion and PND, Negative for Fever Recent rapid at-home COVID test completed: No Sick contacts: NA Recent travel: NA OTC meds/remedies that patient has tried: None. PAST MEDICAL HISTORY Diagnosis Date ADHD (attention deficit hyperactivity disorder) Anger Anxiety Bipolar disorder (HCC) Cervicalgia 04/13/2018 Left shoulder pain 04/13/2018 PAST SURGICAL HISTORY Procedure Laterality Date NONE FAMILY HISTORY Problem Relation Age of Onset other (ADHD [Other]) Father other (Ovarian Cyst [Other]) Mother mood disorders Hypertension Maternal Grandfather Social History Tobacco Use Smoking status: Some Days Current packs/day: 0.00 Types: Cigarettes Last attempt to quit: 10/28/2011 Years since quittin.8 Smokeless tobacco: Never Tobacco comments: 1-2 cigarettes per day Vaping Use Vaping status: Never Used Substance Use Topics Alcohol use: Yes Comment: drinks on mlgfgqnm-5-4 beers Drug use: Yes Types: Marijuana Comment: last marijuana use was 06/2016 Current Outpatient Medications Medication Sig ipratropium bromide (ATROVENT) 42 mcg (0.06 %) nasal spray Use 1 [place] in each nostril three times a day for 7 days. EPINEPHrine (EPIPEN) 0.3 mg/0.3 mL auto-injector Inject 0.3 mg intramuscularly as needed. benzonatate (TESSALON PERLES) 100 mg capsule Take 1 capsule by mouth three times a day as needed for cough. (Patient not taking: Reported on 07/26/2024) Iqxuuaxhxudzyvu-Bxzkzouzk-ZG (BROMFED DM) 2-30-10 mg/5 mL syrup Take 5 mL by mouth four times a day as needed. (Patient not taking: Reported on 07/26/2024) azelastine 0.1% nasal spray Use 1 [place] in each nostril two times a day. sodium chloride (SALINE NASAL) 0.65 % nasal spray Use 2 Sprays in the nose as needed. gabapentin (NEURONTIN) 400 mg capsule Take 1 capsule by mouth four times daily. QUEtiapine (SEROQUEL) 50 mg tablet Take 50 mg by mouth twice daily. No current facility-administered medications for this visit. ALLERGIES Allergen Reactions Amoxicillin Hives Bees Hives Penicillins Hives Video Exam (Examination performed via Video enabled technology) General appearance: Alert, oriented, pleasant, in NAD: Yes Ill appearing: No Lethargic appearing: No Eyes: Sclera clear: Yes Conjunctiva without erythema: Yes Ears: Tragus / outer ear tenderness by self palpation: No Oropharynx: moist mucus membranes Frontal sinus tenderness by self palpation: No Maxillary sinus tenderness by self palpation: No Tender cervical adenopathy by self palpation: No Respiratory distress: No Coughing noted: No Audible wheezing noted: No ASSESSMENT/PLAN: 1. Viral URI with cough - ICD9: 465.9, ICD10: J06.9 -Pt. With 1 day of symptoms. Recommend supportive care measures. - Discussed viral etiology and rationale for treatment. - Symptomatic treatment with prn analgesia - Supportive care with fluids and rest - Follow up in one week if symptoms persist or sooner if worsening of symptoms - IPRATROPIUM BROMIDE 42 MCG (0.06 %) NASAL SPRAY -Allergy medication (Claritin, Zyrtec, Kendal-generic is fine) to dry up drainage -Nasal saline to flush out bacteria -Ibuprofen to decrease pressure pain. -Mucinex (generic is fine) 1200 mg twice daily to help with cough and to thin out mucus -[email or web address] [email or web address]/. This link shares information about when antibiotics may help and when they may not. 2. Encounter to obtain excuse from work - ICD9: V68.89, ICD10: Z02.89 -Work note sent Lesa Schaeffer APRN.CNP - Red flags discussed for need for in person care - All questions answered Lesa Schaeffer APRN.CNP [facility] 08-12-2024 History of Present illness Narrative Telemedicine Visit - Distance Health Virtual Visit Note Patient seen on [employer] Video Visit platform. Location of patient: [place] I have communicated my name and active licensure. The patient's identity and physical location were verified at the time of this visit. Either the patient or their legal outreach representative has been informed of the risks and benefits of -- and alternatives to -- treatment through a remote evaluation and consents to proceed with the evaluation remotely. CC: Figure out what's going on History of Present Illness Sean Pappas is a 29 year old male who presents for the past 2 days with symptoms that are:constant. Symptoms include: Positive for Nasal congestion and PND, Negative for Fever Recent rapid at-home COVID test completed: No Sick contacts: NA Recent travel: NA OTC meds/remedies that patient has tried: None. PAST MEDICAL HISTORY Diagnosis Date ADHD (attention deficit hyperactivity disorder) Anger Anxiety Bipolar disorder (HCC) Cervicalgia 04/13/2018 Left shoulder pain 04/13/2018 PAST SURGICAL HISTORY Procedure Laterality Date NONE FAMILY HISTORY Problem Relation Age of Onset other (ADHD [Other]) Father other (Ovarian Cyst [Other]) Mother mood disorders Hypertension Maternal Grandfather Social History Tobacco Use Smoking status: Some Days Current packs/day: 0.00 Types: Cigarettes Last attempt to quit: 10/28/2011 Years since quittin.8 Smokeless tobacco: Never Tobacco comments: 1-2 cigarettes per day Vaping Use Vaping status: Never Used Substance Use Topics Alcohol use: Yes Comment: drinks on stkpmmih-9-9 beers Drug use: Yes Types: Marijuana Comment: last marijuana use was 06/2016 Current Outpatient Medications Medication Sig ipratropium bromide (ATROVENT) 42 mcg (0.06 %) nasal spray Use 1 [place] in each nostril three times a day for 7 days. EPINEPHrine (EPIPEN) 0.3 mg/0.3 mL auto-injector Inject 0.3 mg intramuscularly as needed. benzonatate (TESSALON PERLES) 100 mg capsule Take 1 capsule by mouth three times a day as needed for cough. (Patient not taking: Reported on 07/26/2024) Myosfxlraqvfnan-Prbmvlukn-SJ (BROMFED DM) 2-30-10 mg/5 mL syrup Take 5 mL by mouth four times a day as needed. (Patient not taking: Reported on 07/26/2024) azelastine 0.1% nasal spray Use 1 [place] in each nostril two times a day. sodium chloride (SALINE NASAL) 0.65 % nasal spray Use 2 Sprays in the nose as needed. gabapentin (NEURONTIN) 400 mg capsule Take 1 capsule by mouth four times daily. QUEtiapine (SEROQUEL) 50 mg tablet Take 50 mg by mouth twice daily. No current facility-administered medications for this visit. ALLERGIES Allergen Reactions Amoxicillin Hives Bees Hives Penicillins Hives Video Exam (Examination performed via Video enabled technology) General appearance: Alert, oriented, pleasant, in NAD: Yes Ill appearing: No Lethargic appearing: No Eyes: Sclera clear: Yes Conjunctiva without erythema: Yes Ears: Tragus / outer ear tenderness by self palpation: No Oropharynx: moist mucus membranes Frontal sinus tenderness by self palpation: No Maxillary sinus tenderness by self palpation: No Tender cervical adenopathy by self palpation: No Respiratory distress: No Coughing noted: No Audible wheezing noted: No ASSESSMENT/PLAN: 1. Viral URI with cough - ICD9: 465.9, ICD10: J06.9 -Pt. With 1 day of symptoms. Recommend supportive care measures. - Discussed viral etiology and rationale for treatment. - Symptomatic treatment with prn analgesia - Supportive care with fluids and rest - Follow up in one week if symptoms persist or sooner if worsening of symptoms - IPRATROPIUM BROMIDE 42 MCG (0.06 %) NASAL SPRAY -Allergy medication (Claritin, Zyrtec, Kendal-generic is fine) to dry up drainage -Nasal saline to flush out bacteria -Ibuprofen to decrease pressure pain. -Mucinex (generic is fine) 1200 mg twice daily to help with cough and to thin out mucus -http://[email or web address]/pa [email or web address]/antibiotics/. This link shares information about when antibiotics may help and when they may not. 2. Encounter to obtain excuse from work - ICD9: V68.89, ICD10: Z02.89 -Work note sent Lesa Schaeffer APRN.CNP - Red flags discussed for need for in person care - All questions answered Lesa Schaeffer APRN.MIGUEL documented in this encounter [facility] 07-26-2024 Note HNO ID: [id number] Author: ANA PAULA GRULLON PA Service: ? Author Type: Physician Wide Load Escort Type: Progress Notes Filed: 07/26/2024 10:53 Note Text: This note was created using [employer]. Subjective Sean Pappas is a 29 year old male. HPI 29-year-old male presents for left ear pain. Patient states he has had left ear pain, difficulty hearing from the ear, x 1 week. He denies any fevers. No cough or runny nose. No sore throat. Still eating and drinking. He has had issues with his ear in the past. He has not tried anything pzgo-zao-uveblpo for symptoms. No other complaint PAST MEDICAL HISTORY Diagnosis Date ADHD (attention deficit hyperactivity disorder) Anger Anxiety Bipolar disorder (HCC) Cervicalgia 04/13/2018 Left shoulder pain 04/13/2018 PAST SURGICAL HISTORY Procedure Laterality Date NONE ALLERGIES Amoxicillin, Bees, and Penicillins MEDICATIONS EPINEPHrine (EPIPEN) 0.3 mg/0.3 mL auto-injector Inject 0.3 mg intramuscularly as needed. azelastine 0.1% nasal spray Use 1 [place] in each nostril two times a day. sodium chloride (SALINE NASAL) 0.65 % nasal spray Use 2 Sprays in the nose as needed. gabapentin (NEURONTIN) 400 mg capsule Take 1 capsule by mouth four times daily. QUEtiapine (SEROQUEL) 50 mg tablet Take 50 mg by mouth twice daily. doxycycline monohydrate 100 mg tablet Take 1 tablet by mouth two times a day for 7 days. benzonatate (TESSALON PERLES) 100 mg capsule Take 1 capsule by mouth three times a day as needed for cough. (Patient not taking: Reported on 07/26/2024) Zpnhnzrhgmwjrqs-Gsganksfd-JE (BROMFED DM) 2-30-10 mg/5 mL syrup Take 5 mL by mouth four times a day as needed. (Patient not taking: Reported on 07/26/2024) FAMILY HISTORY Problem Relation Age of Onset other (ADHD [Other]) Father other (Ovarian Cyst [Other]) Mother mood disorders Hypertension Maternal Grandfather Social History Tobacco Use Smoking status: Some Days Current packs/day: 0.00 Types: Cigarettes Last attempt to quit: 10/28/2011 Years since quittin.7 Smokeless tobacco: Never Tobacco comments: 1-2 cigarettes per day Vaping Use Vaping status: Never Used Substance Use Topics Alcohol use: Yes Comment: drinks on yreaggfw-3-2 beers Drug use: Yes Types: Marijuana Comment: last marijuana use was 06/2016 Review of Systems Constitutional: Negative for chills and fever. HENT: Positive for ear pain. Negative for congestion and sore throat. Respiratory: Negative for cough and shortness of breath. Gastrointestinal: Negative for diarrhea and vomiting. Objective BP 130/108 Pulse 103 Temp 36.9 ?C (98.5 ?F) (Right Tympanic) Resp 16 Wt 98.9 kg (218 lb 0.6 oz) SpO2 98% BMI 29.57 kg/m? Physical Exam Vitals and nursing note reviewed. Constitutional: General: He is not in acute distress. Appearance: Normal appearance. He is not toxic-appearing. HENT: Right Ear: Tympanic membrane and ear canal normal. Left Ear: A middle ear effusion is present. Tympanic membrane is erythematous. Nose: Nose normal. Mouth/Throat: Mouth: Mucous membranes are moist. Eyes: Conjunctiva/sclera: Conjunctivae normal. Cardiovascular: Rate and Rhythm: Normal rate and regular rhythm. Pulmonary: Effort: Pulmonary effort is normal. Breath sounds: Normal breath sounds. Skin: General: Skin is warm and dry. Neurological: Mental Status: He is alert. Assessment and Plan ASSESSMENT/PLAN: 1. Acute otitis media, left - ICD9: 382.9, ICD10: H66.92 (primary diagnosis) - Will begin treatment with Doxycycline - The patient should also be given OTC decongestants prn for the first 5-7 days of treatment. - Supportive care with plenty of fluids, rest, and analgesia prn. 2. Elevated blood pressure reading without diagnosis of hypertension - ICD9: 796.2, ICD10: R03.0 -Blood pressure elevated today. Asymptomatic. Patient states he has been told in the past that he is elevated blood pressure. -Advised patient to schedule follow-up with PCP and keep a blood pressure log at home. Diagnosis and treatment plan were discussed and questions were answered to the patient's satisfaction. Pt acknowledged understanding of concepts and follow up plan. Specific signs and symptoms that would indicate the need for higher level of care were discussed in detail warranting prompt ER evaluation. RAVI Cifuentes [facility] 07-26-2024 History of Present illness Narrative This note was created using [employer]. Subjective Sean Pappas is a 29 year old male. HPI 29-year-old male presents for left ear pain. Patient states he has had left ear pain, difficulty hearing from the ear, x 1 week. He denies any fevers. No cough or runny nose. No sore throat. Still eating and drinking. He has had issues with his ear in the past. He has not tried anything oxwm-ztp-nfiatog for symptoms. No other complaint PAST MEDICAL HISTORY Diagnosis Date ADHD (attention deficit hyperactivity disorder) Anger Anxiety Bipolar disorder (HCC) Cervicalgia 04/13/2018 Left shoulder pain 04/13/2018 PAST SURGICAL HISTORY Procedure Laterality Date NONE ALLERGIES Amoxicillin, Bees, and Penicillins MEDICATIONS EPINEPHrine (EPIPEN) 0.3 mg/0.3 mL auto-injector Inject 0.3 mg intramuscularly as needed. azelastine 0.1% nasal spray Use 1 [place] in each nostril two times a day. sodium chloride (SALINE NASAL) 0.65 % nasal spray Use 2 Sprays in the nose as needed. gabapentin (NEURONTIN) 400 mg capsule Take 1 capsule by mouth four times daily. QUEtiapine (SEROQUEL) 50 mg tablet Take 50 mg by mouth twice daily. doxycycline monohydrate 100 mg tablet Take 1 tablet by mouth two times a day for 7 days. benzonatate (TESSALON PERLES) 100 mg capsule Take 1 capsule by mouth three times a day as needed for cough. (Patient not taking: Reported on 07/26/2024) Ipfyppsjhbyqzry-Dfowlaqlt-RT (BROMFED DM) 2-30-10 mg/5 mL syrup Take 5 mL by mouth four times a day as needed. (Patient not taking: Reported on 07/26/2024) FAMILY HISTORY Problem Relation Age of Onset other (ADHD [Other]) Father other (Ovarian Cyst [Other]) Mother mood disorders Hypertension Maternal Grandfather Social History Tobacco Use Smoking status: Some Days Current packs/day: 0.00 Types: Cigarettes Last attempt to quit: 10/28/2011 Years since quittin.7 Smokeless tobacco: Never Tobacco comments: 1-2 cigarettes per day Vaping Use Vaping status: Never Used Substance Use Topics Alcohol use: Yes Comment: drinks on jndahhji-5-0 beers Drug use: Yes Types: Marijuana Comment: last marijuana use was 06/2016 Review of Systems Constitutional: Negative for chills and fever. HENT: Positive for ear pain. Negative for congestion and sore throat. Respiratory: Negative for cough and shortness of breath. Gastrointestinal: Negative for diarrhea and vomiting. Objective BP 130/108 Pulse 103 Temp 36.9 C (98.5 F) (Right Tympanic) Resp 16 Wt 98.9 kg (218 lb 0.6 oz) SpO2 98% BMI 29.57 kg/m Physical Exam Vitals and nursing note reviewed. Constitutional: General: He is not in acute distress. Appearance: Normal appearance. He is not toxic-appearing. HENT: Right Ear: Tympanic membrane and ear canal normal. Left Ear: A middle ear effusion is present. Tympanic membrane is erythematous. Nose: Nose normal. Mouth/Throat: Mouth: Mucous membranes are moist. Eyes: Conjunctiva/sclera: Conjunctivae normal. Cardiovascular: Rate and Rhythm: Normal rate and regular rhythm. Pulmonary: Effort: Pulmonary effort is normal. Breath sounds: Normal breath sounds. Skin: General: Skin is warm and dry. Neurological: Mental Status: He is alert. Assessment and Plan ASSESSMENT/PLAN: 1. Acute otitis media, left - ICD9: 382.9, ICD10: H66.92 (primary diagnosis) - Will begin treatment with Doxycycline - The patient should also be given OTC decongestants prn for the first 5-7 days of treatment. - Supportive care with plenty of fluids, rest, and analgesia prn. 2. Elevated blood pressure reading without diagnosis of hypertension - ICD9: 796.2, ICD10: R03.0 -Blood pressure elevated today. Asymptomatic. Patient states he has been told in the past that he is elevated blood pressure. -Advised patient to schedule follow-up with PCP and keep a blood pressure log at home. Diagnosis and treatment plan were discussed and questions were answered to the patient's satisfaction. Pt acknowledged understanding of concepts and follow up plan. Specific signs and symptoms that would indicate the need for higher level of care were discussed in detail warranting prompt ER evaluation. RAVI Cifuentes documented in this encounter [facility] 06-10-2024 Note HNO ID: [id number] Author: NED SHER APRN.APPAREL CUTTER Service: ? Author Type: Nurse Practitioner Type: Progress Notes Filed: 06/10/2024 12:41 Note Text: Telemedicine Visit - Distance Health Virtual Visit Note Patient seen on [employer] Video Visit platform. Location of patient: [place] I have communicated my name and active licensure. The patient's identity and physical location were verified at the time of this visit. Either the patient or their legal outreach representative has been informed of the risks and benefits of -- and alternatives to -- treatment through a remote evaluation and consents to proceed with the evaluation remotely. CC: History of Present Illness Sean Pappas is a 28 year old male who presents for the past 1 day with symptoms that are:stable. Symptoms include: Positive for Nasal congestion, Negative for Fever, Chills/Sweats, Cough, Hemoptysis, SOB, SANTOS, Wheezing, PND, Ear pain, Ear pressure, Eyes: NA, Rhinorrhea: NA, Face pain/pressure, Headache, Teeth pain , Otalgia, Sore throat, Fatigue, Nausea, Emesis, and Diarrhea, Oral intake: Normal appetite and Adequate fluid intake Recent rapid at-home COVID test completed: No Sick contacts: denies Recent travel: denies /Lactating: : N/A: Lactating: N/A OTC meds/remedies that patient has tried: none Patient sent home from work due to symptom and was told to do your thing and get a work excuse to return to work. PAST MEDICAL HISTORY No date: ADHD (attention deficit hyperactivity disorder) No date: Anger No date: Anxiety No date: Bipolar disorder (HCC) 04/13/2018: Cervicalgia 04/13/2018: Left shoulder pain PAST SURGICAL HISTORY No date: NONE FAMILY HISTORY Problem Relation Age of Onset other (ADHD [Other]) Father other (Ovarian Cyst [Other]) Mother mood disorders Hypertension Maternal Grandfather Social History Tobacco Use Smoking status: Some Days Types: Cigarettes Last attempt to quit: 10/28/2011 Years since quittin.6 Smokeless tobacco: Never Tobacco comments: 1-2 cigarettes per day Vaping Use Vaping Use: Never used Substance Use Topics Alcohol use: Yes Comment: drinks on uexprhhd-9-8 beers Drug use: Yes Types: Marijuana Comment: last marijuana use was 06/2016 Current Outpatient Medications Medication Sig ipratropium bromide (ATROVENT) 42 mcg (0.06 %) nasal spray Use 1 [place] in each nostril three times a day for 14 days. benzonatate (TESSALON PERLES) 100 mg capsule Take 1 capsule by mouth three times a day as needed for cough. Ntbrelguditggob-Tlkfckdro-CM (BROMFED DM) 2-30-10 mg/5 mL syrup Take 5 mL by mouth four times a day as needed. azelastine 0.1% nasal spray Use 1 [place] in each nostril two times a day. sodium chloride (SALINE NASAL) 0.65 % nasal spray Use 2 Sprays in the nose as needed. gabapentin (NEURONTIN) 400 mg capsule Take 1 capsule by mouth four times daily. QUEtiapine (SEROQUEL) 50 mg tablet Take 50 mg by mouth twice daily. No current facility-administered medications for this visit. ALLERGIES Allergen Reactions Amoxicillin Hives Bees Hives Penicillins Hives Video Exam (Examination performed via Video enabled technology) General appearance: Alert, oriented, very dismissive in NAD: Yes Ill appearing: No Lethargic appearing: No Eyes: Sclera clear: Yes Conjunctiva without erythema: Yes Ears: Tragus / outer ear tenderness by self palpation: No Oropharynx: moist mucus membranes Frontal sinus tenderness by self palpation: No Maxillary sinus tenderness by self palpation: No Tender cervical adenopathy by self palpation: No Respiratory distress: No Coughing noted: No Audible wheezing noted: No ASSESSMENT/PLAN: 1. Nasal congestion - ICD9: 478.19, ICD10: R09.81 (primary diagnosis) - Home covid test - IPRATROPIUM BROMIDE 42 MCG (0.06 %) NASAL SPRAY 2. Encounter to obtain excuse from work - ICD9: V68.89, ICD10: Z02.89 - uploaded in [employer] -[email or web address] This link shares information about when antibiotics may help and when they may not. - Red flags discussed for need for in person care - All questions answered Ned Sher APRN.CNP [facility] 06-10-2024 History of Present illness Narrative Telemedicine Visit - Distance Health Virtual Visit Note Patient seen on [facility] Zoom Video Visit platform. Location of patient: [place] I have communicated my name and active licensure. The patient's identity and physical location were verified at the time of this visit. Either the patient or their legal outreach representative has been informed of the risks and benefits of -- and alternatives to -- treatment through a remote evaluation and consents to proceed with the evaluation remotely. CC: History of Present Illness Sean Pappas is a 28 year old male who presents for the past 1 day with symptoms that are:stable. Symptoms include: Positive for Nasal congestion, Negative for Fever, Chills/Sweats, Cough, Hemoptysis, SOB, SANTOS, Wheezing, PND, Ear pain, Ear pressure, Eyes: NA, Rhinorrhea: NA, Face pain/pressure, Headache, Teeth pain , Otalgia, Sore throat, Fatigue, Nausea, Emesis, and Diarrhea, Oral intake: Normal appetite and Adequate fluid intake Recent rapid at-home COVID test completed: No Sick contacts: denies Recent travel: denies /Lactating: : N/A: Lactating: N/A OTC meds/remedies that patient has tried: none Patient sent home from work due to symptom and was told to do your thing and get a work excuse to return to work. PAST MEDICAL HISTORY No date: ADHD (attention deficit hyperactivity disorder) No date: Anger No date: Anxiety No date: Bipolar disorder (HCC) 04/13/2018: Cervicalgia 04/13/2018: Left shoulder pain PAST SURGICAL HISTORY No date: NONE FAMILY HISTORY Problem Relation Age of Onset other (ADHD [Other]) Father other (Ovarian Cyst [Other]) Mother mood disorders Hypertension Maternal Grandfather Social History Tobacco Use Smoking status: Some Days Types: Cigarettes Last attempt to quit: 10/28/2011 Years since quittin.6 Smokeless tobacco: Never Tobacco comments: 1-2 cigarettes per day Vaping Use Vaping Use: Never used Substance Use Topics Alcohol use: Yes Comment: drinks on hvdxffcd-7-5 beers Drug use: Yes Types: Marijuana Comment: last marijuana use was 06/2016 Current Outpatient Medications Medication Sig ipratropium bromide (ATROVENT) 42 mcg (0.06 %) nasal spray Use 1 [place] in each nostril three times a day for 14 days. benzonatate (TESSALON PERLES) 100 mg capsule Take 1 capsule by mouth three times a day as needed for cough. Txjuxffrgsgomax-Pyjajbuxf-HC (BROMFED DM) 2-30-10 mg/5 mL syrup Take 5 mL by mouth four times a day as needed. azelastine 0.1% nasal spray Use 1 [place] in each nostril two times a day. sodium chloride (SALINE NASAL) 0.65 % nasal spray Use 2 Sprays in the nose as needed. gabapentin (NEURONTIN) 400 mg capsule Take 1 capsule by mouth four times daily. QUEtiapine (SEROQUEL) 50 mg tablet Take 50 mg by mouth twice daily. No current facility-administered medications for this visit. ALLERGIES Allergen Reactions Amoxicillin Hives Bees Hives Penicillins Hives Video Exam (Examination performed via Video enabled technology) General appearance: Alert, oriented, very dismissive in NAD: Yes Ill appearing: No Lethargic appearing: No Eyes: Sclera clear: Yes Conjunctiva without erythema: Yes Ears: Tragus / outer ear tenderness by self palpation: No Oropharynx: moist mucus membranes Frontal sinus tenderness by self palpation: No Maxillary sinus tenderness by self palpation: No Tender cervical adenopathy by self palpation: No Respiratory distress: No Coughing noted: No Audible wheezing noted: No ASSESSMENT/PLAN: 1. Nasal congestion - ICD9: 478.19, ICD10: R09.81 (primary diagnosis) - Home covid test - IPRATROPIUM BROMIDE 42 MCG (0.06 %) NASAL SPRAY 2. Encounter to obtain excuse from work - ICD9: V68.89, ICD10: Z02.89 - uploaded in [facility] -[email or web address] [email or web address] This link shares information about when antibiotics may help and when they may not. - Red flags discussed for need for in person care - All questions answered Ned Sher APRN.CNP documented in this encounter [facility] 04-13-2024 Note HNO ID: [id number] Author: MASTER HERNANDEZ APRN.CNP Service: ? Author Type: Nurse Practitioner Type: Progress Notes Filed: 04/13/2024 13:59 Note Text: She came and said he feels very weak dizzy and lightheaded. Patient says he feels like he is extremely dehydrated. 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 Patient says he feels like he is going to pass out. Patient does not appear to be in distress at this time. Patient was instructed to go to the ER for full evaluation and rehydration. Patient's significant other will take him. [facility] 04-13-2024 History of Present illness Narrative She came and said he feels very weak dizzy and lightheaded. Patient says he feels like he is extremely dehydrated. 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 Patient says he feels like he is going to pass out. Patient does not appear to be in distress at this time. Patient was instructed to go to the ER for full evaluation and rehydration. Patient's significant other will take him. documented in this encounter [facility] 03-17-2024 Instructions Lesa Schaeffer APRN.CNP - 03/17/2024 10:31 AM EDT I Feel So Sick, Don t I Need Antibiotics? Did you know. . . There s only a 1 in 4000 chance that an antibiotic will help most acute upper respiratory infections. But there s a 1 in 4 chance of diarrhea and a 1 in 50 chance of a skin reaction and a 1 in 1000 chance it ll cause an ER visit due to some side effect. Antibiotics can also lead to more resistant infections that are harder to treat. Bottom line: There s little to no benefit to taking antibiotics for most acute upper respiratory tract infections...and the downsides are real. Viruses cannot be treated by antibiotics. Viruses cause most upper respiratory infections, which include head colds, sore throats, bronchitis, and sinus infections. The common cold and influenza do not respond to antibiotics. Less than 10 percent of acute bronchitis cases are caused by bacteria. Most cases of acute ear infections also resolve without antibiotics. Sore throats (pharyngitis) are usually caused by viruses as well. Antibiotics are not recommended unless you have strep throat and only about 15 to 30 percent of pharyngitis cases in children and up to 10 percent of cases in adults are due to strep throat. Almost all cases of acute bacterial sinusitis resolve without antibiotics. There are a few situations in which antibiotics are needed, however. See your health care provider if you have a decreased immune system due to cancer, or if you are taking steroids, have HIV, or have had an organ transplant, or if your symptoms worsen or last longer than 7 to 10 days. Most often you should use the khzz-btr-gnarhlv symptomatic treatment/s that your health care provider has recommended. These would include analgesic products such as acetaminophen (Tylenol ), decongestants, antihistamines, salt water gargles, drinking warm tea, and other methods to help treat the symptoms. Also remember that your best defense against getting the flu is to get a flu shot, but this does not, unfortunately, protect you against the many other viruses out in the environment that cause the other kinds of illnesses other than the actual influenza. documented in this encounter [facility] 03-17-2024 History of Present illness Narrative Telemedicine Visit - Distance Health Virtual Visit Note Patient seen on [employer] Video Visit platform. Location of patient: [place] I have communicated my name and active licensure. The patient's identity and physical location were verified at the time of this visit. Either the patient or their legal outreach representative has been informed of the risks and benefits of -- and alternatives to -- treatment through a remote evaluation and consents to proceed with the evaluation remotely. History of Present Illness Sean Pappas is a 28 year old year old male who presents for the past 1 day with symptoms that are:constant. Symptoms include: Positive for Cough, Nasal congestion, PND, and Rhinorrhea, Negative for Fever Oral intake: Yes Tobacco use: No Second hand smoke exposure: No Recent exposure to strep:No Sick contacts: NA Recent travel: NA OTC meds/remedies that patient has tried: Sudafed. PAST MEDICAL HISTORY Diagnosis Date ADHD (attention deficit hyperactivity disorder) Anger Anxiety Bipolar disorder (HCC) Cervicalgia 04/13/2018 Left shoulder pain 04/13/2018 PAST SURGICAL HISTORY Procedure Laterality Date NONE FAMILY HISTORY Problem Relation Age of Onset other (ADHD [Other]) Father other (Ovarian Cyst [Other]) Mother mood disorders Hypertension Maternal Grandfather Social History Tobacco Use Smoking status: Some Days Types: Cigarettes Last attempt to quit: 10/28/2011 Years since quittin.3 Smokeless tobacco: Never Tobacco comments: 1-2 cigarettes per day Vaping Use Vaping Use: Never used Substance Use Topics Alcohol use: Yes Comment: drinks on robsegjs-5-3 beers Drug use: Yes Types: Marijuana Comment: last marijuana use was 06/2016 Current Outpatient Medications Medication Sig benzonatate (TESSALON PERLES) 100 mg capsule Take 1 capsule by mouth three times a day as needed for cough. Rpeqnawxucxdijs-Sqtmffqrz-XP (BROMFED DM) 2-30-10 mg/5 mL syrup Take 5 mL by mouth four times a day as needed. azelastine 0.1% nasal spray Use 1 [place] in each nostril two times a day. sodium chloride (SALINE NASAL) 0.65 % nasal spray Use 2 Sprays in the nose as needed. gabapentin (NEURONTIN) 400 mg capsule Take 1 capsule by mouth four times daily. QUEtiapine (SEROQUEL) 50 mg tablet Take 50 mg by mouth twice daily. No current facility-administered medications for this visit. ALLERGIES Allergen Reactions Amoxicillin Hives Bees Hives Penicillins Hives Video Exam (Examination performed via Video enabled technology) General appearance: Alert, oriented, pleasant, in NAD :Yes Ill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 Response Recorded Date/ Time Living Will No April 27, 2023 1 2:41pm Power of Recharger No April 27, 2023 12:41pm Advance Directive Response Recorded Date/ Time Living Will No June 22 1:12am Power of Recharger No June 22, 2 023 1:12am Chief Complaint and Reason for Visit Chief Complaint LEFT KNEE PAIN Chief Complaint LEFT KNEE PAIN LEFT KNEE LEFT KNEE LEFT KNEE PAIN Reason for Visit Left knee pain Left knee sprain Internal derangement of left knee Chief Complaint LEFT KNEE LEFT KNEE LEFT KNEE PAIN LEFT KNEE DIZZINESS Reason for Visit Left knee pain Left knee sprain Internal derangement of left knee Gastrocnemius strain, left Internal derangement of left knee Chief Complaint DIZZINESS LACERATION Chief Complaint DIZZINESS LACERATION OTHER PAIN Reason for Referral Specialty Diagnoses / Procedures Referred By Melissa trinh Referred To Contact [facility] Diagnoses BPPV (benign paroxysmal positional vertigo), unspecified laterality Procedures CONSULT TO PHYSICAL THERAPY PHYSICAL THERAPY EVALUATION HIGH COMPLEX 45 MINS Chintan Chan MD [address] [place] [address] [facility] [address] [place] [id number] Referral ID Status Reason Start Date Expiration Date Visits Requested Visits Authorized [id number] Pending Review Auto-Generat ed Referral 03/10/2023 03/09/2024 1 1 Additional Source Comments (unrecognized sect ion and content) No Status Records FoundNo Status Records FoundNo Status Records FoundNo Status Records FoundNo Status Records Found INFORMATION SOURCE (unrecogn ized section and content) DATE CREATED AUTHOR 04/13/2018 [facility] DATE CREATED AUTHOR AUTHOR'S ORGANIZ ATION 04/22/2018 [facility] ([place]) DATE CREATED AUTHOR AUTHOR'S ORGANIZ ATION 09/09/2022 [facility] DATE CREATED AUTHOR AUTHOR'S ORGANIZ ATION 12/14/2024 [facility] DATE CREATED AUTHOR AUTHOR'S ORGANIZ ATION 04/10/2025 [facility] Goals (unrecognized section and content) Goals may be documented in a n alternate sectionGoals may be documented in an alternate sectionGoals may be documented in an alternate sectionGoals may be documented in an alternate sectionGoals may be documented in an alternate section Care Teams (unrecognized sec tion and content) Team Status: Active Member Role Status Dates No Primary Care Physician Family Provider Active No Primary Care Physician Primary Care Provider Active Team Status: Inactive Member Role Status Dates No Primary Care Physician Primary Care Provider, Refer ring Provider Active RAVI Pratt Attending Provider Active Team Status: Inactive Member Role Status Dates No Primary Care Physician Primary Care Provider Active Ed Physician Provider Attending Provider, Emergency Pr ovider Active Team Status: Inactive Member Role Status Dates No Primary Care Physician Primary Care Provider Active RAVI Pratt Attending Provider Active Electronics Technician Apprentice Relationship Specialty Start Date End Date Chintan Chan MD [address] [place] [address] PCP - General Family Medicine 11/13/16 Raheel Go [address] [place] [address] Referring Orthopedics 02/24/18 Electronics Technician Apprentice Relationship Specialty Start Date End Date Chintan Chan MD [address] [place] [address] PCP - General Family Medicine 11/13/16 Raheel Go [address] [place] [address] Referring Orthopedics 02/24/18 Team Status: Inactive Member Role Status Dates No Primary Care Physician Primary Care Provider Active Dr. Isael Pinto MD Emergency Provider Active Electronics Technician Apprentice Relationship Specialty Start Date End Date Raheel Go [address] [place], [place] [address] Referring Orthopedics 02/24/18 Team Status: Inactive Member Role Status Dates No Primary Care Physician Primary Care Provider Active Dr. Isael Pinto MD Attending Provider, Emergency Provider Active Team Status: Inactive Member Role Status Dates No Primary Care Physician Primary Care Provider Active Dr. Keith Nelson MD Emergency Provider Active Electronics Technician Apprentice Relationship Specialty Start Date End Date Donavan Raheel Aj [address] [facility] [address] [place] [address] Referring Orthopedics 02/24/18 Team Status: Inactive Member Role Status Dates No Primary Care Physician Primary Care Provider Active Dr. Keith Nelson MD Attending Provider, Emergency Pro vider Active Team Status: Inactive Member Role Status Dates No Primary Care Physician Primary Care Provider Active Dr. Poncho Perez , Emergency Provider Active Electronics Technician Apprentice Relationship Specialty Start Date End Date Raheel Go [address] [facility] [address] [place] [address] Referring Orthopedics 02/24/18 Electronics Technician Apprentice Relationship Specialty Start Date End Date Raheel Go [address] [facility] [address] [place] [address] Referring Orthopedics 02/24/18 Electronics Technician Apprentice Relationship Specialty Start Date End Date Raheel Go [address] [facility] [address] [place] [address] Referring Orthopedics 02/24/18 Electronics Technician Apprentice Relationship Specialty Start Date End Date Raheel Go [address] [facility] [address] [place] [address] Referring Orthopedics 02/24/18 Electronics Technician Apprentice Relationship Specialty Start Date End Date Raheel Go [address] [facility] [address] [place] [address] Referring Orthopedics 02/24/18 Electronics Technician Apprentice Relationship Specialty Start Date End Date Raheel Go [address] [place] [address] Referring Orthopedics 02/24/18 Electronics Technician Apprentice Relationship Specialty Start Date End Date Raheel Go [address] [place] [address] Referring Orthopedics 02/24/18 Electronics Technician Apprentice Relationship Specialty Start Date End Date Raheel Go [address] [place] [address] Referring Orthopedics 02/24/18 Electronics Technician Apprentice Relationship Specialty Start Date End Date Raheel Go [address] [place] [address] Referring Orthopedics 02/24/18 Electronics Technician Apprentice Relationship Specialty Start Date End Date Raheel Go [address] [place] [address] Referring Orthopedics 02/24/18 Electronics Technician Apprentice Relationship Specialty Start Date End Date Chintan Chan MD [address] [place] [address] PCP - General Family Medicine 07/26/24 07/26/24 Raheel Go [address] [place] [address] Referring Orthopedics 02/24/18 Electronics Technician Apprentice Relationship Specialty Start Date End Date Raheel Go [address] [place] [address] [address] [place] [address] Referring Orthopedics 02/24/18 Electronics Technician Apprentice Relationship Specialty Start Date End Date Raheel Go [address] [place] [address] Referring Orthopedics 02/24/18 Electronics Technician Apprentice Relationship Specialty Start Date End Date Raheel Go [address] [facility] [address] [place] [address] Referring Orthopedics 02/24/18 Electronics Technician Apprentice Relationship Specialty Start Date End Date Raheel Go [address] [facility] [address] [place] [address] Referring Orthopedics 02/24/18 Source Comments (unrecognize d section and content) In the event this informatio n is protected by the Federal Confidentiality of Alcohol and Drug Abuse Patient Records regulations: The Federal rules restrict any use of the information to criminally investigate or prosecute any alcohol or drug abuse patient.[facility] the event this information is protected by the Federal Confidentiality of Alcohol and Drug Abuse Patient Records regulations: The Federal rules restrict any use of the information to criminally investigate or prosecute any alcohol or drug abuse patient.[facility] the event this information is protected by the Federal Confidentiality of Alcohol and Drug Abuse Patient Records regulations: The Federal rules restrict any use of the information to criminally investigate or prosecute any alcohol or drug abuse patient.[facility] the event this information is protected by the Federal Confidentiality of Alcohol and Drug Abuse Patient Records regulations: The Federal rules restrict any use of the information to criminally investigate or prosecute any alcohol or drug abuse patient.[facility] the event this information is protected by the Federal Confidentiality of Alcohol and Drug Abuse Patient Records regulations: The Federal rules restrict any use of the information to criminally investigate or prosecute any alcohol or drug abuse patient.[facility] the event this information is protected by the Federal Confidentiality of Alcohol and Drug Abuse Patient Records regulations: The Federal rules restrict any use of the information to criminally investigate or prosecute any alcohol or drug abuse patient.[facility] the event this information is protected by the Federal Confidentiality of Alcohol and Drug Abuse Patient Records regulations: The Federal rules restrict any use of the information to criminally investigate or prosecute any alcohol or drug abuse patient.[facility] the event this information is protected by the Federal Confidentiality of Alcohol and Drug Abuse Patient Records regulations: The Federal rules restrict any use of the information to criminally investigate or prosecute any alcohol or drug abuse patient.[facility] the event this information is protected by the Federal Confidentiality of Alcohol and Drug Abuse Patient Records regulations: The Federal rules restrict any use of the information to criminally investigate or prosecute any alcohol or drug abuse patient.[facility] the event this information is protected by the Federal Confidentiality of Alcohol and Drug Abuse Patient Records regulations: The Federal rules restrict any use of the information to criminally investigate or prosecute any alcohol or drug abuse patient.[facility] the event this information is protected by the Federal Confidentiality of Alcohol and Drug Abuse Patient Records regulations: The Federal rules restrict any use of the information to criminally investigate or prosecute any alcohol or drug abuse patient.[facility] Hospital[facility] the event this information is protected by the Federal Confidentiality of Alcohol and Drug Abuse Patient Records regulations: The Federal rules restrict any use of the information to criminally investigate or prosecute any alcohol or drug abuse patient.[facility] Hospital[facility] the event this information is protected by the Federal Confidentiality of Alcohol and Drug Abuse Patient Records regulations: The Federal rules restrict any use of the information to criminally investigate or prosecute any alcohol or drug abuse patient.[facility] Hospital[facility] the event this information is protected by the Federal Confidentiality of Alcohol and Drug Abuse Patient Records regulations: The Federal rules restrict any use of the information to criminally investigate or prosecute any alcohol or drug abuse patient.[facility] Hospital[facility] the event this information is protected by the Federal Confidentiality of Alcohol and Drug Abuse Patient Records regulations: The Federal rules restrict any use of the information to criminally investigate or prosecute any alcohol or drug abuse patient.[facility] Hospital[facility] the event this information is protected by the Federal Confidentiality of Alcohol and Drug Abuse Patient Records regulations: The Federal rules restrict any use of the information to criminally investigate or prosecute any alcohol or drug abuse patient.[facility] Hospital[facility] the event this information is protected by the Federal Confidentiality of Alcohol and Drug Abuse Patient Records regulations: The Federal rules restrict any use of the information to criminally investigate or prosecute any alcohol or drug abuse patient.[facility] HospitalIn the event this information is protected by the Federal Confidentiality of Alcohol and Drug Abuse Patient Records regulations: The Federal rules restrict any use of the information to criminally investigate or prosecute any alcohol or drug abuse patient.[facility] HospitalIn the event this information is protected by the Federal Confidentiality of Alcohol and Drug Abuse Patient Records regulations: The Federal rules restrict any use of the information to criminally investigate or prosecute any alcohol or drug abuse patient.[facility] HospitalIn the event this information is protected by the Federal Confidentiality of Alcohol and Drug Abuse Patient Records regulations: The Federal rules restrict any use of the information to criminally investigate or prosecute any alcohol or drug abuse patient.[facility] HospitalIn the event this information is protected by the Federal Confidentiality of Alcohol and Drug Abuse Patient Records regulations: The Federal rules restrict any use of the information to criminally investigate or prosecute any alcohol or drug abuse patient.[facility] HospitalIn the event this information is protected by the Federal Confidentiality of Alcohol and Drug Abuse Patient Records regulations: The Federal rules restrict any use of the information to criminally investigate or prosecute any alcohol or drug abuse patient.[facility] HospitalIn the event this information is protected by the Federal Confidentiality of Alcohol and Drug Abuse Patient Records regulations: The Federal rules restrict any use of the information to criminally investigate or prosecute any alcohol or drug abuse patient.[facility] HospitalIn the event this information is protected by the Federal Confidentiality of Alcohol and Drug Abuse Patient Records regulations: The Federal rules restrict any use of the information to criminally investigate or prosecute any alcohol or drug abuse patient.[facility] Reason for Visit (unrecogniz ed section and content) Reason Comments Sore Throat Congestion, bilatera l ear pain, cough x 4 days Reason Comments Follow Up For High blood pressure; UC 01/06/2023 Reason Comments ER F/U For elevated BP- [place] new medication causing fatigue. Would like work excuse for today. Reason Comments Nausea diarrhea x couple da ys Reason Comments Illness Reason Comments Work excuse Reason Comments No Show Reason Comments Abdominal Pain Stomach pain, diarrh ea possible food poisoning x 1 day Reason Comments Appointment Cancelled Reason Comments Nasal Congestion Reason Comments Virus Reason Comments Rash Rash on neck, weak, dizzy and feels dehydrated x 1 day Reason Comments URI Return To Work Letter Reason Comments Ear Problem RICARDO ears; LEFT worse feels muffled with pressure & difficulty hearing x 1 week Reason Comments Figure out what's going on Reason Comments My ankle Reason Comments Chest Congestion cough x 1 week FOR RECORDS PERTAINING TO PATIENTS WHO ARE OR HAVE BEEN ENROLLED IN A CHEMICAL DEPENDENCY/SUBSTANCEABUSE PROGRAM, SOME INFORMATION MAY BE OMITTED. This clinical summary was aggregated from multiple sources. Caution should be exercised in using it in the provision of clinical care. This summary normalizes information from multiple sources, and as a consequence, information in this document may materially change the coding, format and clinical context of patient data. In addition, data may be omitted in some cases. CLINICAL DECISIONS SHOULD BE BASED ON THE PRIMARY CLINICAL RECORDS. [employer] provides no warranty or guarantee of the accuracy or completeness of information in this document.
--- NOTE | 2025-06-04 01:59 | PCA ---
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
--- NOTE | 2025-06-04 02:01 | CT_ITS ---
PROCEDURE: SINUS/FACIAL BONE 06/04/2025 REASON FOR EXAM: FOLLOW-UP SCOOTER TRAUMA TECHNIQUE: SINUS/FACIAL BONE Coronal and Sagittal reconstruction series were provided. One or more dose reduction techniques were used (e.g., Automated exposure control, adjustment of the mA and/or kV according to patient size, use of iterative reconstruction technique). RADIATION DOSE SUMMARY: CTDlvol: 29 mGy DLP: 621 mGycm COMPARISON: No FINDINGS: There is a right orbital floor fracture, herniation of orbital fat not the inferior rectus muscle. There is a left nasal tip fracture. There is right maxillary sinus small hemorrhage. Orbital soft tissues are otherwise intact. No additional facial fracture or dislocation. CT/Sinus/Facial Bone IMPRESSION: Right orbital floor fracture. Left nasal tip fracture. Reading Location: [place] [id number]
== END 2025-06-04 03:19 | disposition home or self-care (01) ==
PROVIDERS: Emergency Provider Emergency Medicine; Visit Provider Emergency Medicine
DX: S02.31XA Fracture of orbital floor, right side, initial encounter for closed fracture (principal); S06.9XAA Unspecified intracranial injury with loss of consciousness status unknown, initial encounter; S02.2XXA Fracture of nasal bones, initial encounter for closed fracture; R00.0 Tachycardia, unspecified; F17.210 Nicotine dependence, cigarettes, uncomplicated; V19.9XXA Pedal cyclist (driver) (passenger) injured in unspecified traffic accident, initial encounter; Y93.55 Activity, bike riding; Z23 Encounter for immunization
CPT/HCPCS: 70450; 70486; 71260; 72125; 73562; 74177; 80048; 80076; 83690; 85025; 85610; 85730; 90471; 90715; 93005; 96360; 96361; 99285; Q9967; A4216